=== PATIENT | male | born 1960 | race Caucasian/White ===

== ENCOUNTER 2016-10-04 12:18 | Inpatient (IN) ==
[2016-10-04] MEDS ORDERED: 0.9 % Sodium Chloride 1,000 ML IVC ONE (12:39)
[2016-10-04] MEDS ORDERED: Ipratropium/Albuterol Neb 3 ML IH ONE (12:39)
[2016-10-04] MEDS ORDERED: methylPREDNISolone 125 MG/2 ML VIAL IVP ONE (12:39)
--- NOTE | 2016-10-04 12:46 | Emergency Department Note ---
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 She states he has had a lot of weight loss also. She is a's current cigarette smoker. Pt Subjective Complaint: Neck swelling Location: neck Radiation: neck Pain Scale: 5 Quality: aching Consistency: constant Improves with: nothing Worsens with: nothing Associated symptoms: Reports: shortness of breath, weakness (Generalized) - Related Data Home Medications Medication Instructions Recorded Confirmed Aspirin [Lo-Dose Aspirin EC] 81 mg PO 07/16/16 Atorvastatin [Lipitor] 40 mg PO HS 07/16/16 07/16/16 Clopidogrel Bisulfate [Plavix] 75 mg PO 07/16/16 Ergocalciferol (VITAMIN D2) 50,000 unit PO 07/16/16 [Vitamin D2] Gabapentin [Neurontin] 800 mg PO 07/16/16 Isosorbide MONOnitrate (24 HR) 60 mg PO 07/16/16 [Imdur] Loratadine [Allergy Relief] 10 mg PO 07/16/16 Nitroglycerin [Nitro-Dur] 1 each TD 07/16/16 Pantoprazole Sodium [Protonix] 40 mg PO 07/16/16 07/16/16 Tramadol HCl [Ultram] 50 mg PO BID PRN 07/16/16 07/16/16 Previous Rx's Medication Instructions Recorded levoFLOXacin [Levaquin] 500 mg PO DAILY #10 tablet 07/16/16 predniSONE [PredniSONE] 0 mg PO DAILY #15 tablet 07/16/16 Allergies Allergy/AdvReac Type Severity Reaction Status Date / Time amlodipine AdvReac See Verified 07/16/16 16:21 Comments All systems ED: reviewed and negative except as stated. Constitutional: Denies: fever, chills, weakness, weight change Eyes: Denies: eye pain, eye discharge, vision change ENT ED: Reports: other (Neck swelling). Denies: ear pain, throat pain, dental pain, hearing loss, epistaxis, congestion, dysphagia Cardiovascular: Denies: chest pain, palpitations, dyspnea on exertion, edema, syncope Respiratory: Reports: dyspnea, wheezes. Denies: cough, hemoptysis, stridor Gastrointestinal: Denies: abdominal pain, nausea, vomiting, diarrhea, constipation, hematemesis, melena, hematochezia Genitourinary: Denies: urgency, dysuria, frequency, hematuria Musculoskeletal: Denies: back pain, neck pain, arthralgia, myalgia Integumentary: Denies: rash, abrasion, lesions Neurological: Denies: headache, weakness, numbness, paresthesias, confusion, abnormal gait, vertigo Psychiatric: Denies: anxiety, depression, suicidal thoughts, homicidal thoughts , auditory hallucinations, visual hallucinations Endocrine: Denies: fatigue Hematological/Lymphatic: Denies: easy bleeding, easy bruising Allergic/Immunologic: Denies: facial swelling, urticaria Past Medical History - Past Medical History Medical history: Reports: COPD, coronary artery disease, hyperlipidemia, hypertension Surgical history: Reports: cholecystectomy Psychiatric history: Reports: no psych history - Social History Smoking Status: Current every day smoker Smokeless Tobacco Status: No Alcohol use: Reports: none Drug use: Reports: none Physical Exam - General Limitations: no limitations General appearance: alert - Head Head exam: atraumatic, normocephalic, normal inspection - Eye Eye exam: Present: normal appearance, PERRL, EOMI - ENT ENT exam: normal exam, normal oropharynx, mucous membranes moist - Neck Neck exam: Present: other (Mass in the right and left anterior base.) - Chest Chest inspection: Present: normal inspection, symmetric chest wall rise - Respiratory Respiratory exam: Present: normal lung sounds bilaterally - Cardiovascular Cardiovascular exam: Present: regular rate, normal rhythm, normal heart sounds - Abdominal Exam Abdominal exam: Present: soft, Non-Tender. Absent: tenderness, distention, guarding, rebound, rigidity - Extremities Exam Extremities exam: Present: normal inspection, full ROM. Absent: tenderness, pedal edema - Expanded Lower Extremity Exam Neurovascular/Tendon exam: Absent: motor deficit, sensory deficit, tendon deficit Gait: not tested/not observed - Back Exam Back exam: Present: normal inspection, full ROM. Absent: tenderness - Neurological Exam Neurological exam: Present: alert, oriented X3 - Psychiatric Psychiatric exam: Present: normal affect, normal mood - Skin Skin exam: Present: warm, dry, intact, normal color Course - Reevaluation(s) Reevaluation #1: 56-year-old male who comes in with swelling in his neck for several months. CT scan shows a significant extensive mediastinal supraclavicular lesions most likely lymphoma but could be metastatic squamous cell carcinoma. Consultation obtained with surgery, oncology. The patient will be admitted for further evaluation and treatment. Time: 15:01 - Consultations Consultation #1: Discussed with Dr. Katarina kate, mid to the hospitalist he will see the patient in consult. Time: 15:01 Consultation #2: Discussed with Dr. Walker, he will see in consult Time: 15:02 Vital Signs Temperature 97.7 F 10/04/16 12:28 Pulse Rate 120 10/04/16 12:28 Respiratory Rate 18 10/04/16 12:28 Blood Pressure 89/67 10/04/16 12:28 O2 Sat by Pulse Oximetry 96 10/04/16 12:28 Temperature 97.7 F 10/04/16 12:28 Pulse Rate 120 10/04/16 12:28 Respiratory Rate 18 10/04/16 12:59 Blood Pressure 89/67 10/04/16 12:28 O2 Sat by Pulse Oximetry 96 10/04/16 12:59 Oxygen Delivery Oxygen Delivery Room Air Medical Decision Making - Lab Data Lab results reviewed: Yes I reviewed the patient's lab results. Result diagrams: 10/04/16 12:49 10/04/16 12:49 Lab Results 10/04/16 10/04/16 10/04/16 Range/Units 12:49 12:49 12:49 WBC 8.3 (4.3-11.1) K/mcL RBC 4.36 (4.19-5.50) M/mcL Hgb 13.9 (12.9-16.9) g/dL Hct 39.7 (37.5-50.1) % MCV 91.1 (83.0-100.0) fL MCH 31.9 (28.0-33.3) pg MCHC 35.0 (31.6-35.5) g/dL RDW 13.1 (11.5-14.5) % Plt Count 203 (140-400) K/mcL MPV 9.3 L (9.4-12.4) fL Immature Gran % 1.1 (0-4) % Seg Neutrophils % 56.9 % Lymphocytes % 27.4 % Monocytes % 13.4 % Eosinophils % 0.8 % Basophils % 0.4 % Neutrophils # 4.7 (1.6-8.9) K/mcL Lymphocytes # 2.3 (0.6-4.6) K/mcL Monocytes # 1.1 (0.0-1.3) K/mcL Eosinophils # 0.1 (0.0-0.6) K/mcL Basophils # 0.0 (0.0-0.2) K/mcL PT 13.4 H (9.4-12.1) Seconds INR 1.2 APTT 31.0 (26.0-36.0) Seconds Sodium 135 L (136-145) mEq/L Potassium 4.2 (3.5-4.5) mEq/L Chloride 100 (98-109) mEq/L Carbon Dioxide 25 (19-29) mEq/L BUN 17 (8-26) mg/dL Creatinine 1.20 (0.72-1.25) mg/dL Est GFR ( Amer) > 60 (> 60) Est GFR (Non-Af Amer) > 60 (> 60) BUN/Creatinine Ratio 14 (6-26) Glucose 117 H (70-99) mg/dL Calculated Osmolality 283 (280-300) Lactic Acid (0.5-2.2) mmol/L Calcium 10.3 (8.6-10.8) mg/dL Troponin I (0-0.03) ng/mL B-Natriuretic Peptide (0-100) pg/mL 10/04/16 10/04/16 10/04/16 Range/Units 12:49 12:49 13:32 WBC (4.3-11.1) K/mcL RBC (4.19-5.50) M/mcL Hgb (12.9-16.9) g/dL Hct (37.5-50.1) % MCV (83.0-100.0) fL MCH (28.0-33.3) pg MCHC (31.6-35.5) g/dL RDW (11.5-14.5) % Plt Count (140-400) K/mcL MPV (9.4-12.4) fL Immature Gran % (0-4) % Seg Neutrophils % % Lymphocytes % % Monocytes % % Eosinophils % % Basophils % % Neutrophils # (1.6-8.9) K/mcL Lymphocytes # (0.6-4.6) K/mcL Monocytes # (0.0-1.3) K/mcL Eosinophils # (0.0-0.6) K/mcL Basophils # (0.0-0.2) K/mcL PT (9.4-12.1) Seconds INR APTT (26.0-36.0) Seconds Sodium (136-145) mEq/L Potassium (3.5-4.5) mEq/L Chloride (98-109) mEq/L Carbon Dioxide (19-29) mEq/L BUN (8-26) mg/dL Creatinine (0.72-1.25) mg/dL Est GFR ( Amer) (> 60) Est GFR (Non-Af Amer) (> 60) BUN/Creatinine Ratio (6-26) Glucose (70-99) mg/dL Calculated Osmolality (280-300) Lactic Acid 3.1 H (0.5-2.2) mmol/L Calcium (8.6-10.8) mg/dL Troponin I 0.00 (0-0.03) ng/mL B-Natriuretic Peptide 16 (0-100) pg/mL - Radiology Data Radiology results reviewed: Yes I reviewed the patient's radiology results. Chest CT 10/04/16 00:00 IMPRESSION: Extensive confluent masslike adenopathy is present involving the mediastinum, left hilum, and supraclavicular regions bilaterally. The mass encases numerous mediastinal structures, with mild to moderate narrowing of the left mainstem bronchus and the left main pulmonary artery. The differential favors lymphoma versus metastatic disease, such as from squamous cell carcinoma. Nonspecific small pleural plaques along the anterior margin of the left upper lobe and right middle lobe. Coronary atherosclerosis. D/ / 10/04/2016 14:25:23 Brent Velasquez MD / [facility] Interpreting Provider: Brent Velasquez MD Chest X-Ray 10/04/16 12:39 IMPRESSION: 1. Mediastinal mass, most likely secondary to lymphadenopathy given the provided history of lymphoma. Further evaluation with a contrast-enhanced chest CT is suggested if not recently performed elsewhere. 2. No acute cardiopulmonary disease. D/ / Humberto Barton MD / Humberto Barton MD Interpreting Provider: Humberto Barton MD Soft Tissue Neck CT 10/04/16 12:40 IMPRESSION: 1. Numerous enlarged cervical, supraclavicular, and mediastinal lymph nodes with central low attenuation consistent with necrosis. Findings are suspicious for lymphoma. 2. Asymmetric dilatation of the left laryngeal ventricle and pyriform sinus compatible with vocal cord paralysis. D/ / 10/04/2016 14:27:43 Narda Carlos MD / [facility] Interpreting Provider: Narda Carlos MD - EKG Data EKG #1 EKG attestation: Yes I reviewed and interpreted this EKG. EKG shows normal: sinus rhythm Rate: normal Rhythm: NSR Interpretation: no acute changes
[2016-10-04 13:06] LABS: Basophils % 0.4 %; Eosinophils # 0.1 K/mcL (0.0-0.6); Eosinophils % 0.8 %; Hematocrit 39.7 % (37.5-50.1); Hemoglobin 13.9 g/dL (12.9-16.9); Immature Granulocytes % 1.1 % (0-4); Lymphocytes # 2.3 K/mcL (0.6-4.6); Lymphocytes % 27.4 %; Mean Corpuscular Hemoglobin 31.9 pg (28.0-33.3); Mean Corpuscular Volume 91.1 fL (83.0-100.0); Mean Platelet Volume 9.3 fL (9.4-12.4); Monocytes # 1.1 K/mcL (0.0-1.3); Monocytes % 13.4 %; Neutrophils # 4.7 K/mcL (1.6-8.9); Platelet Count 203 K/mcL (140-400); Red Blood Count 4.36 M/mcL (4.19-5.50); Red Cell Distribution Width 13.1 % (11.5-14.5); Segmented Neutrophils % 56.9 %
[2016-10-04 13:11] LABS: INR 1.2; Prothrombin Time 13.4 Seconds (9.4-12.1)
[2016-10-04 13:22] LABS: BUN/Creatinine Ratio 14 (6-26); Blood Urea Nitrogen 17 mg/dL (8-26); Calcium 10.3 mg/dL (8.6-10.8); Carbon Dioxide 25 mEq/L (19-29); Chloride 100 mEq/L (98-109); Glucose 117 mg/dL (70-99); Osmolality,Calculated 283 (280-300); Potassium 4.2 mEq/L (3.5-4.5); Sodium 135 mEq/L (136-145); eGFR For African Americans > 60 (> 60); eGFR For Non-African Americans > 60 (> 60)
[2016-10-04] MEDS ORDERED: Naloxone 0.4 MG/ML INJ IVP PRN (16:12)
[2016-10-04] MEDS ORDERED: 0.9 % Sodium Chloride 1,000 ML IVC SCH (16:15)
--- NOTE | 2016-10-04 16:43 | Internal Med History&Physical ---
<Shirley Simental - Last Filed: 10/04/16 17:23> Date of Encounter: 10/04/16 Time of Encounter: 16:43 Assessment and Plan (1) Lymphadenopathy Current visit: Yes Status: Acute presented with neck swelling for 2 months prior to presentation. CT soft neck with numerous enlarged cervical, supraclavicular, and mediastinal lymph nodes consistent with necrosis. Chest CT with extensive confluent masslike adenopathy involving the mediastinum, left hilum, and supraclavicular regions bilaterally, concerning for lymphoma versus metastatic disease, such as from squamous cell carcinoma. Received one time dose IV steroids in the ED. Discussed case with Dr. Dr. Bray (Oncology) and hold on further steroids at this time (may alter bx results and concern for tumor lysis syndrome). Adequately oxygenating with NC, no resp distress apparent. General Surgery consulted for excisional bx. (2) Dysphagia Current visit: Yes Status: Acute in the setting of diffuse,extensive lymphadenopthy as noted above. Patient reports not being able to eat solid foods or take medicine for 2 weeks prior to admission. Tolerates thin liquids. Case discussed with ST and will keep NPO until ST evaluates. Qualifiers: Dysphagia type: unspecified Qualified Code(s): R13.10 - Dysphagia, unspecified (3) COPD (chronic obstructive pulmonary disease) Current visit: Yes Status: Acute per hx. Current smoker. With scant wheezing on exam. Afebrile, no elevated WBC. Suspect mild exacerbation. Received IV steroids in ED. Holding on further steroids per Oncology recommendation (see #1). No indication for ATB at this time. Schedule nebs (Xopenex with tachycardia). Closely monitor respiratory status. Qualifiers: Chronic bronchitis type: unspecified Qualified Code(s): J42 - Unspecified chronic bronchitis (4) Lactic acid acidosis Current visit: Yes Status: Acute lactic acid 3.1; in the setting of poor PO intake, possible underlying malignancy. No elevated WBC, afebrile, no obvious infectious etiology. Cont IV fluids. Monitor repeat lactic acid (5) Essential hypertension Current visit: Yes Status: Acute per hx. BP variable in ED but acceptable. Holding home BP medications until able to take PO. Monitor BP and resume BP meds when able. (6) CAD (coronary artery disease) Current visit: Yes Status: Acute per hx. Asymptomatic, denies chest pain. Holding home ASA, palvix, BB until able to take PO. Qualifiers: Qualified Code(s): I25.10 - Atherosclerotic heart disease of [place] coronary artery without angina pectoris (7) DVT prophylaxis Current visit: Yes Status: Acute SCDs Internal Medicine - H&P: HPI Chief complaint: neck swelling Admitted From: Home History of present illness: Mr. Shah is a 56 year old male with PMH CAD, COPD and HTN who presented to [facility] on 10/04/2016 with complaints of neck swelling and trouble swallowing. He was found to have numerous enlarged cervical, supraclavicular, and mediastinal lymph nodes. He was placed in observation status for Oncology and General Surgery evaluation. Information obtained from chart review and patient report. Patient reports neck swelling started a few months ago and has progressively worsened. Says he has not been able to take medicine or eat much over the ;ast 2 weeks because of trouble swallowing. He is able to drink thin liquids without difficulty. No SOB, has intermittent cough. No CP Past Med Surg Social Fam HX - Past Medical History Medical history: COPD, coronary artery disease, hyperlipidemia, hypertension Psychiatric history: no psych history - Past Surgical History Surgical History: cholecystectomy - Social History Smoking Status: Current every day smoker Smokeless Tobacco Status: No Alcohol use: none Drug use: none - Family History Father Hx Family Cancer: Yes (; hx cancer but patient not sure what kind ) Internal Medicine - H&P: Meds Aspirin [Lo-Dose Aspirin EC] 81 mg PO DAILY 07/16/16 [History] Atorvastatin [Lipitor] 40 mg PO HS 07/16/16 [History] Clopidogrel Bisulfate [Plavix] 75 mg PO DAILY 07/16/16 [History] Pantoprazole Sodium [Protonix] 40 mg PO DAILY 07/16/16 [History] Albuterol Sulfate [Ventolin Hfa] 2 puff IH Q4H PRN 10/04/16 [History] Atenolol [Tenormin] 75 mg PO DAILY 10/04/16 [History] Folic Acid 1 mg PO DAILY 10/04/16 [History] Isosorbide MONOnitrate [Isosorbide Mononitrate ER] 120 mg PO DAILY 10/04/16 [ History] Montelukast [Singulair] 10 mg PO DAILY PRN 10/04/16 [History] Nitroglycerin [Nitrostat] 0.4 mg SL Q5M PRN 10/04/16 [History] Ropinirole HCl [Requip] 2 mg PO DAILY 10/04/16 [History] amLODIPine [Norvasc] 5 mg PO DAILY 10/04/16 [History] Allergies amlodipine Adverse Reaction (Verified 07/16/16 16:21) See Comments All Systems PM: A 10-system review of systems was performed and is negative for pertinent findings except as documented above in the HPI. - Constitutional Constitutional: weight loss, no chills, no fever(s), no night sweats - EENT Eyes: no change in vision, no discharge, no pain, no photophobia Ears: no ear discharge, no ear pain, no tinnitus Nose, mouth and throat: dysphagia, neck mass, no nasal discharge, no neck pain, no sore throat - Cardiovascular Cardiovascular ROS IM: no chest pain, no diaphoresis, no dyspnea, no lightheadedness, no palpitations, no syncope - Respiratory Respiratory: no cough, no dyspnea, no wheezing, no excessive phlegm production - Gastrointestinal Gastrointestinal: no abdominal pain, no diarrhea, no hematemesis, no hematochezia, no melena, no nausea, no vomiting - Musculoskeletal Musculoskeletal ROS IM: no numbness, no tingling - Integumentary Integumentary IM: no rash, no unusual bruising - Neurological Neurological ROS: no confusion, no convulsions, no focal weakness, no numbness, no tingling, no tremor(s) - Hematologic/Lymphatic Hematologic/Lymphatic: no easy bruising - Constitutional Vitals: Temp Pulse Resp BP Pulse Ox 97.7 F 110 18 129/95 97 10/04/16 12:28 10/04/16 15:26 10/04/16 16:07 10/04/16 16:07 10/04/16 15:26 General appearance: Present: A&O X 3, no acute distress - Head Head exam: Present: atraumatic, normocephalic - Eye Eye exam: Present: PERRL, conjuntiva pink, sclera anicteric Pupils: Present: PERRL - Neck Neck exam general surgery: Present: lymphadenopathy, supple, trachea midline - Respiratory Respiratory exam: Present: CTAB, wheezes. Absent: accessory muscle use, rales, rhonchi - Cardiovascular Cardiovascular exam: Present: RRR, +S1, +S2. Absent: diastolic murmur, gallop, rubs, systolic murmur - GI/Abdominal GI/Abdominal exam: Present: normal bowel sounds, soft, no peritoneal signs. Absent: distended, tenderness - Extremities Exam Extremities exam: Present: warm, radial pulses palpable and symmetrical. Absent : calf tenderness, cyanotic, pedal edema - Neurological Exam Neurological exam: Present: CN II-XII intact, oriented X3, no focal deficits. Absent: pronater drift, facial droop, speech deficit - Skin Skin exam: Present: dry, intact Internal Med - H&P Results - Labs CBC & Chem 7: 10/04/16 12:49 10/04/16 12:49 <Asif Murray - Last Filed: 10/04/16 19:33> Date of Encounter: 10/04/16 Internal Medicine - H&P: HPI History of present illness: Mr. Shah is a 56 year old male All Systems PM: A 10-system review of systems was performed and is negative for pertinent findings except as documented above in the HPI. - Constitutional Vitals: Temp Pulse Resp BP Pulse Ox 97.7 F 107 16 118/75 94 10/04/16 19:12 10/04/16 19:12 10/04/16 19:12 10/04/16 19:12 10/04/16 19:12 Internal Med - H&P Results - Labs CBC & Chem 7: 10/04/16 12:49 10/04/16 12:49 - Attending Attestation I have personally performed a face to face evaluation on this patient. I have reviewed and agree with the care plan. History and Exam by me shows: Mr Shah has been admitted for dysphagia and large neck mass. Exam Alert. Heart reg Lungs clear Abd soft Large swelling of neck Agree with plan of care as outlined above.
--- NOTE | 2016-10-04 17:01 | General Surgery Consult Note ---
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 It started with solids and progressed to liquids. He does admit to another similar episode before the first, but it was not nearly as severe or as long lasting. He has noticed swelling in the lateral neck bilaterally. The swelling was painless initially, but he is noticing pain with swallowing now. He is having hoarseness, as well. He has some SOB with exertion, even to a few feet, but also has a history of COPD. He has lost at least 40 lbs since 09/18/14. He has been evaluated "three times at urgent cares" and treated with steroids and antibiotics. He says that there was imaging taken at the last visit that he was told was "clear." Past Med Surg Social Fam HX - Past Medical History Medical history: COPD, coronary artery disease, hyperlipidemia, hypertension Psychiatric history: no psych history - Past Surgical History Surgical History: cholecystectomy - Social History Smoking Status: Current every day smoker Smokeless Tobacco Status: No Alcohol use: none Drug use: none - Family History Father Hx Family Cancer: Yes (; hx cancer but patient not sure what kind ) Medications and Allergies Aspirin [Lo-Dose Aspirin EC] 81 mg PO DAILY 07/16/16 [History] Atorvastatin [Lipitor] 40 mg PO HS 07/16/16 [History] Clopidogrel Bisulfate [Plavix] 75 mg PO DAILY 07/16/16 [History] Pantoprazole Sodium [Protonix] 40 mg PO DAILY 07/16/16 [History] Albuterol Sulfate [Ventolin Hfa] 2 puff IH Q4H PRN 10/04/16 [History] Atenolol [Tenormin] 75 mg PO DAILY 10/04/16 [History] Folic Acid 1 mg PO DAILY 10/04/16 [History] Isosorbide MONOnitrate [Isosorbide Mononitrate ER] 120 mg PO DAILY 10/04/16 [ History] Montelukast [Singulair] 10 mg PO DAILY PRN 10/04/16 [History] Nitroglycerin [Nitrostat] 0.4 mg SL Q5M PRN 10/04/16 [History] Ropinirole HCl [Requip] 2 mg PO DAILY 10/04/16 [History] amLODIPine [Norvasc] 5 mg PO DAILY 10/04/16 [History] Allergies amlodipine Adverse Reaction (Verified 07/16/16 16:21) See Comments Review of Systems All systems PM: A 10-system review of systems was performed and is negative for pertinent findings except as documented above in the HPI. - Constitutional as per HPI, fatigue, night sweats, weight loss ("50 lbs" per brother), no chills , no fever(s) - EENT Nose, mouth and throat: change in voice, dysphagia (liquids and solids), hoarseness, neck mass, odynophagia - Respiratory dyspnea on exertion General Surgery Exam Initial Vital Signs Temp Pulse Resp BP Pulse Ox 97.7 F 120 18 89/67 96 10/04/16 12:28 10/04/16 12:28 10/04/16 12:28 10/04/16 12:28 10/04/16 12:28 - General physical appearance well developed, no distress - Eyes normal ocular movement - ENT atraumatic, normocephalic - Neck lymphadenopathy: bilateral (large, hard, immobile, at base of neck dipping behind clavicles) - Respiratory normal expansion, normal respiratory effort, clear to auscultation - Cardiovascular Cardiovascular exam: Present: RRR - Abdomen Abdomen general surgery: Present: bowel sounds present, soft, non tender - Musculoskeletal Present: normal posture - Psychiatric Psychiatric general surgery: Present: appropriate, speech is normal Exam Initial Vital Signs Temp Pulse Resp BP Pulse Ox 97.7 F 120 18 89/67 96 10/04/16 12:28 10/04/16 12:28 10/04/16 12:28 10/04/16 12:28 10/04/16 12:28 Results - Labs 10/04/16 12:49 10/04/16 12:49 Abnormal lab results MPV 9.3 fL (9.4-12.4) L 10/04/16 12:49 PT 13.4 Seconds (9.4-12.1) H 10/04/16 12:49 Sodium 135 mEq/L (136-145) L 10/04/16 12:49 Glucose 117 mg/dL (70-99) H 10/04/16 12:49 Lactic Acid 2.8 mmol/L (0.5-2.2) H 10/04/16 15:34 All other labs normal. - Imaging CT scan - chest: report reviewed ( CT/CT chest w con IMPRESSION: Extensive confluent masslike adenopathy is present involving the mediastinum, left hilum, and supraclavicular regions bilaterally. The mass encases numerous mediastinal structures, with mild to moderate narrowing of the left mainstem bronchus and the left main pulmonary artery. The differential favors lymphoma versus metastatic disease, such as from squamous cell carcinoma. Nonspecific small pleural plaques along the anterior margin of the left upper lobe and right middle lobe. Coronary atherosclerosis. D/T: 10/04 14:11:33 / 10/04/2016 14:25:23 Brent Velasquez MD / [facility] Interpreting Provider: Brent Velasquez MD), image reviewed Additional studies: CT/CT soft tissue neck w con IMPRESSION: 1. Numerous enlarged cervical, supraclavicular, and mediastinal lymph nodes with central low attenuation consistent with necrosis. Findings are suspicious for lymphoma. 2. Asymmetric dilatation of the left laryngeal ventricle and pyriform sinus compatible with vocal cord paralysis. Consult Discharge Plan - Plan Referrals: Chloe Israel MD [Partnered Physician] - <Curtis Linder - Last Filed: 10/05/16 08:00> Date of Encounter: 10/04/16 Review of Systems All systems PM: A 10-system review of systems was performed and is negative for pertinent findings except as documented above in the HPI. General Surgery Exam Initial Vital Signs Temp Pulse Resp BP Pulse Ox 97.7 F 120 18 89/67 96 10/04/16 12:28 10/04/16 12:28 10/04/16 12:28 10/04/16 12:28 10/04/16 12:28 Exam Initial Vital Signs Temp Pulse Resp BP Pulse Ox 97.7 F 120 18 89/67 96 10/04/16 12:28 10/04/16 12:28 10/04/16 12:28 10/04/16 12:28 10/04/16 12:28 Results - Labs 10/05/16 03:36 10/05/16 03:36 Abnormal lab results RBC 3.76 M/mcL (4.19-5.50) L 10/05/16 03:36 Hgb 11.8 g/dL (12.9-16.9) L D 10/05/16 03:36 Hct 35.1 % (37.5-50.1) L 10/05/16 03:36 PT 13.4 Seconds (9.4-12.1) H 10/04/16 12:49 Glucose 123 mg/dL (70-99) H 10/05/16 03:36 Lactic Acid 3.4 mmol/L (0.5-2.2) H 10/04/16 21:44 Diabetes panel 10/05/16 Range/Units 03:36 Sodium 137 (136-145) mEq/L Potassium 4.3 (3.5-4.5) mEq/L Chloride 104 (98-109) mEq/L Carbon Dioxide 24 (19-29) mEq/L BUN 15 (8-26) mg/dL Creatinine 0.82 (0.72-1.25) mg/dL Glucose 123 H (70-99) mg/dL Calcium 9.4 (8.6-10.8) mg/dL AST 20 (5-34) Units/L ALT 18 (0-55) Units/L Alkaline Phosphatase 72 (38-126) Units/L Albumin 3.5 (3.5-5.0) g/dL Calcium panel 10/05/16 Range/Units 03:36 Calcium 9.4 (8.6-10.8) mg/dL Albumin 3.5 (3.5-5.0) g/dL Pituitary panel 10/05/16 Range/Units 03:36 Sodium 137 (136-145) mEq/L Potassium 4.3 (3.5-4.5) mEq/L Chloride 104 (98-109) mEq/L Carbon Dioxide 24 (19-29) mEq/L BUN 15 (8-26) mg/dL Creatinine 0.82 (0.72-1.25) mg/dL Glucose 123 H (70-99) mg/dL Calcium 9.4 (8.6-10.8) mg/dL Adrenal panel 10/05/16 Range/Units 03:36 Sodium 137 (136-145) mEq/L Potassium 4.3 (3.5-4.5) mEq/L Chloride 104 (98-109) mEq/L Carbon Dioxide 24 (19-29) mEq/L BUN 15 (8-26) mg/dL Creatinine 0.82 (0.72-1.25) mg/dL Glucose 123 H (70-99) mg/dL Calcium 9.4 (8.6-10.8) mg/dL Total Bilirubin 0.4 (0.2-1.2) mg/dL AST 20 (5-34) Units/L ALT 18 (0-55) Units/L Alkaline Phosphatase 72 (38-126) Units/L Albumin 3.5 (3.5-5.0) g/dL All other labs normal. - Attending Attestation I examined this patient and my medical decision-making was reviewed with the Resident Physician. I agree with the documented findings, disposition and treatment plan as described except to the extent set forth below. The patient was seen and evaluated with arrest. The initial consultation was for supraclavicular adenopathy. On review the CAT scan the patient actually has an enormous mediastinal tumor completely encasing the great vessels displacing the heart anteriorly and completely encasing the trachea. He also has vocal cord paralysis suggesting that this is an invasive tumor. Hematology and oncology should be consult immediately. I cannot safely provide biopsy services because the great vessels are encased in tumor. I would recommend interventional radiology core biopsy. Treatment should be initiated immediately to prevent airway loss. Curtis Linder MD FACS
--- NOTE | 2016-10-04 18:03 | Oncology Inp Consult Note ---
Date of Encounter: 10/04/16 Time of Encounter: 17:48 Assessment and Plan (1) Mediastinal lymphadenopathy Status: Acute Assessment and plan: I discussed with Mr. Shah and his brother the results of his recent CT chest and neck that showed results concerning for an underlying malignancy, possible lymphoma, although lung cancer is still possible, specially in view of his long history of smoking. Based on the physical exam and subjective history, his airway seems to be overall well patent, although his CT revealed encasement and narrowing of left mainsterm bronchus. At this time in view that his airway seems to be stable and in view that there is not a diagnosis I would prefer to hold off on steroids ( what certainly could obscure the pathologic interpretation if eventually this is lymphoma). I explained the reasoning to proceed with an excisional biopsy in view that lymphoma is the more likely diagnosis, based on his imaging. He expressed agreement with our recommendations. A surgical consult has been requested to explore this option. - If eventually the biopsy results are consistent with Lymphoma, he would require a bone marrow biopsy ( under IR). - In view of his reported history of gait unbalance, I would recommend to complete a CT scan of the brain with IV contrast ( not MRI in view of reported history of spinal metalic implants). Depending of the results of his CT head, we will decide whether a LP is recommended. Recommendations: - Surgical consult to assess for excisional biopsy of enlarged lymph node. - Check LDH, CBC with diff, CMP. - Hold off on steroids for now. - Check CT abdomen/pelvis with IV contrast. - If he experience deterioration of his respiratory status, transfer to ICU for close monitoring/management. - Data of Consult Requesting Physician: Lynn Hankins MD Primary Care Provider: PCP NONE - Consult Narrative Reason for consult: management of thoracic/neck lymphadenopathy, concerning for malignancy. History of present illness: Chief complaint: chest pain, neck pain. Mr. Shah is a 56 year old male with history of CAD s/p PCI years ago ( reports 7 stents ), history of COPD ( no on home oxygen), current smoker, HTN presenting with complaints of neck pain, shortness of breath and chest pain. Oncology consult requested after CT scan of the chest and neck revealed extensive supraclavicular, mediastinal lymphadenopathy concerning for malignancy. Mr. Shah was seen with his brother at the bedside. He reports a history of chest pain going on for the last 6 months, described as a pressure in the middle of his chest to his neck area. He reports that his pain is associate with dysphagia for the same duration of time, associated with decreased PO intake and approximately 40 pounds of weight loss. he also reports shortness of breath for the same duration of time, worse with activity, that gradually has worsened during the last six months, to the point that now he feels unable to ambulate for a few feet. He feels that his constellations of symptoms got worse, so he decided to come to the ED. He drove himself. He reports that lives alone. . He reports having an adult child that has not seen in many years and is not sure where he lives now. He reports a history of heavy drinkers, but denies history of liver complications. Reports that has not ingested alcohol in years. He reports that his father as consequence of lung cancer, and did not receive chemotherapy ( refused it). Denies a family history of hematologic malignancies. He has one brother and 2 sisters who live locally, but not history of cancer in them. He reports being actively smoking, but expressed interest in quitting. reports a history of heart attack many years ago, for which he had approximately 7 stents placed and for which he is taking aspirin and plavix. Denies any recent bleeding event Reports being disabled as a consequence of back injury requiring surgery and metalic plate placement reports generalized weakness but not focal deficits, although feels that his balance has been off lately. Denies using a walker or cane for ambulation. At the time of the visit and while resting he denies shortness of breath and is talking in full sentences. Past Med Surg Social Fam HX - Past Medical History Medical history: COPD, coronary artery disease, hyperlipidemia, hypertension Psychiatric history: no psych history - Past Surgical History Surgical History: cholecystectomy - Social History Smoking Status: Current every day smoker Smokeless Tobacco Status: No Alcohol use: none Drug use: none Occupational status: disabled (Reports being disabled as a consequence of back injury requiring surgery and metalic plate placement. ) - Family History Father Living Status: Cause of : Complications related to untreated lung cancer. refused chemotherapy. Hx Family Cancer: Yes (; hx cancer but patient not sure what kind ) Medications and Allergies Aspirin [Lo-Dose Aspirin EC] 81 mg PO DAILY 07/16/16 [History] Atorvastatin [Lipitor] 40 mg PO HS 07/16/16 [History] Clopidogrel Bisulfate [Plavix] 75 mg PO DAILY 07/16/16 [History] Pantoprazole Sodium [Protonix] 40 mg PO DAILY 07/16/16 [History] Albuterol Sulfate [Ventolin Hfa] 2 puff IH Q4H PRN 10/04/16 [History] Atenolol [Tenormin] 75 mg PO DAILY 10/04/16 [History] Folic Acid 1 mg PO DAILY 10/04/16 [History] Isosorbide MONOnitrate [Isosorbide Mononitrate ER] 120 mg PO DAILY 10/04/16 [ History] Montelukast [Singulair] 10 mg PO DAILY PRN 10/04/16 [History] Nitroglycerin [Nitrostat] 0.4 mg SL Q5M PRN 10/04/16 [History] Ropinirole HCl [Requip] 2 mg PO DAILY 10/04/16 [History] amLODIPine [Norvasc] 5 mg PO DAILY 10/04/16 [History] Allergies amlodipine Adverse Reaction (Verified 07/16/16 16:21) See Comments Constitutional: Present: fatigue, night sweats, weakness, weight loss. Absent: fever(s), headache(s), malaise Nose, mouth and throat: Present: as per HPI, dysphagia (Present.) Cardiovascular: Present: chest pain, dyspnea. Absent: edema, irregular heart rhythm Respiratory: Present: dyspnea, dyspnea on exertion. Absent: hemoptysis, excessive phlegm production Gastrointestinal: Absent: abdominal pain, hematemesis, vomiting Genitourinary: as per HPI, flank pain Integumentary: Absent: bleeding lesions Neurological: Present: lack of coordination. Absent: behavioral changes, loss of vision Psychiatric: Absent: auditory hallucinations, visual hallucinations Endocrine: Present: change in body appearance Hematologic/Lymphatic: Present: as per HPI, lymphadenopathy Oncology - Exam - Constitutional Vitals: Temp Pulse Resp BP Pulse Ox 97.7 F 110 18 129/95 97 10/04/16 12:28 10/04/16 15:26 10/04/16 16:07 10/04/16 16:07 10/04/16 15:26 - Head Head exam: Present: normal inspection - ENT ENT exam: Present: mucous membranes moist, normal oropharynx - Neck Neck exam: Present: lymphadenopathy (supra clavivular lymphadenopathy, more prominent in the left side.) - Respiratory Respiratory exam: Present: CTAB - Cardiovascular Cardiovascular exam: Present: RRR - GI/Abdominal GI/Abdominal exam: Present: normal bowel sounds. Absent: hyperactive bowel sounds, organomegaly, tenderness - Extremities Exam Extremities exam: Present: normal inspection. Absent: pedal edema - Back Exam Back exam: Absent: CVA tenderness (R) - Neurological Exam Neurological exam: Present: CN II-XII intact, oriented X3, no focal deficits. Absent: facial droop (finger nose normally bilateral.) - Psychiatric Psychiatric exam: Present: normal affect - Skin Skin exam: Present: normal color Consult Discharge Plan - Plan Referrals: NONE,PCP [Primary Care Provider] -
[2016-10-04] MEDS: Nicotine 21 MG PATCH.TD24 TD SCH (18:48)
[2016-10-04] MEDS: Pantoprazole 40 MG VIAL IVP SCH (18:48)
[2016-10-04] MEDS: Levalbuterol Neb 1.25 MG/3 ML IH SCH ×2 (20:41→23:15)
[2016-10-05] MEDS: Levalbuterol Neb 1.25 MG/3 ML IH SCH ×6 (03:58→23:38)
[2016-10-05 05:24] LABS: Basophils % 0.2 %; Hematocrit 35.1 % (37.5-50.1); Immature Granulocytes % 1.2 % (0-4); Lymphocytes # 1.2 K/mcL (0.6-4.6); Lymphocytes % 17.6 %; Mean Corpuscular HGB Conc 33.6 g/dL (31.6-35.5); Mean Corpuscular Hemoglobin 31.4 pg (28.0-33.3); Mean Corpuscular Volume 93.4 fL (83.0-100.0); Mean Platelet Volume 9.5 fL (9.4-12.4); Monocytes # 0.6 K/mcL (0.0-1.3); Neutrophils # 4.7 K/mcL (1.6-8.9); Platelet Count 183 K/mcL (140-400); Red Blood Count 3.76 M/mcL (4.19-5.50); Red Cell Distribution Width 13.2 % (11.5-14.5)
[2016-10-05 05:27] LABS: Hemoglobin 11.8 g/dL (12.9-16.9)
[2016-10-05 05:34] LABS: Alanine Aminotransferase 18 Units/L (0-55); Albumin 3.5 g/dL (3.5-5.0); Albumin/Globulin Ratio 1.2 (1.1-2.2); Alkaline Phosphatase 72 Units/L (38-126); Aspartate Amino Transferase 20 Units/L (5-34); BUN/Creatinine Ratio 18 (6-26); Bilirubin,Total 0.4 mg/dL (0.2-1.2); Blood Urea Nitrogen 15 mg/dL (8-26); Calcium 9.4 mg/dL (8.6-10.8); Carbon Dioxide 24 mEq/L (19-29); Chloride 104 mEq/L (98-109); Globulin 2.9 g/dL (2.4-3.5); Glucose 123 mg/dL (70-99); Osmolality,Calculated 286 (280-300); Potassium 4.3 mEq/L (3.5-4.5); Sodium 137 mEq/L (136-145); Total Protein 6.4 g/dL (6.0-8.3); eGFR For African Americans > 60 (> 60); eGFR For Non-African Americans > 60 (> 60)
[2016-10-05] MEDS: Nicotine 21 MG PATCH.TD24 TD SCH (08:59)
[2016-10-05] MEDS: Pantoprazole 40 MG VIAL IVP SCH (08:59)
--- NOTE | 2016-10-05 09:37 | Oncology Inp Progress Note ---
Date of Encounter: 10/05/16 Time of Encounter: 09:35 (1) Mediastinal lymphadenopathy Current Visit: Yes Status: Acute Assessment and plan: I discussed with the surgical team my recommendations to perform an excisional biopsy in view of the concerns for lymphoma. I explained that a CT guided biopsy may delay the diagnosis, in view that an excisional biopsy allows a complete examination of the lymph node ( including gregg architecture). However , I was explained that in view that his lymphadenopathy/tumor is compressing his upper airway and main vessels, an excisional biopsy would be associated with too high risk of complications ( related to the procedure and general anesthesia), including . I discussed this with the patient, who agree with a CT guided biopsy, hopefully to be completed today. He remains NPO. - He received a dose of solumedrol on 10/04. His labs are not suggestive of TLS. I would recommend to monitor LDH and CMP and add uric acid, Mg, and Phosphorus. - He is at high risk of respiratory compromise/complications, so please low threshold to transfer to the ICU if his respiratory status deteriorates. - Will await for preliminary results of CT guided biopsy, If high grade lymphoma is confirmed, a IR guided Bone marrow biopsy will be needed prior to start treatment( for staging purposes). - In view of his reported history of gait unbalance, I would recommend to complete a CT scan of the brain with IV contrast ( not MRI in view of reported history of spinal metalic implants). Depending of the results of his CT head, we will decide whether a LP is recommended. - Hold off on steroids for now. - Check CT abdomen/pelvis with IV contrast for staging purposes. Oncology: Subj Interval history: Chief complaint: chest pressure. Reports persistent pressure in his chest and neck, but has not worsened since yesterday. Denies shortness of breath at rest. He remains NPO in view of expected biopsy procedure. Denies headache, fever, chills. No significant overnight events. reports some dysphagia, but able to swallow his own saliva. Remains in IVF 75 cc/h. lactic acid values trending down. ROS: positive for chest pressure, neck pressure. negative for nausea, vomiting, diarrhea. - Constitutional Vitals: Vital Signs Temp Pulse Resp BP Pulse Ox 10/05/16 07:40 97.4 F L 102 18 129/84 98 10/05/16 03:58 16 97 10/05/16 03:52 97.5 F L 92 17 129/83 98 10/04/16 23:39 98 10/04/16 23:35 97.9 F 107 16 106/69 97 10/04/16 23:16 22 98 10/04/16 19:12 97.7 F 107 16 118/75 94 10/04/16 16:07 18 129/95 Intake and Output 10/04/16 10/05/16 10/05/16 23:59 07:59 15:59 Intake Total 1000 / 1000 0 / 0 1000 / 1000 Output Total 0 / 0 300 / 300 Balance 1000 / 1000 -300 / -300 1000 / 1000 Intake: IV Fluids 1000 / 1000 1000 / 1000 0.9 % Sodium Chloride 1, 1000 / 1000 1000 / 1000 000 ML @ 75 mls/hr IVC . [id number] KELLY Rx#: [id number] Oral 0 / 0 0 / 0 Output: Urine 0 / 0 300 / 300 Other: Meal NPO # Voids 3 Weight 68.096 kg 68.2 kg Patient Weight 10/05/16 23:59 Weight 68.2 kg - Head Head exam: Present: normal inspection - Eye Eye exam: Present: EOMI - Neck Neck exam: Present: lymphadenopathy - Respiratory Respiratory exam: Present: CTAB - Cardiovascular Cardiovascular exam: Present: RRR - GI/Abdominal GI/Abdominal exam: Present: normal bowel sounds - Extremities Exam Extremities exam: Present: normal inspection. Absent: pedal edema, tenderness - Neurological Exam Neurological exam: Present: oriented X3 Oncology: Obj Data - Labs CBC & Chem 7: 10/05/16 03:36 10/05/16 03:36 Labs: Laboratory Results - last 24 hr 10/04/16 10/05/16 10/05/16 21:44 03:36 03:36 WBC 6.5 RBC 3.76 L Hgb 11.8 L D Hct 35.1 L MCV 93.4 MCH 31.4 MCHC 33.6 RDW 13.2 Plt Count 183 MPV 9.5 Immature Gran % 1.2 Seg Neutrophils % 72.0 Lymphocytes % 17.6 Monocytes % 9.0 Eosinophils % 0.0 Basophils % 0.2 Neutrophils # 4.7 Lymphocytes # 1.2 Monocytes # 0.6 Eosinophils # 0.0 Basophils # 0.0 Sodium 137 Potassium 4.3 Chloride 104 Carbon Dioxide 24 BUN 15 Creatinine 0.82 Est GFR ( Amer) > 60 Est GFR (Non-Af Amer) > 60 BUN/Creatinine Ratio 18 Glucose 123 H Calculated Osmolality 286 Lactic Acid 3.4 H Calcium 9.4 Total Bilirubin 0.4 AST 20 ALT 18 Alkaline Phosphatase 72 Serum Total Protein 6.4 Albumin 3.5 Globulin 2.9 Albumin/Globulin Ratio 1.2 10/05/16 08:29 WBC RBC Hgb Hct MCV MCH MCHC RDW Plt Count MPV Immature Gran % Seg Neutrophils % Lymphocytes % Monocytes % Eosinophils % Basophils % Neutrophils # Lymphocytes # Monocytes # Eosinophils # Basophils # Sodium Potassium Chloride Carbon Dioxide BUN Creatinine Est GFR ( Amer) Est GFR (Non-Af Amer) BUN/Creatinine Ratio Glucose Calculated Osmolality Lactic Acid 2.4 H Calcium Total Bilirubin AST ALT Alkaline Phosphatase Serum Total Protein Albumin Globulin Albumin/Globulin Ratio - ABG Interpretation ABG results: PT/INR, D-dimer PT 13.4 Seconds (9.4-12.1) H 10/04/16 12:49 Consult Discharge Plan - Plan Referrals: Chloe Israel MD [Partnered Physician] -
--- NOTE | 2016-10-05 11:16 | Internal Med Progress Note ---
Date of Encounter: 10/05/16 Time of Encounter: 11:09 - Assessment and plan (1) Mediastinal lymphadenopathy Current Visit: Yes Status: Acute Assessment and plan: Oncology evaluation appreciated IR to perform CT guided lymph node biopsy in am CT chest, CT abd/pelvis ordered for staging concern for TLS as per oncology-f/u uric acid, LDH, CMP, mg, phos continue IV fluids O2 supplementation as needed will closely monitor respiratory status oncology evaluation appreciated Speech therapy evaluation noted and started diet as per their recommendations NPO after midnight for biopsy in am (2) CAD (coronary artery disease) Current Visit: Yes Status: Acute Assessment and plan: Resume ASA and Plavix in am after the biopsy start BB at a lower dose given current BP readings Qualifiers: Coronary Disease-Associated Artery/Lesion type: unspecified vessel or lesion type [place] vs. transplanted heart: unspecified whether [place] or transplanted heart Associated angina: with unspecified angina Qualified Code (s): I25.119 - Atherosclerotic heart disease of [place] coronary artery with unspecified angina pectoris (3) COPD (chronic obstructive pulmonary disease) Current Visit: Yes Status: Acute Assessment and plan: not in acute exacerbation continue bronchodilator support as needed smoking cessation counseling provided nicotine replacement therapy provided Qualifiers: Chronic bronchitis type: unspecified Qualified Code(s): J42 - Unspecified chronic bronchitis (4) Essential hypertension Current Visit: Yes Status: Acute Assessment and plan: BP within acceptable range holding antihypertensive medications at this time given current BP readings will continue to closely monitor (5) DVT prophylaxis Current Visit: Yes Status: Acute Assessment and plan: Heparin SQ (6) Lactic acid acidosis Current Visit: Yes Status: Acute Assessment and plan: Likely secondary to underlying malignancy will continue IV fluids continue to closely monitor - Subjective Interval history: Pt seen and examined with family present at bedside. Pt reports of having chronic back pain. Reports of mild shortness of breath but is currently saturating 100% on room air. IR consulted as CT guided biopsy. CT head, CT abd/pelvis ordered for staging purposes - Constitutional Vitals: Temp Pulse Resp BP Pulse Ox 97.5 F L 112 16 104/73 96 10/05/16 10:33 10/05/16 10:33 10/05/16 10:33 10/05/16 10:33 10/05/16 10:33 General appearance: Present: cooperative, A&O X 3, pleasant, no acute distress, answers questions appropriately - Head Head exam: Present: atraumatic, normocephalic - Eye Eye exam: Present: conjuntiva pink, sclera anicteric - Respiratory Respiratory exam: Present: CTAB. Absent: respiratory distress, wheezes - Cardiovascular Cardiovascular exam: Present: RRR, +S1, +S2, tachycardia - GI/Abdominal GI/Abdominal exam: Present: normal bowel sounds, soft, no peritoneal signs. Absent: distended, tenderness - Extremities Exam Extremities exam: Present: warm, radial pulses palpable and symmetrical. Absent : calf tenderness, cyanotic, pedal edema - Neurological Exam Neurological exam: Present: alert, oriented X3 - Psychiatric Psychiatric exam: Present: normal affect, normal mood Internal Medicine: Result - Labs CBC & Chem 7: 10/05/16 03:36 10/05/16 03:36 Labs: Short CBC 10/05/16 Range/Units 03:36 WBC 6.5 (4.3-11.1) K/mcL Hgb 11.8 L D (12.9-16.9) g/dL Hct 35.1 L (37.5-50.1) % Plt Count 183 (140-400) K/mcL Neutrophils # 4.7 (1.6-8.9) K/mcL BMP 10/05/16 03:36 Sodium 137 Potassium 4.3 Chloride 104 Carbon Dioxide 24 BUN 15 Creatinine 0.82 Glucose 123 H Calcium 9.4 Liver Function 10/05/16 Range/Units 03:36 Total Bilirubin 0.4 (0.2-1.2) mg/dL AST 20 (5-34) Units/L ALT 18 (0-55) Units/L Alkaline Phosphatase 72 (38-126) Units/L Albumin 3.5 (3.5-5.0) g/dL - ABG Interpretation ABG results: PT/INR, D-dimer PT 13.4 Seconds (9.4-12.1) H 10/04/16 12:49 - Impressions Impressions Videofluoroscopic Swallow 10/05/16 00:01 IMPRESSION: Swallowing mechanism grossly within normal limits without evidence of aspiration. Please see separate speech pathology report for full discussion of findings and recommendations. D/ / Doug Pinto MD / Doug Pinto MD Interpreting Provider: Doug Pinto MD - VTE Documentation of Mechanical Device: Intermittent pneumatic compression device Consult Discharge Plan - Plan Referrals: Chloe Israel MD [Partnered Physician] -
[2016-10-05] MEDS ORDERED: *HR* HYDROcodone/Acet 5/325 mg TABLET PO PRN (11:19)
[2016-10-05] MEDS: 0.9 % Sodium Chloride 1,000 ML IVC SCH ×2 (11:22→18:06)
--- NOTE | 2016-10-05 14:46 | Electrocardiograph Report ---
[place] [address] Test Date: 2016-10-04 Pat Name: Mata [place] Department: 105 Room: 3A23 Gender: M Search Engine Optimization Analyst: [facility] : 1960 Requested By: Addi Pastor Order Number: [id number] Reading MD: Amari Hernandez MD Measurements Intervals [place] Rate: 116 P: 59 TN: 122 QRS: -8 QRSD: 72 T: 72 QT: 315 QTc: 384 Interpretive Statements SINUS TACHYCARDIA Electronically Signed On 10-05-2016 14:45:02 EDT by Amari Hernandez MD
[2016-10-05] MEDS: Ipratropium/Albuterol Neb 3 ML IH SCH ×3 (15:46→23:38)
[2016-10-05 17:12] LABS: Phosphorous 2.5 mg/dL (2.3-4.7); Uric Acid 5.8 mg/dL (3.5-7.2)
[2016-10-05] MEDS: *HR* Heparin 5,000 UNIT/ML VIAL SQ SCH (18:05)
[2016-10-06] MEDS: 0.9 % Sodium Chloride 1,000 ML IVC SCH ×3 (00:27→19:07)
[2016-10-06] MEDS: Ipratropium/Albuterol Neb 3 ML IH SCH ×6 (03:27→23:24)
[2016-10-06] MEDS: Levalbuterol Neb 1.25 MG/3 ML IH SCH ×6 (03:27→23:34)
[2016-10-06] MEDS: Ondansetron 4 MG/2 ML VIAL IVP PRN ×2 (04:07→22:15)
[2016-10-06 05:07] LABS: Basophils % 0.2 %; Eosinophils % 0.4 %; Hematocrit 35.2 % (37.5-50.1); Hemoglobin 12.1 g/dL (12.9-16.9); Immature Granulocytes % 0.8 % (0-4); Lymphocytes # 2.2 K/mcL (0.6-4.6); Lymphocytes % 24.2 %; Mean Corpuscular HGB Conc 34.4 g/dL (31.6-35.5); Mean Corpuscular Hemoglobin 32.4 pg (28.0-33.3); Mean Corpuscular Volume 94.4 fL (83.0-100.0); Mean Platelet Volume 9.2 fL (9.4-12.4); Monocytes # 0.8 K/mcL (0.0-1.3); Monocytes % 9.2 %; Neutrophils # 5.9 K/mcL (1.6-8.9); Platelet Count 177 K/mcL (140-400); Red Blood Count 3.73 M/mcL (4.19-5.50); Red Cell Distribution Width 13.6 % (11.5-14.5); Segmented Neutrophils % 65.2 %
[2016-10-06 05:16] LABS: Alanine Aminotransferase 17 Units/L (0-55); Albumin 3.5 g/dL (3.5-5.0); Albumin/Globulin Ratio 1.3 (1.1-2.2); Alkaline Phosphatase 66 Units/L (38-126); Aspartate Amino Transferase 23 Units/L (5-34); BUN/Creatinine Ratio 14 (6-26); Bilirubin,Total 0.5 mg/dL (0.2-1.2); Blood Urea Nitrogen 11 mg/dL (8-26); Calcium 9.1 mg/dL (8.6-10.8); Carbon Dioxide 22 mEq/L (19-29); Chloride 108 mEq/L (98-109); Globulin 2.7 g/dL (2.4-3.5); Glucose 100 mg/dL (70-99); Osmolality,Calculated 281 (280-300); Phosphorous 2.2 mg/dL (2.3-4.7); Sodium 136 mEq/L (136-145); Total Protein 6.2 g/dL (6.0-8.3); eGFR For African Americans > 60 (> 60); eGFR For Non-African Americans > 60 (> 60)
[2016-10-06] MEDS: *HR* Heparin 5,000 UNIT/ML VIAL SQ SCH ×2 (05:37→19:08)
--- NOTE | 2016-10-06 07:57 | General Surgery Progress Note ---
<Reyes Grider - Last Filed: 10/06/16 07:55> Date of Encounter: 10/06/16 Time of Encounter: 06:45 - Assessment and Plan (1) Mediastinal lymphadenopathy Current Visit: Yes Status: Acute Lymphoma vs lung cancer Plan for IR CT-guided bx this morning, scheduled for 10:45 am Considering compression of both trachea and esophagus, evaluation and treatment should occur during this hospital stay, if possible Treatment plan per oncology to follow pathology results Given intimate involvement of the lymphadenopathy with the trachea, esophagus, and great vessels, surgical approach is not appropriate at this time We will sign off at this time. Thank you for involving us in this patient's care. Please contact us with any questions. 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 Current Visit: Yes Status: Acute See plan of care above Subjective Patient reports: no new complaints, still having pain, voiding w/o difficulty, nausea, vomiting ("phlegm" likely own secretions), afebrile Objective Vital Signs - Last 8 Hours Temp Pulse Resp BP Pulse Ox 10/06/16 07:39 18 96 10/06/16 06:27 97.5 F L 95 18 144/87 95 10/06/16 05:48 97.9 F 78 14 135/89 98 10/06/16 00:19 97.6 F 101 14 135/90 97 Intake and Output 10/05/16 10/05/16 10/06/16 15:59 23:59 07:59 Intake Total 1000 / 1000 1240 / 1240 1000 / 1000 Output Total 0 / 0 0 / 0 0 / 0 Balance 1000 / 1000 1240 / 1240 1000 / 1000 Intake: IV Fluids 1000 / 1000 1000 / 1000 1000 / 1000 0.9 % Sodium Chloride 1, 1000 / 1000 1000 / 1000 1000 / 1000 000 ML @ 150 mls/hr IVC . Q6H40M [facility] Rx#:[id number] Oral 240 / 240 0 / 0 Output: Urine 0 / 0 0 / 0 0 / 0 Other: Meal NPO Dinner Percent of Meal Consumed 10% Stool Size Small Stool Consistency formed Stool Color Brown # Voids 1 1 # Bowel Movements 1 1 Weight 67.812 kg Blood Glucose* 134 110 Patient Weight 10/06/16 23:59 Weight 67.812 kg - General physical appearance well developed, no distress, chronically ill - Eyes normal ocular movement - ENT atraumatic, normocephalic - Respiratory normal expansion, normal respiratory effort, clear to auscultation (good movement of air) - Cardiovascular Cardiovascular exam: Present: RRR - Abdomen Abdomen: Present: bowel sounds present, soft, non tender - Neurologic other (hoarseness) - Psychiatric other (conversant and appropriate) - Labs 10/06/16 04:55 10/06/16 04:55 Diabetes panel 10/06/16 Range/Units 04:55 Sodium 136 (136-145) mEq/L Potassium 4.0 (3.5-4.5) mEq/L Chloride 108 (98-109) mEq/L Carbon Dioxide 22 (19-29) mEq/L BUN 11 (8-26) mg/dL Creatinine 0.76 (0.72-1.25) mg/dL Glucose 100 H (70-99) mg/dL Calcium 9.1 (8.6-10.8) mg/dL AST 23 (5-34) Units/L ALT 17 (0-55) Units/L Alkaline Phosphatase 66 (38-126) Units/L Albumin 3.5 (3.5-5.0) g/dL Calcium panel 10/05/16 10/06/16 Range/Units 16:40 04:55 Calcium 9.1 (8.6-10.8) mg/dL Phosphorus 2.5 2.2 L (2.3-4.7) mg/dL Albumin 3.5 (3.5-5.0) g/dL Pituitary panel 10/06/16 Range/Units 04:55 Sodium 136 (136-145) mEq/L Potassium 4.0 (3.5-4.5) mEq/L Chloride 108 (98-109) mEq/L Carbon Dioxide 22 (19-29) mEq/L BUN 11 (8-26) mg/dL Creatinine 0.76 (0.72-1.25) mg/dL Glucose 100 H (70-99) mg/dL Calcium 9.1 (8.6-10.8) mg/dL Adrenal panel 10/06/16 Range/Units 04:55 Sodium 136 (136-145) mEq/L Potassium 4.0 (3.5-4.5) mEq/L Chloride 108 (98-109) mEq/L Carbon Dioxide 22 (19-29) mEq/L BUN 11 (8-26) mg/dL Creatinine 0.76 (0.72-1.25) mg/dL Glucose 100 H (70-99) mg/dL Calcium 9.1 (8.6-10.8) mg/dL Total Bilirubin 0.5 (0.2-1.2) mg/dL AST 23 (5-34) Units/L ALT 17 (0-55) Units/L Alkaline Phosphatase 66 (38-126) Units/L Albumin 3.5 (3.5-5.0) g/dL - VTE Documentation of Mechanical Device: Intermittent pneumatic compression device Consult Discharge Plan - Plan Referrals: Katya Knox BED MACHINE OPERATOR [Advanced Practice Nurse] - 10/13/16 1:00 pm <Curtis Linder - Last Filed: 10/06/16 08:19> Date of Encounter: 10/06/16 Objective Vital Signs - Last 8 Hours Temp Pulse Resp BP Pulse Ox 10/06/16 07:39 18 96 10/06/16 06:27 97.5 F L 95 18 144/87 95 10/06/16 05:48 97.9 F 78 14 135/89 98 10/06/16 00:19 97.6 F 101 14 135/90 97 Intake and Output 10/05/16 10/06/16 10/06/16 23:59 07:59 15:59 Intake Total 1240 / 1240 1000 / 1000 Output Total 0 / 0 0 / 0 Balance 1240 / 1240 1000 / 1000 Intake: IV Fluids 1000 / 1000 1000 / 1000 0.9 % Sodium Chloride 1, 1000 / 1000 1000 / 1000 000 ML @ 150 mls/hr IVC . Q6H40M [facility] Rx#:[id number] Oral 240 / 240 0 / 0 Output: Urine 0 / 0 0 / 0 Other: Meal Dinner Percent of Meal Consumed 10% Stool Size Small Stool Consistency formed Stool Color Brown # Voids 1 # Bowel Movements 1 1 Weight 67.812 kg Blood Glucose* 110 Patient Weight 10/06/16 23:59 Weight 67.812 kg - Labs 10/06/16 04:55 10/06/16 04:55 Diabetes panel 10/06/16 Range/Units 04:55 Sodium 136 (136-145) mEq/L Potassium 4.0 (3.5-4.5) mEq/L Chloride 108 (98-109) mEq/L Carbon Dioxide 22 (19-29) mEq/L BUN 11 (8-26) mg/dL Creatinine 0.76 (0.72-1.25) mg/dL Glucose 100 H (70-99) mg/dL Calcium 9.1 (8.6-10.8) mg/dL AST 23 (5-34) Units/L ALT 17 (0-55) Units/L Alkaline Phosphatase 66 (38-126) Units/L Albumin 3.5 (3.5-5.0) g/dL Calcium panel 10/05/16 10/06/16 Range/Units 16:40 04:55 Calcium 9.1 (8.6-10.8) mg/dL Phosphorus 2.5 2.2 L (2.3-4.7) mg/dL Albumin 3.5 (3.5-5.0) g/dL Pituitary panel 10/06/16 Range/Units 04:55 Sodium 136 (136-145) mEq/L Potassium 4.0 (3.5-4.5) mEq/L Chloride 108 (98-109) mEq/L Carbon Dioxide 22 (19-29) mEq/L BUN 11 (8-26) mg/dL Creatinine 0.76 (0.72-1.25) mg/dL Glucose 100 H (70-99) mg/dL Calcium 9.1 (8.6-10.8) mg/dL Adrenal panel 10/06/16 Range/Units 04:55 Sodium 136 (136-145) mEq/L Potassium 4.0 (3.5-4.5) mEq/L Chloride 108 (98-109) mEq/L Carbon Dioxide 22 (19-29) mEq/L BUN 11 (8-26) mg/dL Creatinine 0.76 (0.72-1.25) mg/dL Glucose 100 H (70-99) mg/dL Calcium 9.1 (8.6-10.8) mg/dL Total Bilirubin 0.5 (0.2-1.2) mg/dL AST 23 (5-34) Units/L ALT 17 (0-55) Units/L Alkaline Phosphatase 66 (38-126) Units/L Albumin 3.5 (3.5-5.0) g/dL - Attending Attestation I examined this patient and my medical decision-making was reviewed with the Resident Physician. I agree with the documented findings, disposition and treatment plan as described except to the extent set forth below. The patient is seen in evaluated. The contiguous tumor encases the andria, trachea, great vessels, and involves both supraclavicular lymph nodes. Biopsy is best accomplished with interventional radiology to assist in visualization of these encased structures. I realize that this provides less tissue for diagnosis. Anesthetic with extensive tracheal compression and vocal cord paralysis is directly contraindicated. Curtis Linder MD FACS
[2016-10-06] MEDS: Aspirin Enteric Coated 81 MG Tablet PO SCH (08:52)
[2016-10-06] MEDS: Nicotine 21 MG PATCH.TD24 TD SCH (08:52)
[2016-10-06] MEDS: Pantoprazole 40 MG VIAL IVP SCH (08:53)
--- NOTE | 2016-10-06 10:02 | Oncology Inp Progress Note ---
Date of Encounter: 10/06/16 Time of Encounter: 09:59 (1) Mediastinal lymphadenopathy Current Visit: Yes Status: Acute Assessment and plan: - I appreciate surgery input. Surgery recommended against excisional biopsy in view of high risk of complications, including . - Case discussed during thoracic tumor board. Recommendations to go ahead with CT guided biopsy ( obtain core sample). - If diagnostic consistent with DLBCL, will recommend to start CHOP as inpatient. I discussed with him the option of transfer to [place], specially if his pathology is consistent with a very aggressive NHL. -I expect that he will need cancer related therapy as inpatient ( agent will depend of pathology results ). - He is at high risk of TLS. Please start allopurinol 300 mg daily for prophylaxis. - He received a dose of solumedrol on 10/04. His labs are not suggestive of TLS. I would recommend to monitor LDH and CMP and add uric acid, Mg, and Phosphorus daily for now. - He is at high risk of respiratory compromise/complications, so please low threshold to transfer to the ICU if his respiratory status deteriorates. - If high grade lymphoma is confirmed, a IR guided Bone marrow biopsy will be needed prior to start treatment( for staging purposes). - Hold off on steroids for now. - CT head showed not findings suggestive of FUEL CELL DESIGNER involvement. - Check CT abdomen/pelvis with IV contrast for staging purposes. Oncology: Subj Interval history: Chief complaint: shortness of breath. Mr. Shah feels that his shortness of breath has worsened since yesterday. He is currently in supplemental oxygen by [place]. He feels that he experienced worsening cough and shortness of breath yesterday after eating dinner. Reports that dinner initially was well tolerated, but later on felt sick. Patient seen with nurse at bedside. No fever or chills. He is currently NPO for planned CT guided biopsy. Reports persistent pressure in his chest and neck, but speaking in full sentences during the visit. Pain is not radiated. Reports some nausea yesterday after eating dinner. Social history: He was unacompanied during the visit. He lives alone, independent prior to admission, but reports that his brother lives close by. ROS: Positive for chest pain, shortness of breath. Denies headache, visual changes. Skin: no lesions. Respiratory: positive for SOB, cough. GI: positive for nausea. - Constitutional Vitals: Vital Signs Temp Pulse Resp BP Pulse Ox 10/06/16 09:00 97 10/06/16 07:39 18 96 10/06/16 06:27 97.5 F L 95 18 144/87 95 10/06/16 05:48 97.9 F 78 14 135/89 98 10/06/16 00:19 97.6 F 101 14 135/90 97 10/05/16 23:38 97 10/05/16 20:25 100.1 F H 105 14 118/64 97 10/05/16 20:03 15 96 10/05/16 15:49 16 95 10/05/16 15:16 97.3 F L 95 18 121/84 98 10/05/16 11:18 16 96 10/05/16 10:33 97.7 F 110 16 104/73 96 Intake and Output 10/05/16 10/06/16 10/06/16 23:59 07:59 15:59 Intake Total 1240 / 1240 1999 0 / 0 Output Total 0 / 0 0 / 0 Balance 1240 / 1240 1999 0 / 0 Intake: IV Fluids 1000 / 1000 1999 0.9 % Sodium Chloride 1, 1000 / 1000 1999 000 ML @ 150 mls/hr IVC . Q6H40M [facility] Rx#:[id number] Oral 240 / 240 0 / 0 0 / 0 Output: Urine 0 / 0 0 / 0 Other: Meal Dinner NPO Percent of Meal Consumed 10% 0% Stool Size Small Stool Consistency formed Stool Color Brown # Voids 1 # Bowel Movements 1 1 Weight 67.812 kg Blood Glucose* 110 Patient Weight 10/06/16 23:59 Weight 67.812 kg - Head Head exam: Present: normal inspection - Neck Neck exam: Present: lymphadenopathy (supra clavicular lymphadenopathy.) - Respiratory Additional comments: Good inspiratory effort with bilateral air entry. Some trasmitted upper respiratory sounds. No use of accessory muscles while breathing. no wheezing. No pain with palpation of thoracic wall. - Cardiovascular Cardiovascular exam: Present: RRR Oncology: Obj Data - Labs CBC & Chem 7: 10/06/16 04:55 10/06/16 04:55 Labs: Laboratory Results - last 24 hr 10/05/16 10/05/16 10/05/16 11:26 12:31 16:40 WBC RBC Hgb Hct MCV MCH MCHC RDW Plt Count MPV Immature Gran % Seg Neutrophils % Lymphocytes % Monocytes % Eosinophils % Basophils % Neutrophils # Lymphocytes # Monocytes # Eosinophils # Basophils # Sodium Potassium Chloride Carbon Dioxide BUN Creatinine Est GFR ( Amer) Est GFR (Non-Af Amer) BUN/Creatinine Ratio Glucose POC Glucose 134 H Calculated Osmolality Lactic Acid 3.1 H 3.4 H Uric Acid Calcium Phosphorus Magnesium Total Bilirubin AST ALT Alkaline Phosphatase Lactate Dehydrogenase Serum Total Protein Albumin Globulin Albumin/Globulin Ratio 10/05/16 10/05/16 10/06/16 16:40 18:51 00:13 WBC RBC Hgb Hct MCV MCH MCHC RDW Plt Count MPV Immature Gran % Seg Neutrophils % Lymphocytes % Monocytes % Eosinophils % Basophils % Neutrophils # Lymphocytes # Monocytes # Eosinophils # Basophils # Sodium Potassium Chloride Carbon Dioxide BUN Creatinine Est GFR ( Amer) Est GFR (Non-Af Amer) BUN/Creatinine Ratio Glucose POC Glucose 124 H Calculated Osmolality Lactic Acid 3.5 H Uric Acid 5.8 Calcium Phosphorus 2.5 Magnesium 2.0 Total Bilirubin AST ALT Alkaline Phosphatase Lactate Dehydrogenase 466 H Serum Total Protein Albumin Globulin Albumin/Globulin Ratio 10/06/16 10/06/16 10/06/16 00:28 04:55 04:55 WBC 9.1 RBC 3.73 L Hgb 12.1 L Hct 35.2 L MCV 94.4 MCH 32.4 MCHC 34.4 RDW 13.6 Plt Count 177 MPV 9.2 L Immature Gran % 0.8 Seg Neutrophils % 65.2 Lymphocytes % 24.2 Monocytes % 9.2 Eosinophils % 0.4 Basophils % 0.2 Neutrophils # 5.9 Lymphocytes # 2.2 Monocytes # 0.8 Eosinophils # 0.0 Basophils # 0.0 Sodium 136 Potassium 4.0 Chloride 108 Carbon Dioxide 22 BUN 11 Creatinine 0.76 Est GFR ( Amer) > 60 Est GFR (Non-Af Amer) > 60 BUN/Creatinine Ratio 14 Glucose 100 H POC Glucose Calculated Osmolality 281 Lactic Acid 2.6 H Uric Acid Calcium 9.1 Phosphorus 2.2 L Magnesium 2.0 Total Bilirubin 0.5 AST 23 ALT 17 Alkaline Phosphatase 66 Lactate Dehydrogenase Serum Total Protein 6.2 Albumin 3.5 Globulin 2.7 Albumin/Globulin Ratio 1.3 10/06/16 10/06/16 04:55 05:48 WBC RBC Hgb Hct MCV MCH MCHC RDW Plt Count MPV Immature Gran % Seg Neutrophils % Lymphocytes % Monocytes % Eosinophils % Basophils % Neutrophils # Lymphocytes # Monocytes # Eosinophils # Basophils # Sodium Potassium Chloride Carbon Dioxide BUN Creatinine Est GFR ( Amer) Est GFR (Non-Af Amer) BUN/Creatinine Ratio Glucose POC Glucose 110 H Calculated Osmolality Lactic Acid 1.7 Uric Acid Calcium Phosphorus Magnesium Total Bilirubin AST ALT Alkaline Phosphatase Lactate Dehydrogenase Serum Total Protein Albumin Globulin Albumin/Globulin Ratio - Impressions Impressions Videofluoroscopic Swallow 10/05/16 00:01 IMPRESSION: Swallowing mechanism grossly within normal limits without evidence of aspiration. Please see separate speech pathology report for full discussion of findings and recommendations. D/ / Doug Pinto MD / Doug Pinto MD Interpreting Provider: Doug Pinto MD Abdomen/Pelvis CT 10/05/16 13:00 IMPRESSION: No lymphadenopathy or other evidence of metastatic disease within the abdomen or pelvis. Spleen size is within normal limits. D/ / 10/05/2016 14:08:18 Brent Velasquez MD / bcarter Interpreting Provider: Brent Velasquez MD Head CT 10/05/16 13:00 IMPRESSION: 1. No acute intracranial abnormality. 2. No evidence of intracranial metastasis. D/ / Trevor Adame MD / Trevor Adame MD Interpreting Provider: Trevor Adame MD - ABG Interpretation ABG results: PT/INR, D-dimer PT 13.4 Seconds (9.4-12.1) H 10/04/16 12:49 Consult Discharge Plan - Plan Referrals: Katya Knox SOLID WASTE TECHNICIAN [Advanced Practice Nurse] - 10/13/16 1:00 pm
[2016-10-06] MEDS ORDERED: *HR* Promethazine 25 MG/ML VIAL ONE (11:10)
--- NOTE | 2016-10-06 11:36 | Internal Med Progress Note ---
Date of Encounter: 10/07/16 Time of Encounter: 11:36 - Assessment and plan (1) Mediastinal lymphadenopathy Current Visit: Yes Status: Acute Assessment and plan: Oncology evaluation appreciated IR to perform CT guided lymph node biopsy today (10/06/16) CT head, CT abd/pelvis negative for any metastatic disease continue IV fluids O2 supplementation as needed will closely monitor respiratory status oncology evaluation appreciated Speech therapy evaluation noted and started diet as per their recommendations (2) CAD (coronary artery disease) Current Visit: Yes Status: Acute Qualifiers: Coronary Disease-Associated Artery/Lesion type: unspecified vessel or lesion type [place] vs. transplanted heart: unspecified whether [place] or transplanted heart Associated angina: with unspecified angina Qualified Code (s): I25.119 - Atherosclerotic heart disease of [place] coronary artery with unspecified angina pectoris (3) COPD (chronic obstructive pulmonary disease) Current Visit: Yes Status: Acute Assessment and plan: not in acute exacerbation continue bronchodilator support as needed smoking cessation counseling provided nicotine replacement therapy provided Qualifiers: COPD type: unspecified COPD Qualified Code(s): J44.9 - Chronic obstructive pulmonary disease, unspecified (4) Essential hypertension Current Visit: Yes Status: Acute Assessment and plan: BP within acceptable range will closely monitor restarting home medications as needed (5) DVT prophylaxis Current Visit: Yes Status: Acute Assessment and plan: Heparin SQ (6) Lactic acid acidosis Current Visit: Yes Status: Resolved - Subjective Interval history: Pt seen and examined with family present at bedside. scheduled for CT guided biopsy of the lymph node by IR No overnight issues reported - Constitutional Vitals: Temp Pulse Resp BP Pulse Ox 97.5 F L 95 18 144/87 97 10/06/16 06:27 10/06/16 06:27 10/06/16 07:39 10/06/16 06:27 10/06/16 09:00 General appearance: Present: cooperative, A&O X 3, pleasant, no acute distress, answers questions appropriately - Respiratory Respiratory exam: Absent: respiratory distress, wheezes - Cardiovascular Cardiovascular exam: Present: RRR, +S1, +S2 - GI/Abdominal GI/Abdominal exam: Present: normal bowel sounds, soft. Absent: tenderness - Extremities Exam Extremities exam: Present: warm. Absent: calf tenderness Internal Medicine: Result - Labs CBC & Chem 7: 10/06/16 04:55 10/06/16 04:55 Labs: Short CBC 10/06/16 Range/Units 04:55 WBC 9.1 (4.3-11.1) K/mcL Hgb 12.1 L (12.9-16.9) g/dL Hct 35.2 L (37.5-50.1) % Plt Count 177 (140-400) K/mcL Neutrophils # 5.9 (1.6-8.9) K/mcL BMP 10/06/16 04:55 Sodium 136 Potassium 4.0 Chloride 108 Carbon Dioxide 22 BUN 11 Creatinine 0.76 Glucose 100 H Calcium 9.1 Liver Function 10/06/16 Range/Units 04:55 Total Bilirubin 0.5 (0.2-1.2) mg/dL AST 23 (5-34) Units/L ALT 17 (0-55) Units/L Alkaline Phosphatase 66 (38-126) Units/L Albumin 3.5 (3.5-5.0) g/dL - ABG Interpretation ABG results: PT/INR, D-dimer PT 13.4 Seconds (9.4-12.1) H 10/04/16 12:49 - Impressions Impressions Abdomen/Pelvis CT 10/05/16 13:00 IMPRESSION: No lymphadenopathy or other evidence of metastatic disease within the abdomen or pelvis. Spleen size is within normal limits. D/ / 10/05/2016 14:08:18 Brent Velasquez MD / chavo Interpreting Provider: Brent Velasquez MD Head CT 10/05/16 13:00 IMPRESSION: 1. No acute intracranial abnormality. 2. No evidence of intracranial metastasis. D/ / Trevor Adame MD / Trevor Adame MD Interpreting Provider: Trevor Adame MD - VTE Documentation of Mechanical Device: Intermittent pneumatic compression device Consult Discharge Plan - Plan Instructions: Chronic Obstructive Pulmonary Disease (DC) Referrals: Katya Knox TECH WRITER [Advanced Practice Nurse] - 10/13/16 1:00 pm
--- NOTE | 2016-10-06 11:42 | IR Procedure Note ---
Date of procedure: 10/06/16 Consent Obtained: Written consent Timeout: Correct patient and procedure verified, Correct site verified, Time out performed, Skin prep completed Local anesthetic: Lidocaine 1% Indications: Lymphadenopathy Procedure Performed: CT biopsy Site/Technique: Right neck Results/Findings: 10 cores obtained, 2 good cores into flow. Estimated blood loss (cc): 2 Complications: None; Tolerated procedure well Post Procedure Treatment Plan: Monitoring in pts room
[2016-10-06] MEDS ORDERED: Nitroglycerin 0.4 MG TAB.SUBL SL PRN (12:35)
[2016-10-07] MEDS ORDERED: Fosaprepitant Dimeglumine 150 MG in 0.9 % Sodium Chloride 250 ML IV SCH
[2016-10-07] MEDS ORDERED: Prochlorperazine 10 MG/2 ML VIAL IV PRN
[2016-10-07] MEDS ORDERED: Famotidine 20 MG/2 ML VIAL IV PRN
[2016-10-07] MEDS ORDERED: 0.9 % Sodium Chloride w KCl 20 MEQ/1,000 ML MLS IVC SCH
[2016-10-07] MEDS ORDERED: SODIUM CHLORIDE 0.9% IV SCH ×2
[2016-10-07] MEDS ORDERED: Furosemide 20 MG/2 ML VIAL IVP PRN
[2016-10-07] MEDS ORDERED: Dexamethasone 10 MG/ML VIAL IV PRN
[2016-10-07] MEDS ORDERED: CISPLATIN IV SCH
[2016-10-07] MEDS ORDERED: MAGNESIUM SULFATE IV SCH
[2016-10-07] MEDS ORDERED: Dexamethasone 10 MG/ML VIAL IV ONE
[2016-10-07] MEDS ORDERED: ETOPOSIDE IV SCH
[2016-10-07] MEDS ORDERED: *HR* LORazepam 2 MG/ML VIAL IV PRN
[2016-10-07] MEDS: 0.9 % Sodium Chloride 1,000 ML IVC SCH ×6 (01:28→23:52)
[2016-10-07] MEDS: Ipratropium/Albuterol Neb 3 ML IH SCH ×3 (04:13→11:42)
[2016-10-07] MEDS: Levalbuterol Neb 1.25 MG/3 ML IH SCH ×5 (04:19→22:13)
[2016-10-07] MEDS: *HR* Heparin 5,000 UNIT/ML VIAL SQ SCH ×2 (05:18→17:19)
[2016-10-07] MEDS: Pantoprazole 40 MG VIAL IVP SCH (07:35)
[2016-10-07] MEDS: Aspirin Enteric Coated 81 MG Tablet PO SCH (07:35)
[2016-10-07] MEDS: Isosorbide MONOnitrate (24 HR) 60 MG TAB.ER.24H PO SCH (07:36)
[2016-10-07] MEDS: Nicotine 21 MG PATCH.TD24 TD SCH (07:36)
[2016-10-07] MEDS: Folic Acid 1 MG TABLET PO SCH (07:36)
[2016-10-07 08:25] LABS: Basophils % 0.3 %; Eosinophils % 0.4 %; Hematocrit 36.3 % (37.5-50.1); Hemoglobin 12.2 g/dL (12.9-16.9); Immature Granulocytes % 0.9 % (0-4); Lymphocytes # 1.6 K/mcL (0.6-4.6); Lymphocytes % 20.4 %; Mean Corpuscular HGB Conc 33.6 g/dL (31.6-35.5); Mean Corpuscular Hemoglobin 31.9 pg (28.0-33.3); Monocytes # 0.9 K/mcL (0.0-1.3); Monocytes % 11.1 %; Neutrophils # 5.3 K/mcL (1.6-8.9); Platelet Count 189 K/mcL (140-400); Red Blood Count 3.82 M/mcL (4.19-5.50); Red Cell Distribution Width 13.6 % (11.5-14.5); Segmented Neutrophils % 66.9 %
[2016-10-07 08:32] LABS: BUN/Creatinine Ratio 14 (6-26); Blood Urea Nitrogen 11 mg/dL (8-26); Calcium 9.1 mg/dL (8.6-10.8); Carbon Dioxide 20 mEq/L (19-29); Chloride 110 mEq/L (98-109); Glucose 80 mg/dL (70-99); Osmolality,Calculated 286 (280-300); Phosphorous 2.6 mg/dL (2.3-4.7); Potassium 3.8 mEq/L (3.5-4.5); eGFR For African Americans > 60 (> 60); eGFR For Non-African Americans > 60 (> 60)
[2016-10-07 08:47] LABS: Alanine Aminotransferase 18 Units/L (0-55); Albumin 3.4 g/dL (3.5-5.0); Albumin/Globulin Ratio 1.3 (1.1-2.2); Alkaline Phosphatase 68 Units/L (38-126); Aspartate Amino Transferase 26 Units/L (5-34); Globulin 2.7 g/dL (2.4-3.5); Total Protein 6.1 g/dL (6.0-8.3); Uric Acid 5.4 mg/dL (3.5-7.2)
[2016-10-07 08:49] LABS: Bilirubin,Total 0.5 mg/dL (0.2-1.2); Sodium 139 mEq/L (136-145)
--- NOTE | 2016-10-07 10:45 | Oncology Inp Progress Note ---
Date of Encounter: 10/07/16 Time of Encounter: 10:40 (1) Mediastinal lymphadenopathy Current Visit: Yes Status: Acute Assessment and plan: - I appreciate surgery input. Surgery recommended against excisional biopsy in view of high risk of complications, including . - Case discussed during thoracic tumor board. Recommendations to go ahead with CT guided biopsy ( obtain core sample). - If diagnostic consistent with DLBCL, will recommend to start CHOP as inpatient. I discussed with him the option of transfer to [place], specially if his pathology is consistent with a very aggressive NHL. -I expect that he will need cancer related therapy as inpatient ( agent will depend of pathology results ). - He is at high risk of TLS. Please start allopurinol 300 mg daily for prophylaxis. - He received a dose of solumedrol on 10/04. His labs are not suggestive of TLS. I would recommend to monitor LDH and CMP and add uric acid, Mg, and Phosphorus daily for now. - He is at high risk of respiratory compromise/complications, so please low threshold to transfer to the ICU if his respiratory status deteriorates. - If high grade lymphoma is confirmed, a IR guided Bone marrow biopsy will be needed prior to start treatment( for staging purposes). - Hold off on steroids for now. - CT head showed not findings suggestive of PUNCHBOARD STUFFER involvement. - Check CT abdomen/pelvis with IV contrast for staging purposes. (2) Lymphadenopathy Current Visit: Yes Status: Acute Assessment and plan: - I informed Mr. Shah and his brother of the preliminary results of his recent CT guided biopsy, consistent with small cell lung cancer. We discussed demographic information, and management of small cell lung cancer. -We discussed common side effects of chemotherapy, as well as schedule. I explained him that we will arrange for a nurse from the cancer Center to visit him at the hospital bedside to discuss in detail the chemotherapy agents ( cisplatin/Eto), schedule and side effects. - He will need to receive his first cycle of chemotherapy as inpatient ( planning to administrate 2 days instead of 2, to improve tolerance and decrease risk of grade 3-4 side effects. - Plan to start chemotherapy hopefully later this afternoon and day 2 of chemotherapy tomorrow . - He is at risk of TLS. Please increase allopurinol to 300 mg BID and monitor TLS labs ( calcium, uric acid, potassium, phosphorus, creatinine ) every 12 hours. If his develops TLS please transfer him to ICU for close monitoring, and check TLS labs every 8 hours. Oncology: Subj Interval history: Patient and son were informed that I was called by Dr. Triana, who was informed by our pathologist that the biopsy results are consistent with small cell lung cancer. Patient's son reports that he is confused. Patient is aware of having difficulty organizing his thoughts. He had a hard time remembering who was the current president of [place], what is really unusual for him. Reports being walking early today without complaints of dizziness or focal weakness. - Constitutional Vitals: Vital Signs Temp Pulse Resp BP Pulse Ox 10/07/16 07:43 18 98 10/07/16 06:54 97.5 F L 102 16 135/86 94 10/07/16 04:20 16 99 10/07/16 03:35 98.1 F 100 14 138/87 99 10/06/16 23:34 16 98 10/06/16 23:22 98.0 F 98 14 131/89 100 10/06/16 20:32 16 93 10/06/16 18:35 97.8 F 93 16 133/88 97 10/06/16 15:57 18 100 10/06/16 15:06 97.3 F L 86 16 116/85 94 10/06/16 13:05 97.7 F 85 17 116/74 96 10/06/16 12:35 97.2 F L 91 16 121/72 97 10/06/16 12:05 97.5 F L 86 17 118/76 98 Intake and Output 10/06/16 10/07/16 10/07/16 23:59 07:59 15:59 Intake Total 0 / 0 1000 / 1000 1000 / 1000 Output Total 0 / 0 500 / 500 Balance 0 / 0 500 / 500 1000 / 1000 Intake: IV Fluids 1000 / 1000 1000 / 1000 0.9 % Sodium Chloride 1, 1000 / 1000 1000 / 1000 000 ML @ 150 mls/hr IVC . Q6H40M [facility] Rx#:[id number] Oral 0 / 0 0 / 0 Output: Urine 0 / 0 500 / 500 Other: Meal NPO NPO Percent of Meal Consumed 0% Weight 67.812 kg Blood Glucose* 99 88 Patient Weight 10/07/16 23:59 Weight 67.812 kg - Head Head exam: Present: normal inspection - Neck Neck exam: Present: lymphadenopathy - Respiratory Respiratory exam: Present: CTAB - GI/Abdominal GI/Abdominal exam: Present: normal bowel sounds Oncology: Obj Data - Labs CBC & Chem 7: 10/07/16 08:12 10/07/16 08:12 Labs: Laboratory Results - last 24 hr 10/06/16 10/06/16 10/07/16 16:57 23:16 04:11 WBC RBC Hgb Hct MCV MCH MCHC RDW Plt Count MPV Immature Gran % Seg Neutrophils % Lymphocytes % Monocytes % Eosinophils % Basophils % Neutrophils # Lymphocytes # Monocytes # Eosinophils # Basophils # Sodium Potassium Chloride Carbon Dioxide BUN Creatinine Est GFR ( Amer) Est GFR (Non-Af Amer) BUN/Creatinine Ratio Glucose POC Glucose 88 99 H Calculated Osmolality Uric Acid Calcium Phosphorus Magnesium Total Bilirubin AST ALT Alkaline Phosphatase Lactate Dehydrogenase Serum Total Protein Albumin Globulin Albumin/Globulin Ratio Prealbumin 21.0 10/07/16 10/07/16 10/07/16 06:08 08:12 08:12 WBC 8.0 RBC 3.82 L Hgb 12.2 L Hct 36.3 L MCV 95.0 MCH 31.9 MCHC 33.6 RDW 13.6 Plt Count 189 MPV 9.0 L Immature Gran % 0.9 Seg Neutrophils % 66.9 Lymphocytes % 20.4 Monocytes % 11.1 Eosinophils % 0.4 Basophils % 0.3 Neutrophils # 5.3 Lymphocytes # 1.6 Monocytes # 0.9 Eosinophils # 0.0 Basophils # 0.0 Sodium 139 Potassium 3.8 Chloride 110 H Carbon Dioxide 20 BUN 11 Creatinine 0.78 Est GFR ( Amer) > 60 Est GFR (Non-Af Amer) > 60 BUN/Creatinine Ratio 14 Glucose 80 POC Glucose 88 Calculated Osmolality 286 Uric Acid 5.4 Calcium 9.1 Phosphorus 2.6 Magnesium 2.0 Total Bilirubin 0.5 AST 26 ALT 18 Alkaline Phosphatase 68 Lactate Dehydrogenase TNP Serum Total Protein 6.1 Albumin 3.4 L Globulin 2.7 Albumin/Globulin Ratio 1.3 Prealbumin 10/07/16 09:06 WBC RBC Hgb Hct MCV MCH MCHC RDW Plt Count MPV Immature Gran % Seg Neutrophils % Lymphocytes % Monocytes % Eosinophils % Basophils % Neutrophils # Lymphocytes # Monocytes # Eosinophils # Basophils # Sodium Potassium Chloride Carbon Dioxide BUN Creatinine Est GFR ( Amer) Est GFR (Non-Af Amer) BUN/Creatinine Ratio Glucose POC Glucose Calculated Osmolality Uric Acid Calcium Phosphorus Magnesium Total Bilirubin AST ALT Alkaline Phosphatase Lactate Dehydrogenase 501 H Serum Total Protein Albumin Globulin Albumin/Globulin Ratio Prealbumin - Impressions Impressions Lymph Node Biopsy CT 10/06/16 00:00 IMPRESSION: Successful CT guided core biopsy of lymphadenopathy in the right neck base.. D/ / Rogers Phillips MD / Rogers Phillips MD Interpreting Provider: Rogers Phillips MD - ABG Interpretation ABG results: PT/INR, D-dimer PT 13.4 Seconds (9.4-12.1) H 10/04/16 12:49 Consult Discharge Plan - Plan Instructions: Chronic Obstructive Pulmonary Disease (DC) Referrals: Katya Knox CNP [Advanced Practice Nurse] - 10/13/16 1:00 pm
[2016-10-07] MEDS ORDERED: Ondansetron 4 MG/2 ML VIAL IVP PRN (12:05)
--- NOTE | 2016-10-07 12:05 | Internal Med Progress Note ---
Date of Encounter: 10/07/16 Time of Encounter: 12:02 - Assessment and plan (1) Mediastinal lymphadenopathy Current Visit: Yes Status: Acute Assessment and plan: Oncology evaluation appreciated Biopsy results consistent with SCLC Pt to start chemotherapy later today continue IV fluids closely monitor for Tumor lysis syndrome (labs to be drawn q8h after initiation of chemo: LDH, uric acid, CMP, Mg, Phos) continue IV fluids O2 supplementation as needed will closely monitor respiratory status pain control added Fentany patch Speech therapy evaluation noted and started diet as per their recommendations (2) Small cell lung cancer in adult Current Visit: Yes Status: Acute Assessment and plan: Plan as listed above (3) CAD (coronary artery disease) Current Visit: Yes Status: Acute Assessment and plan: Resumed ASA and Plavix increased BB dose Qualifiers: Coronary Disease-Associated Artery/Lesion type: unspecified vessel or lesion type [place] vs. transplanted heart: unspecified whether [place] or transplanted heart Associated angina: with unspecified angina Qualified Code (s): I25.119 - Atherosclerotic heart disease of [place] coronary artery with unspecified angina pectoris (4) COPD (chronic obstructive pulmonary disease) Current Visit: Yes Status: Acute Assessment and plan: not in acute exacerbation continue bronchodilator support as needed smoking cessation counseling provided nicotine replacement therapy provided Qualifiers: COPD type: unspecified COPD Qualified Code(s): J44.9 - Chronic obstructive pulmonary disease, unspecified (5) Essential hypertension Current Visit: Yes Status: Acute Assessment and plan: BP within acceptable range will closely monitor restarting home medications as needed (6) DVT prophylaxis Current Visit: Yes Status: Acute Assessment and plan: Heparin SQ (7) Lactic acid acidosis Current Visit: Yes Status: Resolved - Subjective Interval history: Pt seen and examined with family present at bedside. Pt's lymph node biopsy results consistent with SCLC. Pt to be started on chemotherapy today. Pt noted to have difficulty swallowing, repeat speech therapy evaluation was requested. as per speech therapy, pt's swallowing is very behavior dependent. Initially he was able to take PO intake without any distress, however during repeat evaluation, he started spitting his food out. At this time patient is to be started on soft diet with thin liquids, however patient behaviour and mental status is to be taken into account. If patient is not willing to take any PO intake, he will be not forced to have a diet. Dietary consultation has been requested for possible TPN initiation as no speech therapy is available for daily exercises over the weekend. PEG tube conversation has been initiated with the patient, patient to think about PEG tube placement. He was also noted to have fluctuations with his mental status. As per nursing reports, his mental status waxes and wanes, however during my evaluation he was lucid and aware of his current management plan. - Constitutional Vitals: Temp Pulse Resp BP Pulse Ox 97.5 F L 102 18 135/86 97 10/07/16 06:54 10/07/16 06:54 10/07/16 11:42 10/07/16 06:54 10/07/16 11:42 General appearance: Present: cooperative, A&O X 3, pleasant, no acute distress, answers questions appropriately - Head Head exam: Present: atraumatic, normocephalic - Eye Eye exam: Present: conjuntiva pink, sclera anicteric - Respiratory Respiratory exam: Absent: respiratory distress, wheezes - Cardiovascular Cardiovascular exam: Present: RRR, +S1, +S2. Absent: diastolic murmur, gallop, rubs, systolic murmur - GI/Abdominal GI/Abdominal exam: Present: normal bowel sounds, soft, no peritoneal signs. Absent: distended, tenderness - Extremities Exam Extremities exam: Present: warm, radial pulses palpable and symmetrical. Absent : calf tenderness - Neurological Exam Neurological exam: Present: alert, oriented X3 - Psychiatric Psychiatric exam: Present: normal affect, normal mood Internal Medicine: Result - Labs CBC & Chem 7: 10/07/16 13:02 10/07/16 13:02 Labs: Short CBC 10/07/16 Range/Units 08:12 WBC 8.0 (4.3-11.1) K/mcL Hgb 12.2 L (12.9-16.9) g/dL Hct 36.3 L (37.5-50.1) % Plt Count 189 (140-400) K/mcL Neutrophils # 5.3 (1.6-8.9) K/mcL BMP 10/07/16 08:12 Sodium 139 Potassium 3.8 Chloride 110 H Carbon Dioxide 20 BUN 11 Creatinine 0.78 Glucose 80 Calcium 9.1 Liver Function 10/07/16 Range/Units 08:12 Total Bilirubin 0.5 (0.2-1.2) mg/dL AST 26 (5-34) Units/L ALT 18 (0-55) Units/L Alkaline Phosphatase 68 (38-126) Units/L Albumin 3.4 L (3.5-5.0) g/dL - ABG Interpretation ABG results: PT/INR, D-dimer PT 13.4 Seconds (9.4-12.1) H 10/04/16 12:49 - VTE Documentation of Mechanical Device: Intermittent pneumatic compression device Consult Discharge Plan - Plan Instructions: Chronic Obstructive Pulmonary Disease (DC) Referrals: Katya Knox CNP [Advanced Practice Nurse] - 10/13/16 1:00 pm
[2016-10-07] MEDS ORDERED: *HR* HYDROcodone/Acet 5/325 mg TABLET PO PRN (12:32)
[2016-10-07 13:22] LABS: Basophils % 0.3 %; Eosinophils % 0.1 %; Hematocrit 35.2 % (37.5-50.1); Hemoglobin 11.8 g/dL (12.9-16.9); Immature Granulocytes % 0.9 % (0-4); Lymphocytes # 1.2 K/mcL (0.6-4.6); Lymphocytes % 13.3 %; Mean Corpuscular HGB Conc 33.5 g/dL (31.6-35.5); Mean Corpuscular Hemoglobin 31.9 pg (28.0-33.3); Mean Corpuscular Volume 95.1 fL (83.0-100.0); Mean Platelet Volume 9.3 fL (9.4-12.4); Monocytes # 0.9 K/mcL (0.0-1.3); Monocytes % 10.1 %; Platelet Count 173 K/mcL (140-400); Red Cell Distribution Width 13.6 % (11.5-14.5); Segmented Neutrophils % 75.3 %
[2016-10-07 13:44] LABS: Alanine Aminotransferase 18 Units/L (0-55); Albumin 3.4 g/dL (3.5-5.0); Albumin/Globulin Ratio 1.4 (1.1-2.2); Alkaline Phosphatase 68 Units/L (38-126); Aspartate Amino Transferase 27 Units/L (5-34); BUN/Creatinine Ratio 14 (6-26); Bilirubin,Total 0.5 mg/dL (0.2-1.2); Blood Urea Nitrogen 11 mg/dL (8-26); Calcium 8.9 mg/dL (8.6-10.8); Carbon Dioxide 21 mEq/L (19-29); Chloride 110 mEq/L (98-109); Globulin 2.5 g/dL (2.4-3.5); Glucose 81 mg/dL (70-99); Magnesium 1.9 mg/dL (1.6-2.6); Osmolality,Calculated 286 (280-300); Potassium 3.7 mEq/L (3.5-4.5); Sodium 139 mEq/L (136-145); Total Protein 5.9 g/dL (6.0-8.3); eGFR For African Americans > 60 (> 60); eGFR For Non-African Americans > 60 (> 60)
[2016-10-07] MEDS ORDERED: D10% in Water 500 ML IVC PRN ×2 (14:31→14:37)
[2016-10-07] MEDS: *HR* FentaNYL PATCH 12 MCG PATCH TD SCH (16:40)
[2016-10-07] MEDS ORDERED: Clinimix E 5%-15% SOLUTION 2,000 ML with MVI, adult with vitamin K 10 ML IVC SCH (17:00)
--- NOTE | 2016-10-07 18:31 | Oncology Inp Progress Note ---
Date of Encounter: 10/07/16 Time of Encounter: 13:00 (1) Small cell lung cancer Current Visit: Yes Status: Acute Assessment and plan: Extensive stage small cell lung cancer Therapy intent palliative Patient and the family understand this is not curative but chemotherapy should offer good palliation with improvement of symptoms. It should also help him swallow and maintain nutrition better Chemotherapy regimen Repeated every 21 days 1. Cisplatin 60 mg/m day 1 ( increase to 80 mg/m from cycle 2) 2. Etoposide 60 mg/m day 1 and 2. (Increased dose to 80 mg/m from cycle 2 and also increase duration to 3 days with subsequent cycles) Neulasta support from cycle 2 if needed Complications addressed including irreversible hearing loss and renal insufficiency which is rare but can happen Other complications including neutropenia fatigue hair loss addressed. Tammie lung navigator did chemotherapy teaching 2. Confusion likely metabolic. May consider MRI with and without contrast if he is a candidate 3. Watch for tumor lysis syndrome. Continue allopurinol 300 mg daily 4. Wild anemia hemoglobin 11.8. His hemoglobin is normal at 13 on admission. Qualifiers: Qualified Code(s): C34.92 - Malignant neoplasm of unspecified part of left bronchus or lung Oncology: Subj Interval history: Extensive large lymphadenopathy in bilateral lower neck and right level III neck. Large mediastinal adenopathy encasing mainstem bronchus and causing respiratory discomfort. Left lung mass. CT abdomen and pelvis showed no major disease in the abdomen. Serum creatinine normal at 0.78. Biopsy showed small cell carcinoma and discussed with Dr. Billy metzger pathology. Official report pending Liver enzymes normal. Uric acid 5.4. Given that he is symptomatic we will proceed with treatment rather than wait He does have difficulty swallowing and maintaining nutrition. This should improve with chemotherapy He has decent family support and discussed with brother who used to be a EMT. He wants to proceed with chemotherapy and patient agrees CT head negative. Apparently he has some metal in the back and will confirm that. If necessary were daughter MRI brain with and without contrast that he has episodes of confusion today but was apparently alert yesterday - Constitutional Vitals: Vital Signs Temp Pulse Resp BP Pulse Ox 10/07/16 14:30 98.0 F 74 17 112/74 95 10/07/16 12:06 97.5 F L 109 18 118/67 97 10/07/16 11:42 18 97 10/07/16 07:43 18 98 08/18/17 06:54 97.5 F L 102 16 135/86 94 10/07/16 04:20 16 99 10/07/16 03:35 98.1 F 100 14 138/87 99 10/06/16 23:34 16 98 10/06/16 23:22 98.0 F 98 14 131/89 100 10/06/16 20:32 16 93 10/06/16 18:35 97.8 F 93 16 133/88 97 Intake and Output 10/07/16 10/07/16 10/07/16 07:59 15:59 23:59 Intake Total 1000 / 1000 1000 / 1000 Output Total 500 / 500 Balance 500 / 500 1000 / 1000 Intake: IV Fluids 1000 / 1000 1000 / 1000 0.9 % Sodium Chloride 1, 1000 / 1000 1000 / 1000 000 ML @ 150 mls/hr IVC . Q6H40M [facility] Rx#:[id number] Oral 0 / 0 0 / 0 Output: Urine 500 / 500 Other: Meal NPO Percent of Meal Consumed 0% Weight 67.812 kg Blood Glucose* 88 100 Patient Weight 10/07/16 23:59 Weight 67.812 kg Exam: GENERAL: Alert and oriented, well appearing. Mental Status: Affect appropriate for circumstances HEENT: Sclerae anicteric. No mucositis or thrush. No other oral or pharyngeal lesions or erythema. Skin: No rashes or petechiae. No evidence of skin malignancy Lymph nodes: Largest palpable lymph node and left supraclavicular area. Also significant lymph node right level III. Lungs: Air entry decreased significantly both bases left slightly worse than right with mild wheezing bilateral Cardiovascular: Regular rate and rhythm. No skipped beats Abdomen: Soft, nontender; no organomegaly or masses palpable. Extremities: No edema. No calf swelling or tenderness. No joint deformity. Neurologic: Alert, cranial nerves II-XII intact; normal gait; no focal weakness or sensory abnormalities Oncology: Obj Data - Labs CBC & Chem 7: 10/07/16 13:02 10/07/16 13:02 Labs: Laboratory Results - last 24 hr 10/06/16 10/06/16 10/07/16 16:57 23:16 04:11 WBC RBC Hgb Hct MCV MCH MCHC RDW Plt Count MPV Immature Gran % Seg Neutrophils % Lymphocytes % Monocytes % Eosinophils % Basophils % Neutrophils # Lymphocytes # Monocytes # Eosinophils # Basophils # Sodium Potassium Chloride Carbon Dioxide BUN Creatinine Est GFR ( Amer) Est GFR (Non-Af Amer) BUN/Creatinine Ratio Glucose POC Glucose 88 99 H Calculated Osmolality Uric Acid Calcium Phosphorus Magnesium Total Bilirubin AST ALT Alkaline Phosphatase Lactate Dehydrogenase Serum Total Protein Albumin Globulin Albumin/Globulin Ratio Prealbumin 21.0 10/07/16 10/07/16 10/07/16 06:08 08:12 08:12 WBC 8.0 RBC 3.82 L Hgb 12.2 L Hct 36.3 L MCV 95.0 MCH 31.9 MCHC 33.6 RDW 13.6 Plt Count 189 MPV 9.0 L Immature Gran % 0.9 Seg Neutrophils % 66.9 Lymphocytes % 20.4 Monocytes % 11.1 Eosinophils % 0.4 Basophils % 0.3 Neutrophils # 5.3 Lymphocytes # 1.6 Monocytes # 0.9 Eosinophils # 0.0 Basophils # 0.0 Sodium 139 Potassium 3.8 Chloride 110 H Carbon Dioxide 20 BUN 11 Creatinine 0.78 Est GFR ( Amer) > 60 Est GFR (Non-Af Amer) > 60 BUN/Creatinine Ratio 14 Glucose 80 POC Glucose 88 Calculated Osmolality 286 Uric Acid 5.4 Calcium 9.1 Phosphorus 2.6 Magnesium 2.0 Total Bilirubin 0.5 AST 26 ALT 18 Alkaline Phosphatase 68 Lactate Dehydrogenase TNP Serum Total Protein 6.1 Albumin 3.4 L Globulin 2.7 Albumin/Globulin Ratio 1.3 Prealbumin 10/07/16 10/07/16 10/07/16 09:06 12:15 13:02 WBC RBC Hgb Hct MCV MCH MCHC RDW Plt Count MPV Immature Gran % Seg Neutrophils % Lymphocytes % Monocytes % Eosinophils % Basophils % Neutrophils # Lymphocytes # Monocytes # Eosinophils # Basophils # Sodium 139 Potassium 3.7 Chloride 110 H Carbon Dioxide 21 BUN 11 Creatinine 0.78 Est GFR ( Amer) > 60 Est GFR (Non-Af Amer) > 60 BUN/Creatinine Ratio 14 Glucose 81 POC Glucose 100 H Calculated Osmolality 286 Uric Acid Calcium 8.9 Phosphorus Magnesium 1.9 Total Bilirubin 0.5 AST 27 ALT 18 Alkaline Phosphatase 68 Lactate Dehydrogenase 501 H Serum Total Protein 5.9 L Albumin 3.4 L Globulin 2.5 Albumin/Globulin Ratio 1.4 Prealbumin 10/07/16 13:02 WBC 9.2 RBC 3.70 L Hgb 11.8 L Hct 35.2 L MCV 95.1 MCH 31.9 MCHC 33.5 RDW 13.6 Plt Count 173 MPV 9.3 L Immature Gran % 0.9 Seg Neutrophils % 75.3 Lymphocytes % 13.3 Monocytes % 10.1 Eosinophils % 0.1 Basophils % 0.3 Neutrophils # 7.0 Lymphocytes # 1.2 Monocytes # 0.9 Eosinophils # 0.0 Basophils # 0.0 Sodium Potassium Chloride Carbon Dioxide BUN Creatinine Est GFR ( Amer) Est GFR (Non-Af Amer) BUN/Creatinine Ratio Glucose POC Glucose Calculated Osmolality Uric Acid Calcium Phosphorus Magnesium Total Bilirubin AST ALT Alkaline Phosphatase Lactate Dehydrogenase Serum Total Protein Albumin Globulin Albumin/Globulin Ratio Prealbumin - ABG Interpretation ABG results: PT/INR, D-dimer PT 13.4 Seconds (9.4-12.1) H 10/04/16 12:49 Consult Discharge Plan - Plan Instructions: Chronic Obstructive Pulmonary Disease (DC) Referrals: Katya Knox CNP [Advanced Practice Nurse] - 10/13/16 1:00 pm
[2016-10-08] MEDS ORDERED: Dexamethasone 10 MG/ML VIAL IV PRN
[2016-10-08] MEDS ORDERED: *HR* LORazepam 2 MG/ML VIAL IV PRN
[2016-10-08] MEDS ORDERED: Prochlorperazine 10 MG/2 ML VIAL IV PRN
[2016-10-08] MEDS ORDERED: Famotidine 20 MG/2 ML VIAL IV PRN
[2016-10-08] MEDS ORDERED: 0.9 % Sodium Chloride 500 ML IVC SCH
[2016-10-08 03:19] LABS: Basophils % 0.2 %; Hematocrit 30.6 % (37.5-50.1); Hemoglobin 10.4 g/dL (12.9-16.9); Immature Granulocytes % 1.1 % (0-4); Lymphocytes # 0.8 K/mcL (0.6-4.6); Lymphocytes % 12.2 %; Mean Corpuscular Hemoglobin 32.3 pg (28.0-33.3); Mean Platelet Volume 9.3 fL (9.4-12.4); Monocytes # 0.3 K/mcL (0.0-1.3); Monocytes % 4.9 %; Platelet Count 160 K/mcL (140-400); Red Blood Count 3.22 M/mcL (4.19-5.50); Red Cell Distribution Width 13.6 % (11.5-14.5); Segmented Neutrophils % 81.6 %
[2016-10-08 03:32] LABS: Magnesium 2.4 mg/dL (1.6-2.6); Phosphorous 2.7 mg/dL (2.3-4.7)
[2016-10-08 03:35] LABS: Alanine Aminotransferase 18 Units/L (0-55); Albumin 2.9 g/dL (3.5-5.0); Albumin/Globulin Ratio 1.3 (1.1-2.2); Alkaline Phosphatase 59 Units/L (38-126); Aspartate Amino Transferase 23 Units/L (5-34); BUN/Creatinine Ratio 19 (6-26); Bilirubin,Total 0.3 mg/dL (0.2-1.2); Blood Urea Nitrogen 13 mg/dL (8-26); Carbon Dioxide 18 mEq/L (19-29); Chloride 114 mEq/L (98-109); Globulin 2.3 g/dL (2.4-3.5); Glucose 130 mg/dL (70-99); Lactate Dehydrogenase 454 Units/L (159-327); Osmolality,Calculated 290 (280-300); Potassium 3.6 mEq/L (3.5-4.5); Sodium 139 mEq/L (136-145); Total Protein 5.2 g/dL (6.0-8.3); Uric Acid 5.3 mg/dL (3.5-7.2); eGFR For African Americans > 60 (> 60); eGFR For Non-African Americans > 60 (> 60)
[2016-10-08] MEDS: Levalbuterol Neb 1.25 MG/3 ML IH SCH ×4 (03:37→21:47)
[2016-10-08] MEDS: *HR* Heparin 5,000 UNIT/ML VIAL SQ SCH ×2 (05:00→18:34)
[2016-10-08] MEDS: 0.9 % Sodium Chloride 1,000 ML IVC SCH ×3 (06:33→20:35)
[2016-10-08] MEDS: Nicotine 21 MG PATCH.TD24 TD SCH (09:07)
[2016-10-08] MEDS: Aspirin Enteric Coated 81 MG Tablet PO SCH (09:08)
[2016-10-08] MEDS: Isosorbide MONOnitrate (24 HR) 60 MG TAB.ER.24H PO SCH (09:08)
[2016-10-08] MEDS: Folic Acid 1 MG TABLET PO SCH (09:09)
[2016-10-08] MEDS: Pantoprazole 40 MG VIAL IVP SCH (09:09)
[2016-10-08 09:21] LABS: % Iron Saturation 66 % (20-55); Iron 147 mcg/dL (65-175); Magnesium 2.5 mg/dL (1.6-2.6); Phosphorous 2.6 mg/dL (2.3-4.7); Transferrin 160 mg/dL (174-364)
--- NOTE | 2016-10-08 09:30 | Oncology Inp Progress Note ---
Date of Encounter: 10/08/16 Time of Encounter: 09:26 (1) Small cell lung cancer in adult Current Visit: Yes Status: Acute Assessment and plan: Currently on C1D1 of cisplatin 60 mg/m2 and etoposide 60 mg/2/ Planning to complete only 2 ( instead of 3 days) for cycle 1 and increase cisplatin and Etoposide to 80 mg /m2 since cycle 2 to decrease the risk of severe toxicity. - He reports today worsening dysphagia, but other symptoms ( chest pressure, shortness of breath) seem to be improving or at least stable ( he remains in O2 NC 2 L saturation above 90 percent). - He is being monitored closely for TLS. I would continue checking TLS labs ( Phosph, Ca, Creatinine, LDH, uric acid) every 8 hours and change to BID in AM if there are not significant abnormalities. - Labs reviewed. Ok to proceed today with C1D2 of chemotherapy with cisplatin 60 mg/m2 IV and Etoposide 60 mg/m2 IV. Discussed with nurse at bedside. Chemotherapy planned for later during the day ( 24 hours after administration of day 1 chemo). (2) Dysphagia Current Visit: Yes Status: Acute Assessment and plan: Reports worsening dysphagia, but able to tolerate dinner well last night. Seen by Speech with evaluation noticing inconsistent swallow, but not issues with aspiration or penetration with PO intake. Speech recommended thin liquids advancing to regular soft texture. Planning to follow up on Monday. Will follow up clinically for now. Qualifiers: Dysphagia type: unspecified Qualified Code(s): R13.10 - Dysphagia, unspecified Oncology: Subj Interval history: CC: chest pressure, dysphagia Mr. Shah reports worsening dysphagia, in despite of improvement of other symptoms. He reports difficulty swallowing, having to spit his own saliva, however he reports that yesterday he was able to tolerated dinner well, without coughing while or after eating. Reports improved chest pressure/pain. Reports improved shortness of breath. He was sitting down on his bed, looking comfortable. He feels less confused too. His nurse reports that he was well oriented earlier today. He seems to be more engaged in conversations today. No hallucinations. Reports making urine and denies constipation. Denies nausea with yesterday's chemotherapy. PMH: - Extensive disease SCLC - CAD s/p PCI procedure with stent placement years ago Social history: Family very supportive. 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 His 2 sisters were here too yesterday. He is and does not have a close relationship with his only son. ROS: Respiratory: improved SOB Cardia: history of CAD, but not symptoms suggestive of recurrent NH. GI: worsening dysphagia - Constitutional Vitals: Vital Signs Temp Pulse Resp BP Pulse Ox 10/08/16 07:26 95 16 131/88 98 10/08/16 04:37 97.6 F 99 14 105/72 99 10/08/16 04:32 99 10/08/16 03:37 16 93 10/08/16 00:40 97.6 F 95 16 122/69 95 10/07/16 22:13 16 92 10/07/16 14:30 98.0 F 74 17 112/74 95 10/07/16 12:06 97.5 F L 109 18 118/67 97 10/07/16 11:42 18 97 Intake and Output 10/07/16 10/08/16 10/08/16 23:59 07:59 15:59 Intake Total 2869.5 / 2869.5 1120 / 1120 638 / 638 Output Total 0 / 0 Balance 2869.5 / 2869.5 1120 / 1120 638 / 638 Intake: IV Fluids 2869.5 / 2869.5 1000 / 1000 638 / 638 CISplatin 110 MG 1114 / 1114 Magnesium Sulfate 2 GM In 0.9 % Sodium Chloride 1, 000 ML @ 557 mls/hr IV ONCE [facility] Rx#:[id number] Etoposide 110 mg In 0.9 % 505.5 / 505.5 Sodium Chloride 500 ML @ 505.5 mls/hr IV ONCE [facility] Rx#:[id number] Emend 150 mg In 0.9 % 250 / 250 Sodium Chloride 250 ML @ 500 mls/hr IV ONCE [facility] Rx #:[id number] 0.9 % Sodium Chloride 1, 1000 / 1000 388 / 388 000 ML @ 150 mls/hr IVC . Q6H40M [facility] Rx#:[id number] KCl 20 mEq in 0.9% Sodium 1000 / 1000 Chloride 20 meq In 1,000 ml @ 500 mls/hr IVC ONCE [facility] Rx#:[id number] Intralipid 20% 250 ML @ 250 / 250 21 mls/hr IVPB DAILY@1700 [facility] Rx#:[id number] Oral 120 / 120 0 / 0 Output: Urine 0 / 0 Other: Meal Breakfast Percent of Meal Consumed 0% # Voids 1 Blood Glucose* 146 148 - Head Head exam: Present: normal inspection - Eye Eye exam: Present: EOMI - ENT ENT exam: Present: normal exam - Respiratory Respiratory exam: Present: CTAB - Cardiovascular Cardiovascular exam: Present: RRR. Absent: JVD - GI/Abdominal GI/Abdominal exam: Present: normal bowel sounds - Extremities Exam Extremities exam: Present: normal inspection - Neurological Exam Neurological exam: Present: alert, CN II-XII intact, oriented X3 - Psychiatric Psychiatric exam: Present: normal affect. Absent: anxious Additional comments: He seems less confused today, oriented x 3. He seems more engaged today discussing his own symptoms, and being able to organize his thought process. No focal neurologic deficits or abnormalities during the exam. Oncology: Obj Data - Labs CBC & Chem 7: 10/08/16 03:10 10/08/16 03:10 Labs: Laboratory Results - last 24 hr 10/06/16 10/07/16 10/07/16 16:57 12:15 13:02 WBC RBC Hgb Hct MCV MCH MCHC RDW Plt Count MPV Immature Gran % Seg Neutrophils % Lymphocytes % Monocytes % Eosinophils % Basophils % Neutrophils # Lymphocytes # Monocytes # Eosinophils # Basophils # Sodium 139 Potassium 3.7 Chloride 110 H Carbon Dioxide 21 BUN 11 Creatinine 0.78 Est GFR ( Amer) > 60 Est GFR (Non-Af Amer) > 60 BUN/Creatinine Ratio 14 Glucose 81 POC Glucose 88 100 H Calculated Osmolality 286 Uric Acid Calcium 8.9 Phosphorus Magnesium 1.9 Iron % Saturation Transferrin Total Bilirubin 0.5 AST 27 ALT 18 Alkaline Phosphatase 68 Lactate Dehydrogenase Serum Total Protein 5.9 L Albumin 3.4 L Globulin 2.5 Albumin/Globulin Ratio 1.4 Triglycerides 10/07/16 10/08/16 10/08/16 13:02 03:10 03:10 WBC 9.2 6.1 RBC 3.70 L 3.22 L Hgb 11.8 L 10.4 L Hct 35.2 L 30.6 L MCV 95.1 95.0 MCH 31.9 32.3 MCHC 33.5 34.0 RDW 13.6 13.6 Plt Count 173 160 MPV 9.3 L 9.3 L Immature Gran % 0.9 1.1 Seg Neutrophils % 75.3 81.6 Lymphocytes % 13.3 12.2 Monocytes % 10.1 4.9 Eosinophils % 0.1 0.0 Basophils % 0.3 0.2 Neutrophils # 7.0 5.0 Lymphocytes # 1.2 0.8 Monocytes # 0.9 0.3 Eosinophils # 0.0 0.0 Basophils # 0.0 0.0 Sodium Potassium Chloride Carbon Dioxide BUN Creatinine Est GFR ( Amer) Est GFR (Non-Af Amer) BUN/Creatinine Ratio Glucose POC Glucose Calculated Osmolality Uric Acid Calcium Phosphorus 2.7 Magnesium 2.4 Iron % Saturation Transferrin Total Bilirubin AST ALT Alkaline Phosphatase Lactate Dehydrogenase Serum Total Protein Albumin Globulin Albumin/Globulin Ratio Triglycerides 10/08/16 10/08/16 10/08/16 03:10 03:10 04:31 WBC RBC Hgb Hct MCV MCH MCHC RDW Plt Count MPV Immature Gran % Seg Neutrophils % Lymphocytes % Monocytes % Eosinophils % Basophils % Neutrophils # Lymphocytes # Monocytes # Eosinophils # Basophils # Sodium 139 Potassium 3.6 Chloride 114 H Carbon Dioxide 18 L BUN 13 Creatinine 0.69 L Est GFR ( Amer) > 60 Est GFR (Non-Af Amer) > 60 BUN/Creatinine Ratio 19 Glucose 130 H POC Glucose 146 H Calculated Osmolality 290 Uric Acid 5.3 Calcium 8.0 L Phosphorus Magnesium Iron % Saturation Transferrin Total Bilirubin 0.3 AST 23 ALT 18 Alkaline Phosphatase 59 Lactate Dehydrogenase 454 H Serum Total Protein 5.2 L Albumin 2.9 L Globulin 2.3 L Albumin/Globulin Ratio 1.3 Triglycerides 90 10/08/16 10/08/16 10/08/16 07:57 08:57 08:57 WBC RBC Hgb Hct MCV MCH MCHC RDW Plt Count MPV Immature Gran % Seg Neutrophils % Lymphocytes % Monocytes % Eosinophils % Basophils % Neutrophils # Lymphocytes # Monocytes # Eosinophils # Basophils # Sodium Potassium Chloride Carbon Dioxide BUN Creatinine Est GFR ( Amer) Est GFR (Non-Af Amer) BUN/Creatinine Ratio Glucose POC Glucose 148 H Calculated Osmolality Uric Acid Calcium Phosphorus 2.6 Magnesium 2.5 Iron 147 % Saturation 66 H Transferrin 160 L Total Bilirubin AST ALT Alkaline Phosphatase Lactate Dehydrogenase Serum Total Protein Albumin Globulin Albumin/Globulin Ratio Triglycerides - ABG Interpretation ABG results: PT/INR, D-dimer PT 13.4 Seconds (9.4-12.1) H 10/04/16 12:49 Consult Discharge Plan - Plan Instructions: Chronic Obstructive Pulmonary Disease (DC) Referrals: Katya Knox CNP [Advanced Practice Nurse] - 10/13/16 1:00 pm
[2016-10-08 09:40] LABS: Ferritin 655 ng/ml (22-275)
--- NOTE | 2016-10-08 12:59 | Internal Med Progress Note ---
Date of Encounter: 10/08/16 Time of Encounter: 12:57 - Assessment and plan (1) Mediastinal lymphadenopathy Current Visit: Yes Status: Acute Assessment and plan: Oncology evaluation appreciated Biopsy results consistent with SCLC Pt started chemotherapy yesterday (10/07/16) continue IV fluids closely monitor for Tumor lysis syndrome (labs to be drawn q8h after initiation of chemo: LDH, uric acid, CMP, Mg, Phos) continue IV fluids O2 supplementation as needed will closely monitor respiratory status pain control Fentany patch Speech therapy evaluation noted and started diet as per their recommendations TPN started due to decrease PO intake. (2) Small cell lung cancer in adult Current Visit: Yes Status: Acute Assessment and plan: Plan as listed above (3) CAD (coronary artery disease) Current Visit: Yes Status: Acute Assessment and plan: Resumed ASA and Plavix increased BB dose Qualifiers: Coronary Disease-Associated Artery/Lesion type: unspecified vessel or lesion type [place] vs. transplanted heart: unspecified whether [place] or transplanted heart Associated angina: with unspecified angina Qualified Code (s): I25.119 - Atherosclerotic heart disease of [place] coronary artery with unspecified angina pectoris (4) COPD (chronic obstructive pulmonary disease) Current Visit: Yes Status: Acute Assessment and plan: not in acute exacerbation continue bronchodilator support as needed smoking cessation counseling provided nicotine replacement therapy provided Qualifiers: COPD type: unspecified COPD Qualified Code(s): J44.9 - Chronic obstructive pulmonary disease, unspecified (5) Essential hypertension Current Visit: Yes Status: Acute Assessment and plan: BP within acceptable range will closely monitor restarting home medications as needed (6) DVT prophylaxis Current Visit: Yes Status: Acute Assessment and plan: Heparin SQ (7) Lactic acid acidosis Current Visit: Yes Status: Resolved - Subjective Interval history: Pt seen and examined with family present at bedside. Pt's lymph node biopsy results consistent with SCLC. Pt to be started on chemotherapy yesterday (). Pt was noted to be agitated and pulled out PICC line yesterday due to which bedside sitter was placed. Pt is currently sitting comportably in bed, AAO x 3 and calm and conversating without any distress. His PICC line was replaced yesterday evening. Still not tolerating any PO intake, more so refusing to eat. will continue TPN support at this time. - Constitutional Vitals: Temp Pulse Resp BP Pulse Ox 97.4 F L 85 16 95/65 95 10/08/16 11:56 10/08/16 11:56 10/08/16 11:56 10/08/16 11:56 10/08/16 11:56 General appearance: Present: cooperative, A&O X 3, pleasant, no acute distress, answers questions appropriately - Head Head exam: Present: atraumatic, normocephalic - Eye Eye exam: Present: conjuntiva pink, sclera anicteric - Respiratory Respiratory exam: Present: CTAB. Absent: accessory muscle use, rales, rhonchi, wheezes - Cardiovascular Cardiovascular exam: Present: RRR, +S1, +S2. Absent: diastolic murmur, gallop, rubs, systolic murmur - GI/Abdominal GI/Abdominal exam: Present: normal bowel sounds, soft, no peritoneal signs. Absent: distended, tenderness - Extremities Exam Extremities exam: Present: warm, radial pulses palpable and symmetrical. Absent : calf tenderness, pedal edema Additional comments: RUE PICC line - Neurological Exam Neurological exam: Present: alert, oriented X3 - Psychiatric Psychiatric exam: Present: normal affect, normal mood Internal Medicine: Result - Labs CBC & Chem 7: 10/08/16 03:10 10/08/16 03:10 Labs: Short CBC 10/07/16 10/08/16 Range/Units 13:02 03:10 WBC 9.2 6.1 (4.3-11.1) K/mcL Hgb 11.8 L 10.4 L (12.9-16.9) g/dL Hct 35.2 L 30.6 L (37.5-50.1) % Plt Count 173 160 (140-400) K/mcL Neutrophils # 7.0 5.0 (1.6-8.9) K/mcL BMP 10/07/16 10/08/16 13:02 03:10 Sodium 139 139 Potassium 3.7 3.6 Chloride 110 H 114 H Carbon Dioxide 21 18 L BUN 11 13 Creatinine 0.78 0.69 L Glucose 81 130 H Calcium 8.9 8.0 L Liver Function 10/07/16 10/08/16 Range/Units 13:02 03:10 Total Bilirubin 0.5 0.3 (0.2-1.2) mg/dL AST 27 23 (5-34) Units/L ALT 18 18 (0-55) Units/L Alkaline Phosphatase 68 59 (38-126) Units/L Albumin 3.4 L 2.9 L (3.5-5.0) g/dL - ABG Interpretation ABG results: PT/INR, D-dimer PT 13.4 Seconds (9.4-12.1) H 10/04/16 12:49 - Impressions Impressions Abdomen/Pelvis CT 10/05/16 13:00 IMPRESSION: No lymphadenopathy or other evidence of metastatic disease within the abdomen or pelvis. Spleen size is within normal limits. D/ / 10/05/2016 14:08:18 Brent Velasquez MD / chavo Interpreting Provider: Brent Velasquez MD - VTE Documentation of Mechanical Device: Intermittent pneumatic compression device Consult Discharge Plan - Plan Instructions: Chronic Obstructive Pulmonary Disease (DC) Referrals: Katya Knox CNP [Advanced Practice Nurse] - 10/13/16 1:00 pm
[2016-10-08 15:05] LABS: Alanine Aminotransferase 17 Units/L (0-55); Albumin/Globulin Ratio 1.2 (1.1-2.2); Alkaline Phosphatase 57 Units/L (38-126); Aspartate Amino Transferase 22 Units/L (5-34); BUN/Creatinine Ratio 22 (6-26); Bilirubin,Total 0.3 mg/dL (0.2-1.2); Blood Urea Nitrogen 16 mg/dL (8-26); Carbon Dioxide 15 mEq/L (19-29); Chloride 115 mEq/L (98-109); Globulin 2.6 g/dL (2.4-3.5); Glucose 137 mg/dL (70-99); Magnesium 2.4 mg/dL (1.6-2.6); Osmolality,Calculated 291 (280-300); Phosphorous 2.8 mg/dL (2.3-4.7); Potassium 3.6 mEq/L (3.5-4.5); Sodium 139 mEq/L (136-145); Total Protein 5.6 g/dL (6.0-8.3); Uric Acid 4.8 mg/dL (3.5-7.2); eGFR For African Americans > 60 (> 60); eGFR For Non-African Americans > 60 (> 60)
[2016-10-08 15:06] LABS: Lactate Dehydrogenase 486 Units/L (159-327)
[2016-10-08] MEDS ORDERED: Clinimix E 5%-15% SOLUTION 2,000 ML with MVI, adult with vitamin K 10 ML IVC SCH (17:00)
[2016-10-08] MEDS ORDERED: Dexamethasone 10 MG/ML VIAL IV ONE (20:30)
[2016-10-08 20:37] LABS: Alanine Aminotransferase 18 Units/L (0-55); Albumin 3.2 g/dL (3.5-5.0); Albumin/Globulin Ratio 1.2 (1.1-2.2); Alkaline Phosphatase 60 Units/L (38-126); Aspartate Amino Transferase 24 Units/L (5-34); BUN/Creatinine Ratio 23 (6-26); Bilirubin,Total 0.4 mg/dL (0.2-1.2); Blood Urea Nitrogen 18 mg/dL (8-26); Calcium 8.4 mg/dL (8.6-10.8); Carbon Dioxide 16 mEq/L (19-29); Chloride 114 mEq/L (98-109); Globulin 2.6 g/dL (2.4-3.5); Glucose 139 mg/dL (70-99); Magnesium 2.3 mg/dL (1.6-2.6); Osmolality,Calculated 292 (280-300); Phosphorous 2.7 mg/dL (2.3-4.7); Potassium 3.7 mEq/L (3.5-4.5); Sodium 139 mEq/L (136-145); Total Protein 5.8 g/dL (6.0-8.3); Uric Acid 4.8 mg/dL (3.5-7.2); eGFR For African Americans > 60 (> 60); eGFR For Non-African Americans > 60 (> 60)
[2016-10-08 20:38] LABS: Lactate Dehydrogenase 532 Units/L (159-327)
[2016-10-08] MEDS ORDERED: ETOPOSIDE IV ONE (21:00)
[2016-10-08] MEDS ORDERED: SODIUM CHLORIDE 0.9% IV ONE (21:00)
[2016-10-09] MEDS: Levalbuterol Neb 1.25 MG/3 ML IH SCH ×5 (03:34→22:22)
[2016-10-09 04:06] LABS: Hematocrit 33.1 % (37.5-50.1); Immature Granulocytes % 0.7 % (0-4); Lymphocytes # 0.5 K/mcL (0.6-4.6); Lymphocytes % 4.6 %; Mean Corpuscular HGB Conc 36.6 g/dL (31.6-35.5); Mean Corpuscular Hemoglobin 34.9 pg (28.0-33.3); Mean Corpuscular Volume 95.4 fL (83.0-100.0); Mean Platelet Volume 9.7 fL (9.4-12.4); Monocytes # 0.6 K/mcL (0.0-1.3); Monocytes % 5.4 %; Neutrophils # 9.6 K/mcL (1.6-8.9); Platelet Count 197 K/mcL (140-400); Red Blood Count 3.47 M/mcL (4.19-5.50); Red Cell Distribution Width 13.8 % (11.5-14.5); Segmented Neutrophils % 89.3 %
[2016-10-09 04:18] LABS: Hemoglobin 12.1 g/dL (12.9-16.9)
[2016-10-09 05:22] LABS: Alanine Aminotransferase 20 Units/L (0-55); Albumin 3.3 g/dL (3.5-5.0); Albumin/Globulin Ratio 1.1 (1.1-2.2); Alkaline Phosphatase 61 Units/L (38-126); Aspartate Amino Transferase 26 Units/L (5-34); BUN/Creatinine Ratio 24 (6-26); Bilirubin,Total < 0.3 mg/dL (0.2-1.2); Blood Urea Nitrogen 18 mg/dL (8-26); Calcium 8.1 mg/dL (8.6-10.8); Carbon Dioxide 16 mEq/L (19-29); Chloride 112 mEq/L (98-109); Glucose 146 mg/dL (70-99); Magnesium 2.3 mg/dL (1.6-2.6); Osmolality,Calculated 291 (280-300); Potassium 3.9 mEq/L (3.5-4.5); Sodium 138 mEq/L (136-145); Total Protein 6.3 g/dL (6.0-8.3); Uric Acid 4.5 mg/dL (3.5-7.2); eGFR For African Americans > 60 (> 60); eGFR For Non-African Americans > 60 (> 60)
[2016-10-09 05:23] LABS: Lactate Dehydrogenase 577 Units/L (159-327)
[2016-10-09] MEDS: *HR* Heparin 5,000 UNIT/ML VIAL SQ SCH ×2 (05:39→16:54)
[2016-10-09] MEDS: Isosorbide MONOnitrate (24 HR) 60 MG TAB.ER.24H PO SCH (07:45)
[2016-10-09] MEDS: Folic Acid 1 MG TABLET PO SCH (07:45)
[2016-10-09] MEDS: Aspirin Enteric Coated 81 MG Tablet PO SCH (07:46)
[2016-10-09] MEDS: Nicotine 21 MG PATCH.TD24 TD SCH (07:46)
[2016-10-09] MEDS ORDERED: 0.9 % Sodium Chloride 1,000 ML IVC SCH (07:48)
[2016-10-09] MEDS: Pantoprazole 40 MG VIAL IVP SCH (07:48)
--- NOTE | 2016-10-09 09:38 | Oncology Inp Progress Note ---
Date of Encounter: 10/09/16 Time of Encounter: 09:34 (1) Small cell lung cancer in adult Current Visit: Yes Status: Acute Assessment and plan: Currently on C1D3 of cisplatin 60 mg/m2 and etoposide 60 mg/m2. Unfortunately, approximately he received only 400 cc of cisplatin( 80 % of the planned dose) after he pulled out his IV line while chemotherapy was being administered; therefore the approximate total dose of etoposide received would correspond to 100 mg of Etoposide or 80 percent of the planned dose). The resolution of his chest pain/pressure, dysphagia and respiratory distress/shortness of breath are clinically findings suggestive of tumor response, therefore I will continue the previous plan of 2 days of chemotherapy with cycle 1 ( and 3 days starting with cycle #3 ) and to increase both cisplatin and etoposide to 80 mg/m2 starting with cycle #2. - His labs do not show evidence of TLS, but he has developed generalized edema. I'd suggest to decrease his IVF to 75 cc/h. Ok to check TLS labs every 12 hours. If labs do not show evidence of TLS in AM ( and renal function remains normal), may consider to start a low dose of lasix. (2) Dysphagia Current Visit: Yes Status: Acute Assessment and plan: Reports improvement. No complaints during breakfast today. Seen by Speech during current hospitalization, inconsistent swallow was noticed , but not issues with aspiration or penetration with PO intake. Speech recommended thin liquids advancing to regular soft texture. Planning to follow up on tomorrow . Will continue to follow up clinically for now. Continue TPN for nutritional support. Qualifiers: Dysphagia type: unspecified Qualified Code(s): R13.10 - Dysphagia, unspecified (3) Encephalopathy Current Visit: Yes Status: Acute Assessment and plan: His mental status is fluctuating. yesterday had a better day. Currently with 1: 1 due to attempts to remove IV line ( and successful attempt while chemo was being administered). More likely a combination of several factors: delirium of acute illness, hospitalization, medications, metabolic. Continue supportive management, re directioning. - May consider low dose of trazodone at night. Oncology: Subj Interval history: Chief complaint: tiredness. Mata looks more confused today, at times talking inappropriately. At this time requiring one to one due to attempts to remove IV line. Complaints of feeling tired, feeling sick. He looks volume overload, but reports that his breathing has improved. Denies recurrent chest pain ( resolved since yesterday). Tolerated " a few bites " for breakfast. I was informed by patient's nurse that yesterday he pulled out his IV line while chemo was being administered, so approximately 90-100 cc of chemotherapy got wasted, but he received the rest of the infusion. ROS: - Cardiovascular : negative for chest pain. Positive for generalized edema - Constitutional Vitals: Vital Signs Temp Pulse Resp BP Pulse Ox 10/09/16 07:42 97.6 F 99 18 144/93 97 10/09/16 04:10 16 92 10/09/16 03:35 92 10/09/16 00:57 97.2 F L 99 16 150/90 92 10/08/16 21:47 17 93 10/08/16 21:23 97.5 F L 90 16 125/84 96 10/08/16 19:00 97.5 F L 90 17 125/84 93 10/08/16 15:56 98.1 F 75 18 96/67 96 10/08/16 15:19 16 96 Intake and Output 10/08/16 10/09/16 10/09/16 23:59 07:59 15:59 Intake Total 2871 / 2871 1755 / 1755 0 / 0 Output Total 0 / 0 Balance 2871 / 2871 1755 / 1755 0 / 0 Intake: IV Fluids 2751 / 2751 1755 / 1755 Etoposide 110 mg In 0.9 % 505 / 505 Sodium Chloride 500 ML @ 505.5 mls/hr IV ONCE ONE Rx#:[id number] 0.9 % Sodium Chloride 1, 1538 / 1538 1000 / 1000 000 ML @ 150 mls/hr IVC . Q6H40M [facility] Rx#:[id number] Clinimix E 5%-15% 1213 / 1213 SOLUTION 2,000 ML @ 50 mls/hr IVC .Q24H [facility] with M.v.i. Adult 10 ml Rx#: [id number] Intralipid 20% 250 ML @ 250 / 250 21 mls/hr IVPB DAILY@1700 [facility] Rx#:[id number] Oral 120 / 120 0 / 0 0 / 0 Output: Urine 0 / 0 Other: Meal Dinner Breakfast Percent of Meal Consumed 10% 5% # Voids 1 1 # Bowel Movements 1 Blood Glucose* 159 174 - Respiratory Respiratory exam: Present: rhonchi. Absent: rales, respiratory distress - Cardiovascular Cardiovascular exam: Present: RRR Additional comments: Generalized edema. - Extremities Exam Extremities exam: Present: pedal edema - Neurological Exam Neurological exam: Present: altered Oncology: Obj Data - Labs CBC & Chem 7: 10/09/16 03:50 10/09/16 04:46 Labs: Laboratory Results - last 24 hr 10/08/16 10/08/16 10/08/16 16:02 20:05 21:20 WBC RBC Hgb Hct MCV MCH MCHC RDW Plt Count MPV Immature Gran % Seg Neutrophils % Lymphocytes % Monocytes % Eosinophils % Basophils % Neutrophils # Lymphocytes # Monocytes # Eosinophils # Basophils # Sodium 139 Potassium 3.7 Chloride 114 H Carbon Dioxide 16 L BUN 18 Creatinine 0.77 Est GFR ( Amer) > 60 Est GFR (Non-Af Amer) > 60 BUN/Creatinine Ratio 23 Glucose 139 H POC Glucose 152 H 159 H Calculated Osmolality 292 Uric Acid 4.8 Calcium 8.4 L Phosphorus 2.7 Magnesium 2.3 Total Bilirubin 0.4 AST 24 ALT 18 Alkaline Phosphatase 60 Lactate Dehydrogenase 532 H Serum Total Protein 5.8 L Albumin 3.2 L Globulin 2.6 Albumin/Globulin Ratio 1.2 Specimen Rejected 10/09/16 10/09/16 10/09/16 03:50 03:50 04:46 WBC 10.8 D RBC 3.47 L Hgb 12.1 L D Hct 33.1 L MCV 95.4 MCH 34.9 H MCHC 36.6 H RDW 13.8 Plt Count 197 MPV 9.7 Immature Gran % 0.7 Seg Neutrophils % 89.3 Lymphocytes % 4.6 Monocytes % 5.4 Eosinophils % 0.0 Basophils % 0.0 Neutrophils # 9.6 H Lymphocytes # 0.5 L Monocytes # 0.6 Eosinophils # 0.0 Basophils # 0.0 Sodium 138 Potassium 3.9 Chloride 112 H Carbon Dioxide 16 L BUN 18 Creatinine 0.76 Est GFR ( Amer) > 60 Est GFR (Non-Af Amer) > 60 BUN/Creatinine Ratio 24 Glucose 146 H POC Glucose Calculated Osmolality 291 Uric Acid 4.5 Calcium 8.1 L Phosphorus 3.0 Magnesium 2.3 Total Bilirubin < 0.3 AST 26 ALT 20 Alkaline Phosphatase 61 Lactate Dehydrogenase 577 H Serum Total Protein 6.3 Albumin 3.3 L Globulin 3.0 Albumin/Globulin Ratio 1.1 Specimen Rejected Hemolyzed 10/09/16 07:54 WBC RBC Hgb Hct MCV MCH MCHC RDW Plt Count MPV Immature Gran % Seg Neutrophils % Lymphocytes % Monocytes % Eosinophils % Basophils % Neutrophils # Lymphocytes # Monocytes # Eosinophils # Basophils # Sodium Potassium Chloride Carbon Dioxide BUN Creatinine Est GFR ( Amer) Est GFR (Non-Af Amer) BUN/Creatinine Ratio Glucose POC Glucose 172 H Calculated Osmolality Uric Acid Calcium Phosphorus Magnesium Total Bilirubin AST ALT Alkaline Phosphatase Lactate Dehydrogenase Serum Total Protein Albumin Globulin Albumin/Globulin Ratio Specimen Rejected - ABG Interpretation ABG results: PT/INR, D-dimer PT 13.4 Seconds (9.4-12.1) H 10/04/16 12:49 Consult Discharge Plan - Plan Instructions: Chronic Obstructive Pulmonary Disease (DC) Referrals: Katya Knox CNP [Advanced Practice Nurse] - 10/13/16 1:00 pm
[2016-10-09] MEDS ORDERED: Furosemide 20 MG/2 ML VIAL IVP ONE (11:02)
--- NOTE | 2016-10-09 11:07 | Internal Med Progress Note ---
Date of Encounter: 10/09/16 Time of Encounter: 11:05 - Assessment and plan (1) Mediastinal lymphadenopathy Current Visit: Yes Status: Acute Assessment and plan: Oncology evaluation appreciated Biopsy results consistent with SCLC Pt started chemotherapy (10/07/16) discontinue IV fluids due to generalized edema one time dose of Lasix 20mg IV to be given closely monitor for Tumor lysis syndrome O2 supplementation as needed will closely monitor respiratory status pain control Fentany patch Speech therapy evaluation noted and started diet as per their recommendations TPN started due to decrease PO intake. If respiratory status deteriorates due to volume overload, will increase Lasix dose. Mental status fluctuating likely secondary to delirium of acute illness, hospitalization, medications, and metabolic causes will continue 1:1 bedside sitter closely monitor mental status (2) Small cell lung cancer in adult Current Visit: Yes Status: Acute Assessment and plan: Plan as listed above (3) CAD (coronary artery disease) Current Visit: Yes Status: Acute Assessment and plan: continue ASA, Plavix, and BB Qualifiers: Coronary Disease-Associated Artery/Lesion type: unspecified vessel or lesion type [place] vs. transplanted heart: unspecified whether [place] or transplanted heart Associated angina: with unspecified angina Qualified Code (s): I25.119 - Atherosclerotic heart disease of [place] coronary artery with unspecified angina pectoris (4) COPD (chronic obstructive pulmonary disease) Current Visit: Yes Status: Acute Assessment and plan: not in acute exacerbation continue bronchodilator support as needed smoking cessation counseling provided nicotine replacement therapy provided Qualifiers: COPD type: unspecified COPD Qualified Code(s): J44.9 - Chronic obstructive pulmonary disease, unspecified (5) Essential hypertension Current Visit: Yes Status: Acute Assessment and plan: BP within acceptable range will closely monitor restarting home medications as needed (6) DVT prophylaxis Current Visit: Yes Status: Acute Assessment and plan: Heparin SQ (7) Lactic acid acidosis Current Visit: Yes Status: Resolved - Subjective Interval history: Pt seen and examined at bedside. Noted to have generalized edema and bibasilar crackles, likely secondary fluid overload. Currently continuing chemotherapy for SCLC. Mental status more confused, has moments of clarity for during my evaluation he was oriented to only self and denied any distress. - Constitutional Vitals: Temp Pulse Resp BP Pulse Ox 97.4 F L 96 18 120/88 96 10/09/16 10:52 10/09/16 10:52 10/09/16 10:52 10/09/16 10:52 10/09/16 10:52 General appearance: Present: cooperative, A&O X 1 (generalized edema ), pleasant , no acute distress, answers questions appropriately - Head Head exam: Present: atraumatic, normocephalic - Eye Eye exam: Present: conjuntiva pink, sclera anicteric - Respiratory Respiratory exam: Absent: respiratory distress, wheezes (bibasilar crackles) - Cardiovascular Cardiovascular exam: Present: RRR, +S1, +S2. Absent: diastolic murmur, gallop, rubs, systolic murmur - GI/Abdominal GI/Abdominal exam: Present: normal bowel sounds, soft, no peritoneal signs. Absent: distended, tenderness - Extremities Exam Extremities exam: Present: pedal edema, warm, radial pulses palpable and symmetrical. Absent: calf tenderness - Neurological Exam Neurological exam: Present: alert Internal Medicine: Result - Labs CBC & Chem 7: 10/09/16 03:50 10/09/16 04:46 Labs: Short CBC 10/09/16 Range/Units 03:50 WBC 10.8 D (4.3-11.1) K/mcL Hgb 12.1 L D (12.9-16.9) g/dL Hct 33.1 L (37.5-50.1) % Plt Count 197 (140-400) K/mcL Neutrophils # 9.6 H (1.6-8.9) K/mcL BMP 10/08/16 10/09/16 20:05 04:46 Sodium 139 138 Potassium 3.7 3.9 Chloride 114 H 112 H Carbon Dioxide 16 L 16 L BUN 18 18 Creatinine 0.77 0.76 Glucose 139 H 146 H Calcium 8.4 L 8.1 L Liver Function 10/08/16 10/09/16 Range/Units 20:05 04:46 Total Bilirubin 0.4 < 0.3 (0.2-1.2) mg/dL AST 24 26 (5-34) Units/L ALT 18 20 (0-55) Units/L Alkaline Phosphatase 60 61 (38-126) Units/L Albumin 3.2 L 3.3 L (3.5-5.0) g/dL - ABG Interpretation ABG results: PT/INR, D-dimer PT 13.4 Seconds (9.4-12.1) H 10/04/16 12:49 - VTE Documentation of Mechanical Device: Intermittent pneumatic compression device Consult Discharge Plan - Plan Instructions: Chronic Obstructive Pulmonary Disease (DC) Referrals: Katya Knox CNP [Advanced Practice Nurse] - 10/13/16 1:00 pm
[2016-10-09] MEDS ORDERED: Clinimix E 5%-15% SOLUTION 2,000 ML with MVI, adult with vitamin K 10 ML IVC SCH (17:00)
[2016-10-09 21:18] LABS: Alanine Aminotransferase 21 Units/L (0-55); Albumin 3.2 g/dL (3.5-5.0); Albumin/Globulin Ratio 1.2 (1.1-2.2); Alkaline Phosphatase 55 Units/L (38-126); Aspartate Amino Transferase 28 Units/L (5-34); BUN/Creatinine Ratio 34 (6-26); Bilirubin,Total 0.3 mg/dL (0.2-1.2); Blood Urea Nitrogen 25 mg/dL (8-26); Calcium 8.8 mg/dL (8.6-10.8); Carbon Dioxide 20 mEq/L (19-29); Chloride 110 mEq/L (98-109); Globulin 2.6 g/dL (2.4-3.5); Glucose 109 mg/dL (70-99); Magnesium 2.4 mg/dL (1.6-2.6); Osmolality,Calculated 293 (280-300); Phosphorous 3.3 mg/dL (2.3-4.7); Potassium 3.9 mEq/L (3.5-4.5); Sodium 139 mEq/L (136-145); Total Protein 5.8 g/dL (6.0-8.3); Uric Acid 4.5 mg/dL (3.5-7.2); eGFR For African Americans > 60 (> 60); eGFR For Non-African Americans > 60 (> 60)
[2016-10-09 21:21] LABS: Lactate Dehydrogenase 545 Units/L (159-327)
[2016-10-10] MEDS: Levalbuterol Neb 1.25 MG/3 ML IH SCH ×4 (04:19→21:31)
[2016-10-10 04:32] LABS: Basophils % 0.1 %; Hematocrit 30.9 % (37.5-50.1); Immature Granulocytes % 0.6 % (0-4); Lymphocytes # 1.3 K/mcL (0.6-4.6); Lymphocytes % 15.4 %; Mean Corpuscular HGB Conc 33.3 g/dL (31.6-35.5); Mean Corpuscular Hemoglobin 31.7 pg (28.0-33.3); Mean Corpuscular Volume 95.1 fL (83.0-100.0); Mean Platelet Volume 9.6 fL (9.4-12.4); Monocytes # 0.8 K/mcL (0.0-1.3); Monocytes % 8.9 %; Neutrophils # 6.5 K/mcL (1.6-8.9); Platelet Count 176 K/mcL (140-400); Red Blood Count 3.25 M/mcL (4.19-5.50); Red Cell Distribution Width 13.8 % (11.5-14.5)
[2016-10-10 04:40] LABS: Magnesium 2.3 mg/dL (1.6-2.6)
[2016-10-10 04:43] LABS: Alanine Aminotransferase 22 Units/L (0-55); Albumin/Globulin Ratio 1.2 (1.1-2.2); Alkaline Phosphatase 52 Units/L (38-126); Aspartate Amino Transferase 30 Units/L (5-34); BUN/Creatinine Ratio 34 (6-26); Bilirubin,Total 0.3 mg/dL (0.2-1.2); Blood Urea Nitrogen 25 mg/dL (8-26); Calcium 8.5 mg/dL (8.6-10.8); Carbon Dioxide 20 mEq/L (19-29); Chloride 111 mEq/L (98-109); Globulin 2.5 g/dL (2.4-3.5); Glucose 99 mg/dL (70-99); Osmolality,Calculated 290 (280-300); Potassium 3.6 mEq/L (3.5-4.5); Sodium 138 mEq/L (136-145); Total Protein 5.5 g/dL (6.0-8.3); Uric Acid 4.4 mg/dL (3.5-7.2); eGFR For African Americans > 60 (> 60); eGFR For Non-African Americans > 60 (> 60)
[2016-10-10 04:44] LABS: Lactate Dehydrogenase 503 Units/L (159-327)
[2016-10-10 04:50] LABS: Hemoglobin 10.3 g/dL (12.9-16.9)
[2016-10-10] MEDS: *HR* Heparin 5,000 UNIT/ML VIAL SQ SCH ×2 (05:29→18:04)
[2016-10-10] MEDS: Isosorbide MONOnitrate (24 HR) 60 MG TAB.ER.24H PO SCH (08:37)
[2016-10-10] MEDS: Aspirin Enteric Coated 81 MG Tablet PO SCH (08:37)
[2016-10-10] MEDS: Folic Acid 1 MG TABLET PO SCH (08:37)
[2016-10-10] MEDS: Nicotine 21 MG PATCH.TD24 TD SCH (08:38)
--- NOTE | 2016-10-10 09:55 | Internal Med Progress Note ---
Date of Encounter: 10/10/16 Time of Encounter: 09:52 - Assessment and plan (1) Mediastinal lymphadenopathy Current Visit: Yes Status: Acute Assessment and plan: Oncology evaluation appreciated Biopsy results consistent with SCLC Pt started chemotherapy (10/07/16) discontinue IV fluids due to generalized edema Will give Lasix 40mg IV BID today closely monitor for Tumor lysis syndrome O2 supplementation as needed will closely monitor respiratory status pain control Fentany patch Speech therapy evaluation noted and started diet as per their recommendations TPN started due to decrease PO intake. Mental status fluctuating-currently AAO x 3 likely secondary to delirium of acute illness, hospitalization, medications, and metabolic causes will continue 1:1 bedside sitter closely monitor mental status (2) Small cell lung cancer in adult Current Visit: Yes Status: Acute Assessment and plan: Plan as listed above (3) CAD (coronary artery disease) Current Visit: Yes Status: Acute Assessment and plan: continue ASA, Plavix, and BB Qualifiers: Coronary Disease-Associated Artery/Lesion type: unspecified vessel or lesion type [place] vs. transplanted heart: unspecified whether [place] or transplanted heart Associated angina: with unspecified angina Qualified Code (s): I25.119 - Atherosclerotic heart disease of [place] coronary artery with unspecified angina pectoris (4) COPD (chronic obstructive pulmonary disease) Current Visit: Yes Status: Acute Assessment and plan: not in acute exacerbation continue bronchodilator support as needed smoking cessation counseling provided nicotine replacement therapy provided Qualifiers: COPD type: unspecified COPD Qualified Code(s): J44.9 - Chronic obstructive pulmonary disease, unspecified (5) Essential hypertension Current Visit: Yes Status: Acute Assessment and plan: BP within acceptable range will closely monitor restarting home medications as needed increased BB dose to home dose (Atenolol 75mg PO qd) (6) DVT prophylaxis Current Visit: Yes Status: Acute Assessment and plan: Heparin SQ (7) Lactic acid acidosis Current Visit: Yes Status: Resolved - Subjective Interval history: Pt seen and examined with family present at bedside. Noted to have generalized ana likely secondary fluid overload. Currently continuing chemotherapy for SCLC. Mental status back to baseline. Pt still not tolerating PO intake well, however states he likes ensure so willing to drink that. Detailed discussion held patient and family in regards to PO intake and possible need for PEG tube placement. Family concerned that with patient's mental status waxing and waning, he is at risk of pulling out the PEG tube when he is altered. 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 - Constitutional Vitals: Temp Pulse Resp BP Pulse Ox 97.1 F L 98 16 153/99 96 10/10/16 07:33 10/10/16 07:33 10/10/16 07:33 10/10/16 07:33 10/10/16 07:33 General appearance: Present: cooperative, A&O X 3 (generalized edema), pleasant , no acute distress, answers questions appropriately - Head Head exam: Present: atraumatic, normocephalic - Respiratory Respiratory exam: Absent: respiratory distress, wheezes - Cardiovascular Cardiovascular exam: Present: RRR, +S1, +S2. Absent: diastolic murmur, gallop, rubs, systolic murmur - GI/Abdominal GI/Abdominal exam: Present: normal bowel sounds, soft, no peritoneal signs. Absent: distended, tenderness - Extremities Exam Extremities exam: Present: pedal edema, warm, radial pulses palpable and symmetrical. Absent: calf tenderness - Neurological Exam Neurological exam: Present: alert, oriented X3 - Psychiatric Psychiatric exam: Present: normal affect, normal mood Internal Medicine: Result - Labs CBC & Chem 7: 10/10/16 04:13 10/10/16 04:13 Labs: Short CBC 10/10/16 Range/Units 04:13 WBC 8.7 (4.3-11.1) K/mcL Hgb 10.3 L D (12.9-16.9) g/dL Hct 30.9 L (37.5-50.1) % Plt Count 176 (140-400) K/mcL Neutrophils # 6.5 (1.6-8.9) K/mcL BMP 10/09/16 10/10/16 20:57 04:13 Sodium 139 138 Potassium 3.9 3.6 Chloride 110 H 111 H Carbon Dioxide 20 20 BUN 25 25 Creatinine 0.74 0.74 Glucose 109 H 99 Calcium 8.8 8.5 L Liver Function 10/09/16 10/10/16 Range/Units 20:57 04:13 Total Bilirubin 0.3 0.3 (0.2-1.2) mg/dL AST 28 30 (5-34) Units/L ALT 21 22 (0-55) Units/L Alkaline Phosphatase 55 52 (38-126) Units/L Albumin 3.2 L 3.0 L (3.5-5.0) g/dL - ABG Interpretation ABG results: PT/INR, D-dimer PT 13.4 Seconds (9.4-12.1) H 10/04/16 12:49 - VTE Documentation of Mechanical Device: Intermittent pneumatic compression device Consult Discharge Plan - Plan Instructions: Chronic Obstructive Pulmonary Disease (DC) Referrals: Katya Knox CNP [Advanced Practice Nurse] - 10/13/16 1:00 pm
[2016-10-10] MEDS: Furosemide 40 MG/4 ML VIAL IVP SCH ×2 (10:32→18:04)
[2016-10-10] MEDS: *HR* FentaNYL PATCH 12 MCG PATCH TD SCH (13:24)
[2016-10-10] MEDS ORDERED: Clinimix E 5%-15% SOLUTION 2,000 ML with MVI, adult with vitamin K 10 ML IVC SCH (17:00)
--- NOTE | 2016-10-10 19:18 | Oncology Inp Progress Note ---
Date of Encounter: 10/10/16 Time of Encounter: 15:30 (1) Small cell lung cancer in adult Current Visit: Yes Status: Acute Assessment and plan: Completed cycle 1 of cisplatin 60 mg/m2 and etoposide 60 mg/m2. Clinically, he is responding. No evidence of TLS. Okay to continue with diuresis and decrease hydration. Encouraged mobilization and increasing oral intake. Oncology: Subj Interval history: Receiving a breathing treatment. Feeling better. Breathing better. Diuresing well per nursing. No fever or chills. - Constitutional Vitals: Vital Signs Temp Pulse Resp BP Pulse Ox 10/10/16 18:02 91/62 10/10/16 16:03 16 96 10/10/16 15:00 97.0 F L 83 16 99/66 96 10/10/16 12:31 97.6 F 90 16 97/66 95 10/10/16 10:56 16 96 10/10/16 10:42 97.2 F L 96 16 88/56 96 10/10/16 07:33 97.1 F L 98 16 153/99 96 10/10/16 03:35 97.7 F 90 16 122/79 97 10/09/16 23:07 98.0 F 94 20 154/72 97 10/09/16 22:22 15 98 Intake and Output 10/10/16 10/10/16 10/11/16 08:59 16:59 00:59 Intake Total 2163.0 / 2163.0 0 / 0 120 / 120 Balance 2163.0 / 2163.0 0 / 0 120 / 120 Intake: IV Fluids 1923.0 / 1923.0 Clinimix E 5%-15% 1673 / 1673 SOLUTION 2,000 ML @ 83.3 mls/hr IVC .Q24H [facility] with M.v.i. Adult 10 ml Rx#: [id number] Intralipid 20% 250 ML @ 250.0 / 250.0 21 mls/hr IVPB DAILY@1700 [facility] Rx#:[id number] Oral 240 / 240 0 / 0 120 / 120 Other: Meal Lunch Dinner Percent of Meal Consumed 10% 5% Stool Size Moderate Stool Consistency soft Stool Color Brown # Voids 1 1 Weight 81.919 kg Blood Glucose* 114 123 Patient Weight 10/11/16 00:59 Weight 81.919 kg - Head Head exam: Present: atraumatic, normal inspection, normocephalic - Eye Eye exam: Present: conjuntiva pink, sclera anicteric - ENT ENT exam: Present: mucous membranes moist, normal exam - Respiratory Respiratory exam: Present: decreased breath sounds, rhonchi - Cardiovascular Cardiovascular exam: Present: RRR - GI/Abdominal GI/Abdominal exam: Present: normal bowel sounds, soft - Extremities Exam Extremities exam: Present: normal inspection, pedal edema - Neurological Exam Neurological exam: Present: alert, CN II-XII intact, oriented X3 Oncology: Obj Data - Labs CBC & Chem 7: 10/10/16 04:13 10/10/16 04:13 Labs: Laboratory Results - last 24 hr 10/09/16 10/09/16 10/09/16 20:13 20:57 23:37 WBC RBC Hgb Hct MCV MCH MCHC RDW Plt Count MPV Immature Gran % Seg Neutrophils % Lymphocytes % Monocytes % Eosinophils % Basophils % Neutrophils # Lymphocytes # Monocytes # Eosinophils # Basophils # Sodium 139 Potassium 3.9 Chloride 110 H Carbon Dioxide 20 BUN 25 Creatinine 0.74 Est GFR ( Amer) > 60 Est GFR (Non-Af Amer) > 60 BUN/Creatinine Ratio 34 H Glucose 109 H POC Glucose 141 H 150 H Calculated Osmolality 293 Uric Acid 4.5 Calcium 8.8 Phosphorus 3.3 Magnesium 2.4 Total Bilirubin 0.3 AST 28 ALT 21 Alkaline Phosphatase 55 Lactate Dehydrogenase 545 H Serum Total Protein 5.8 L Albumin 3.2 L Globulin 2.6 Albumin/Globulin Ratio 1.2 10/10/16 10/10/16 10/10/16 03:32 04:13 04:13 WBC 8.7 RBC 3.25 L Hgb 10.3 L D Hct 30.9 L MCV 95.1 MCH 31.7 MCHC 33.3 RDW 13.8 Plt Count 176 MPV 9.6 Immature Gran % 0.6 Seg Neutrophils % 75.0 Lymphocytes % 15.4 Monocytes % 8.9 Eosinophils % 0.0 Basophils % 0.1 Neutrophils # 6.5 Lymphocytes # 1.3 Monocytes # 0.8 Eosinophils # 0.0 Basophils # 0.0 Sodium Potassium Chloride Carbon Dioxide BUN Creatinine Est GFR ( Amer) Est GFR (Non-Af Amer) BUN/Creatinine Ratio Glucose POC Glucose 111 H Calculated Osmolality Uric Acid Calcium Phosphorus 3.0 Magnesium 2.3 Total Bilirubin AST ALT Alkaline Phosphatase Lactate Dehydrogenase Serum Total Protein Albumin Globulin Albumin/Globulin Ratio 10/10/16 10/10/16 10/10/16 04:13 07:31 12:31 WBC RBC Hgb Hct MCV MCH MCHC RDW Plt Count MPV Immature Gran % Seg Neutrophils % Lymphocytes % Monocytes % Eosinophils % Basophils % Neutrophils # Lymphocytes # Monocytes # Eosinophils # Basophils # Sodium 138 Potassium 3.6 Chloride 111 H Carbon Dioxide 20 BUN 25 Creatinine 0.74 Est GFR ( Amer) > 60 Est GFR (Non-Af Amer) > 60 BUN/Creatinine Ratio 34 H Glucose 99 POC Glucose 114 H 97 H Calculated Osmolality 290 Uric Acid 4.4 Calcium 8.5 L Phosphorus Magnesium Total Bilirubin 0.3 AST 30 ALT 22 Alkaline Phosphatase 52 Lactate Dehydrogenase 503 H Serum Total Protein 5.5 L Albumin 3.0 L Globulin 2.5 Albumin/Globulin Ratio 1.2 10/10/16 16:31 WBC RBC Hgb Hct MCV MCH MCHC RDW Plt Count MPV Immature Gran % Seg Neutrophils % Lymphocytes % Monocytes % Eosinophils % Basophils % Neutrophils # Lymphocytes # Monocytes # Eosinophils # Basophils # Sodium Potassium Chloride Carbon Dioxide BUN Creatinine Est GFR ( Amer) Est GFR (Non-Af Amer) BUN/Creatinine Ratio Glucose POC Glucose 123 H Calculated Osmolality Uric Acid Calcium Phosphorus Magnesium Total Bilirubin AST ALT Alkaline Phosphatase Lactate Dehydrogenase Serum Total Protein Albumin Globulin Albumin/Globulin Ratio - ABG Interpretation ABG results: PT/INR, D-dimer PT 13.4 Seconds (9.4-12.1) H 10/04/16 12:49 Consult Discharge Plan - Plan Instructions: Chronic Obstructive Pulmonary Disease (DC) Referrals: Katya Knox CNP [Advanced Practice Nurse] - 10/13/16 1:00 pm
[2016-10-11 03:22] LABS: Eosinophils % 0.6 %; Hematocrit 29.1 % (37.5-50.1); Hemoglobin 9.9 g/dL (12.9-16.9); Immature Granulocytes % 0.3 % (0-4); Lymphocytes # 1.4 K/mcL (0.6-4.6); Lymphocytes % 22.1 %; Mean Corpuscular Hemoglobin 31.9 pg (28.0-33.3); Mean Corpuscular Volume 93.9 fL (83.0-100.0); Mean Platelet Volume 9.6 fL (9.4-12.4); Monocytes # 0.3 K/mcL (0.0-1.3); Monocytes % 4.8 %; Neutrophils # 4.6 K/mcL (1.6-8.9); Platelet Count 160 K/mcL (140-400); Segmented Neutrophils % 72.2 %
[2016-10-11 03:35] LABS: BUN/Creatinine Ratio 40 (6-26); Blood Urea Nitrogen 26 mg/dL (8-26); Calcium 8.4 mg/dL (8.6-10.8); Carbon Dioxide 24 mEq/L (19-29); Chloride 107 mEq/L (98-109); Glucose 101 mg/dL (70-99); Magnesium 2.1 mg/dL (1.6-2.6); Osmolality,Calculated 289 (280-300); Phosphorous 3.6 mg/dL (2.3-4.7); Potassium 3.6 mEq/L (3.5-4.5); Sodium 137 mEq/L (136-145); eGFR For African Americans > 60 (> 60); eGFR For Non-African Americans > 60 (> 60)
[2016-10-11 03:36] LABS: Uric Acid 4.4 mg/dL (3.5-7.2)
[2016-10-11] MEDS: Levalbuterol Neb 1.25 MG/3 ML IH SCH ×4 (03:51→22:36)
[2016-10-11] MEDS: *HR* Heparin 5,000 UNIT/ML VIAL SQ SCH ×2 (06:08→17:15)
[2016-10-11] MEDS: Nicotine 21 MG PATCH.TD24 TD SCH (08:35)
[2016-10-11] MEDS: Folic Acid 1 MG TABLET PO SCH (08:36)
[2016-10-11] MEDS: Aspirin Enteric Coated 81 MG Tablet PO SCH (08:36)
[2016-10-11] MEDS: Isosorbide MONOnitrate (24 HR) 60 MG TAB.ER.24H PO SCH (13:40)
--- NOTE | 2016-10-11 15:12 | Internal Med Progress Note ---
Date of Encounter: 10/11/16 Time of Encounter: 13:30 - Assessment and plan (1) Small cell lung cancer in adult Current Visit: Yes Status: Acute Assessment and plan: Continue management per oncology recommendations. Patient has completed cycle 1 of chemotherapy with cisplatin and etoposide. He tolerated chemotherapy well. Blood counts are stable so far. Continue supportive care. (2) CAD (coronary artery disease) Current Visit: Yes Status: Chronic Assessment and plan: Continue aspirin, Plavix, statin and beta binh. No chest pain at this time. Qualifiers: Coronary Disease-Associated Artery/Lesion type: unspecified vessel or lesion type [place] vs. transplanted heart: unspecified whether [place] or transplanted heart Associated angina: with unspecified angina Qualified Code (s): I25.119 - Atherosclerotic heart disease of [place] coronary artery with unspecified angina pectoris (3) COPD (chronic obstructive pulmonary disease) Current Visit: Yes Status: Chronic Assessment and plan: Continue bronchodilators as needed Qualifiers: COPD type: unspecified COPD Qualified Code(s): J44.9 - Chronic obstructive pulmonary disease, unspecified (4) Essential hypertension Current Visit: Yes Status: Chronic Assessment and plan: Blood pressure is well controlled. Continue current medications (5) Dysphagia Current Visit: Yes Status: Acute Assessment and plan: Improving. Patient able to tolerate soft diet. Qualifiers: Dysphagia type: unspecified Qualified Code(s): R13.10 - Dysphagia, unspecified (6) Protein-calorie malnutrition, severe Current Visit: Yes Status: Acute Assessment and plan: Due to poor appetite and dysphagia. As patient is able to tolerate soft diet but continues to lack appetite, we will place him on Remeron to stimulate appetite. He is currently receiving TPN. However I do not plan on discharging him on TPN due to high risk for infections especially as he would be receiving chemotherapy and has a functional GI tract. Encourage oral diet. Awaiting placement to skilled rehabilitation. - Subjective Interval history: Patient is sitting up in chair. Receiving TPN. Denies any new complaints at this time. Able to tolerate ensure and soft diet without any complications. Patient does have a lack of appetite. Swelling in his lower extremities is improving. Feels better overall. - Constitutional Vitals: Temp Pulse Resp BP Pulse Ox 97.7 F 97 18 104/75 100 10/11/16 11:30 10/11/16 11:30 10/11/16 11:30 10/11/16 11:30 10/11/16 11:30 General appearance: Present: cooperative, A&O X 3, pleasant, no acute distress, answers questions appropriately - Neck Neck exam general surgery: Present: supple, trachea midline. Absent: lymphadenopathy - Respiratory Respiratory exam: Present: CTAB. Absent: accessory muscle use, rales, rhonchi, wheezes - Cardiovascular Cardiovascular exam: Present: RRR, +S1, +S2. Absent: diastolic murmur, gallop, rubs, systolic murmur - GI/Abdominal GI/Abdominal exam: Present: normal bowel sounds, soft, no peritoneal signs. Absent: distended, tenderness - Extremities Exam Extremities exam: Present: pedal edema (Improving.), warm, radial pulses palpable and symmetrical. Absent: calf tenderness, cyanotic - Neurological Exam Neurological exam: Present: CN II-XII intact, oriented X3, no focal deficits, strengths equal and symetr throughout. Absent: facial droop, speech deficit Internal Medicine: Result - Labs CBC & Chem 7: 10/11/16 03:05 10/11/16 03:05 Labs: Short CBC 10/11/16 Range/Units 03:05 WBC 6.4 (4.3-11.1) K/mcL Hgb 9.9 L (12.9-16.9) g/dL Hct 29.1 L (37.5-50.1) % Plt Count 160 (140-400) K/mcL Neutrophils # 4.6 (1.6-8.9) K/mcL BMP 10/11/16 03:05 Sodium 137 Potassium 3.6 Chloride 107 Carbon Dioxide 24 BUN 26 Creatinine 0.65 L Glucose 101 H Calcium 8.4 L - ABG Interpretation ABG results: PT/INR, D-dimer PT 13.4 Seconds (9.4-12.1) H 10/04/16 12:49 - VTE Documentation of Mechanical Device: Intermittent pneumatic compression device Consult Discharge Plan - Plan Instructions: Chronic Obstructive Pulmonary Disease (DC) Referrals: Katya Knox [employer] [Advanced Practice Nurse] - 10/13/16 1:00 pm
[2016-10-11] MEDS ORDERED: Clinimix E 5%-15% SOLUTION 2,000 ML with MVI, adult with vitamin K 10 ML IVC SCH ×2 (17:00→17:53)
[2016-10-11] MEDS: Mirtazapine 15 MG TABLET PO SCH (20:45)
[2016-10-12] MEDS: Levalbuterol Neb 1.25 MG/3 ML IH SCH ×4 (04:08→22:48)
[2016-10-12 04:29] LABS: BUN/Creatinine Ratio 29 (6-26); Blood Urea Nitrogen 18 mg/dL (8-26); Calcium 8.7 mg/dL (8.6-10.8); Carbon Dioxide 26 mEq/L (19-29); Chloride 106 mEq/L (98-109); Glucose 94 mg/dL (70-99); Magnesium 1.9 mg/dL (1.6-2.6); Osmolality,Calculated 290 (280-300); Phosphorous 3.9 mg/dL (2.3-4.7); Potassium 3.6 mEq/L (3.5-4.5); Sodium 139 mEq/L (136-145); eGFR For African Americans > 60 (> 60); eGFR For Non-African Americans > 60 (> 60)
[2016-10-12] MEDS: *HR* Heparin 5,000 UNIT/ML VIAL SQ SCH ×2 (06:24→17:38)
--- NOTE | 2016-10-12 07:55 | Oncology Inp Progress Note ---
Date of Encounter: 10/11/16 Time of Encounter: 17:00 (1) Small cell lung cancer in adult Current Visit: Yes Status: Acute Assessment and plan: Completed cycle 1 of cisplatin 60 mg/m2 and etoposide 60 mg/m2. Clinically, he is responding. No evidence of TLS. Okay to continue with diuresis and decrease hydration. I would recommend cessation of his TPN and encourage by mouth intake. He will soon become at risk for infection and TPN may exacerbate this risk. Regarding disposition, I think a short stay in an SNF is reasonable. However goals of care were discussed with the patient and his brother. He cannot be there for longer than 1-2 weeks as this will hinder my ability proceed with a second dose of chemotherapy. This tumor will progress without further therapy. Oncology: Subj Interval history: Mr. Shah is feeling better today. He sitting up in his bed with his brother at his bedside. He is breathing more easily. His right shoulder and neck pain is much improved. Appetite is still a bit down. Oral intake is minimal. He continues on TPN. Swelling is markedly improved. Ambulated minimally within the room. Currently placement is being entertained in a SNF. - Constitutional Vitals: Vital Signs Temp Pulse Resp BP Pulse Ox 10/12/16 04:09 18 97 10/12/16 03:32 98.2 F 92 18 129/83 99 10/11/16 23:22 97.5 F L 96 19 91/65 94 10/11/16 22:36 19 95 10/11/16 19:56 98.1 F 97 18 96/66 99 10/11/16 16:38 18 100 10/11/16 15:00 97.6 F 93 18 93/65 100 10/11/16 11:30 97.7 F 97 18 104/75 100 10/11/16 10:26 16 100 Intake and Output 10/11/16 10/12/16 10/12/16 16:59 00:59 08:59 Intake Total 995 / 995 177 / 177 849 / 849 Output Total 350 / 350 325 / 325 300 / 300 Balance 645 / 645 -148 / -148 549 / 549 Intake: IV Fluids / 77 / 77 849 / 849 Clinimix E 5%-15% / 77 / SOLUTION 2,000 ML @ 83.3 mls/hr IVC .Q24H [facility] with M.v.i. Adult 10 ml Rx#: [id number] Intralipid 20% 250 ML @ 250 / 250 21 mls/hr IVPB DAILY@1700 [facility] Rx#:[id number] Oral 320 / 320 100 / 100 0 / 0 Output: Urine 350 / 350 325 / 325 300 / 300 Other: Meal Lunch Dinner few bites of Soup, few bites of ice cream Percent of Meal Consumed 5% 5% Weight 81.3 kg Blood Glucose* 139 128 120 Patient Weight 10/13/16 00:59 Weight 81.3 kg - Head Head exam: Present: normal inspection, normocephalic - Eye Eye exam: Present: conjuntiva pink, sclera anicteric - ENT ENT exam: Present: mucous membranes moist, normal exam - Neck Neck exam: Present: lymphadenopathy, normal inspection - Respiratory Respiratory exam: Present: decreased breath sounds, CTAB - Cardiovascular Cardiovascular exam: Present: RRR - GI/Abdominal GI/Abdominal exam: Present: normal bowel sounds, soft - Extremities Exam Extremities exam: Present: pedal edema - Neurological Exam Neurological exam: Present: alert, CN II-XII intact, no focal deficits Oncology: Obj Data - Labs CBC & Chem 7: 10/11/16 03:05 10/12/16 03:55 Labs: Laboratory Results - last 24 hr 10/11/16 10/11/16 10/11/16 08:24 11:47 16:37 Sodium Potassium Chloride Carbon Dioxide BUN Creatinine Est GFR ( Amer) Est GFR (Non-Af Amer) BUN/Creatinine Ratio Glucose POC Glucose 135 H 120 H 139 H Calculated Osmolality Calcium Phosphorus Magnesium 10/11/16 10/12/16 10/12/16 23:26 03:35 03:55 Sodium 139 Potassium 3.6 Chloride 106 Carbon Dioxide 26 BUN 18 Creatinine 0.63 L Est GFR ( Amer) > 60 Est GFR (Non-Af Amer) > 60 BUN/Creatinine Ratio 29 H Glucose 94 POC Glucose 128 H 120 H Calculated Osmolality 290 Calcium 8.7 Phosphorus 3.9 Magnesium 1.9 - ABG Interpretation ABG results: PT/INR, D-dimer PT 13.4 Seconds (9.4-12.1) H 10/04/16 12:49 Consult Discharge Plan - Plan Instructions: Chronic Obstructive Pulmonary Disease (DC)
[2016-10-12] MEDS: Nicotine 21 MG PATCH.TD24 TD SCH (08:01)
[2016-10-12] MEDS: Aspirin Enteric Coated 81 MG Tablet PO SCH (08:01)
[2016-10-12] MEDS: Isosorbide MONOnitrate (24 HR) 60 MG TAB.ER.24H PO SCH ×2 (08:01→16:09)
[2016-10-12] MEDS: Folic Acid 1 MG TABLET PO SCH (08:01)
--- NOTE | 2016-10-12 14:00 | Internal Med Progress Note ---
Date of Encounter: 10/12/16 Time of Encounter: 09:25 - Assessment and plan (1) Small cell lung cancer in adult Current Visit: Yes Status: Acute Assessment and plan: Completed first cycle of chemotherapy and doing well. Follow up with oncology for further management after discharge. (2) CAD (coronary artery disease) Current Visit: Yes Status: Chronic Assessment and plan: Continue aspirin and statin and Plavix and beta binh Qualifiers: Coronary Disease-Associated Artery/Lesion type: unspecified vessel or lesion type [place] vs. transplanted heart: unspecified whether [place] or transplanted heart Associated angina: with unspecified angina Qualified Code (s): I25.119 - Atherosclerotic heart disease of [place] coronary artery with unspecified angina pectoris (3) COPD (chronic obstructive pulmonary disease) Current Visit: Yes Status: Chronic Assessment and plan: No acute exacerbation. He was bronchodilators as needed Qualifiers: COPD type: unspecified COPD Qualified Code(s): J44.9 - Chronic obstructive pulmonary disease, unspecified (4) Essential hypertension Current Visit: Yes Status: Chronic Assessment and plan: Blood pressure is well controlled (5) Dysphagia Current Visit: Yes Status: Acute Assessment and plan: Improving. Patient is able to swallow better but does lack of appetite. Qualifiers: Dysphagia type: unspecified Qualified Code(s): R13.10 - Dysphagia, unspecified (6) Protein-calorie malnutrition, severe Current Visit: Yes Status: Acute Assessment and plan: Patient has been started on Remeron to stimulate appetite. Will stop TPN due to high risk for infections. Encourage oral intake. - Subjective Interval history: Patient is lying in bed. Appears comfortable. Denies any new complaints at this time. Still does not have much appetite. Able to swallow food without any difficulty. Denies any abdominal pain nausea or vomiting. No fever or chills. - Constitutional Vitals: Temp Pulse Resp BP Pulse Ox 97.5 F L 86 16 128/88 98 10/12/16 12:03 10/12/16 12:03 10/12/16 12:03 10/12/16 12:03 10/12/16 12:03 General appearance: Present: cooperative, A&O X 3, pleasant, no acute distress, answers questions appropriately - Respiratory Respiratory exam: Present: CTAB. Absent: accessory muscle use, rales, rhonchi, wheezes - Cardiovascular Cardiovascular exam: Present: RRR, +S1, +S2. Absent: diastolic murmur, gallop, rubs, systolic murmur - Extremities Exam Extremities exam: Present: pedal edema, warm, radial pulses palpable and symmetrical. Absent: calf tenderness, cyanotic - Neurological Exam Neurological exam: Present: CN II-XII intact, oriented X3, no focal deficits. Absent: facial droop, speech deficit Internal Medicine: Result - Labs CBC & Chem 7: 10/11/16 03:05 10/12/16 03:55 Labs: BMP 10/12/16 03:55 Sodium 139 Potassium 3.6 Chloride 106 Carbon Dioxide 26 BUN 18 Creatinine 0.63 L Glucose 94 Calcium 8.7 - ABG Interpretation ABG results: PT/INR, D-dimer PT 13.4 Seconds (9.4-12.1) H 10/04/16 12:49 - VTE Documentation of Mechanical Device: Intermittent pneumatic compression device Consult Discharge Plan - Plan Instructions: Chronic Obstructive Pulmonary Disease (DC) Referrals: NONE,PCP [Primary Care Provider] -
[2016-10-12] MEDS: Mirtazapine 15 MG TABLET PO SCH (21:49)
[2016-10-13] MEDS: Levalbuterol Neb 1.25 MG/3 ML IH SCH ×4 (04:53→22:20)
[2016-10-13] MEDS: *HR* Heparin 5,000 UNIT/ML VIAL SQ SCH ×2 (06:40→18:02)
[2016-10-13] MEDS: Nicotine 21 MG PATCH.TD24 TD SCH (09:38)
[2016-10-13] MEDS: Isosorbide MONOnitrate (24 HR) 60 MG TAB.ER.24H PO SCH (09:39)
[2016-10-13] MEDS: Aspirin Enteric Coated 81 MG Tablet PO SCH (09:39)
[2016-10-13] MEDS: Folic Acid 1 MG TABLET PO SCH (09:39)
[2016-10-13] MEDS: *HR* FentaNYL PATCH 12 MCG PATCH TD SCH (13:22)
--- NOTE | 2016-10-13 15:15 | Internal Med Progress Note ---
Date of Encounter: 10/13/16 Time of Encounter: 10:35 - Assessment and plan (1) Small cell lung cancer in adult Current Visit: Yes Status: Acute Assessment and plan: We will arrange for outpatient follow-up with oncology at discharge. Clinically patient is responding well to treatment and chemotherapy. (2) CAD (coronary artery disease) Current Visit: Yes Status: Chronic Assessment and plan: Continue home medications. No chest pain at this time Qualifiers: Coronary Disease-Associated Artery/Lesion type: unspecified vessel or lesion type [place] vs. transplanted heart: unspecified whether [place] or transplanted heart Associated angina: with unspecified angina Qualified Code (s): I25.119 - Atherosclerotic heart disease of [place] coronary artery with unspecified angina pectoris (3) COPD (chronic obstructive pulmonary disease) Current Visit: Yes Status: Chronic Assessment and plan: Continue bronchodilators as needed Qualifiers: COPD type: unspecified COPD Qualified Code(s): J44.9 - Chronic obstructive pulmonary disease, unspecified (4) Essential hypertension Current Visit: Yes Status: Chronic Assessment and plan: Blood pressure is well controlled (5) Dysphagia Current Visit: Yes Status: Acute Assessment and plan: Improved. Patient tolerating soft diet well Qualifiers: Dysphagia type: unspecified Qualified Code(s): R13.10 - Dysphagia, unspecified (6) Protein-calorie malnutrition, severe Current Visit: Yes Status: Acute Assessment and plan: Improved appetite. Continue Remeron. We will recheck albumin levels in morning. - Subjective Interval history: Patient is sitting up in chair and eating breakfast. Denies any complaints at this time. Tolerating diet well. Has been able to eat more last night with increase in appetite. - Constitutional Vitals: Temp Pulse Resp BP Pulse Ox 97.5 F L 68 16 110/75 97 10/13/16 11:33 10/13/16 11:33 10/13/16 11:33 10/13/16 11:33 10/13/16 11:33 General appearance: Present: cooperative, A&O X 3, pleasant, no acute distress, answers questions appropriately - Neck Neck exam general surgery: Present: supple, trachea midline. Absent: lymphadenopathy - Respiratory Respiratory exam: Present: CTAB. Absent: accessory muscle use, rales, rhonchi, wheezes - Cardiovascular Cardiovascular exam: Present: RRR, +S1, +S2. Absent: diastolic murmur, gallop, rubs, systolic murmur - GI/Abdominal GI/Abdominal exam: Present: normal bowel sounds, soft, no peritoneal signs. Absent: distended, tenderness - Extremities Exam Extremities exam: Present: warm, radial pulses palpable and symmetrical. Absent : calf tenderness, cyanotic, pedal edema Internal Medicine: Result - Labs CBC & Chem 7: 10/11/16 03:05 10/12/16 03:55 - ABG Interpretation ABG results: PT/INR, D-dimer PT 13.4 Seconds (9.4-12.1) H 10/04/16 12:49 - VTE Documentation of Mechanical Device: Intermittent pneumatic compression device Consult Discharge Plan - Plan Instructions: Chronic Obstructive Pulmonary Disease (DC) Referrals: Reid Mensah Jr, RUBBER HEEL AND SOLE PRESS TENDER [Advanced Practice Nurse] - 10/25/16 9:30 am (This visit will be split with Dr. Triana. Thank you) NONE,PCP [Primary Care Provider] -
--- NOTE | 2016-10-13 18:21 | Oncology Inp Progress Note ---
Date of Encounter: 10/13/16 Time of Encounter: 16:30 (1) Small cell lung cancer in adult Current Visit: Yes Status: Acute Assessment and plan: Completed cycle 1 of cisplatin 60 mg/m2 and etoposide 60 mg/m2. Clinically, he is responding. No evidence of TLS. Continue supportive care. I will arrange for follow-up with Dr. Triana 1-2 weeks after discharge. We will sign off. If you have any concerns or questions, do not hesitate to call my cell phone at [phone] Oncology: Subj Interval history: Mr. Shah is doing much better. He is eating dinner currently. He has been ambulatory in his hospital room. Breathing is improved modestly. No further pain in the right neck area. Still has some dysphagia. Coughing up mucus. No fever chills or symptoms of infection. Overall he appears to be doing well. - Constitutional Vitals: Vital Signs Temp Pulse Resp BP Pulse Ox 10/13/16 16:08 97.7 F 98 16 104/72 99 10/13/16 15:50 18 96 10/13/16 11:33 97.5 F L 68 16 110/75 97 10/13/16 10:32 18 97 10/13/16 08:14 97.9 F 90 16 108/76 92 10/13/16 04:00 97.6 F 78 14 112/78 100 10/13/16 00:03 98.2 F 88 15 96/64 96 10/12/16 20:05 93/67 10/12/16 18:40 97.5 F L 95 15 87/62 96 Intake and Output 10/13/16 10/13/16 10/14/16 08:59 16:59 00:59 Intake Total 0 / 0 0 / 0 360 / 360 Output Total 400 / 400 Balance -400 / -400 0 / 0 360 / 360 Intake: Oral 0 / 0 0 / 0 360 / 360 Output: Urine 400 / 400 Other: Meal Lunch Dinner Percent of Meal Consumed 0% 75% # Voids 1 # Bowel Movements 1 Weight 80.9 kg Blood Glucose* 96 93 Patient Weight 10/14/16 00:59 Weight 80.9 kg - Head Head exam: Present: atraumatic, normal inspection, normocephalic - Eye Eye exam: Present: normal appearance, conjuntiva pink, sclera anicteric - ENT ENT exam: Present: mucous membranes moist, normal oropharynx - Neck Neck exam: Present: lymphadenopathy Additional comments: Improved from Monday - Respiratory Respiratory exam: Present: CTAB - Cardiovascular Cardiovascular exam: Present: RRR - GI/Abdominal GI/Abdominal exam: Present: normal bowel sounds, soft - Extremities Exam Extremities exam: Present: pedal edema - Neurological Exam Neurological exam: Present: alert, CN II-XII intact, oriented X3 Oncology: Obj Data - Labs CBC & Chem 7: 10/11/16 03:05 10/12/16 03:55 Labs: Laboratory Results - last 24 hr 10/12/16 10/13/16 10/13/16 20:05 00:02 08:10 POC Glucose 121 H 107 H 96 H 10/13/16 10/13/16 11:30 16:00 POC Glucose 102 H 93 H - ABG Interpretation ABG results: PT/INR, D-dimer PT 13.4 Seconds (9.4-12.1) H 10/04/16 12:49 Consult Discharge Plan - Plan Instructions: Chronic Obstructive Pulmonary Disease (DC) Referrals: Reid Mensah Jr, DEPUTY SHERIFF K9 HANDLER [Advanced Practice Nurse] - 10/25/16 9:30 am (This visit will be split with Dr. Triana. Thank you) NONE,PCP [Primary Care Provider] -
[2016-10-13] MEDS: Mirtazapine 15 MG TABLET PO SCH (20:45)
[2016-10-14] MEDS: Levalbuterol Neb 1.25 MG/3 ML IH SCH ×3 (04:23→09:49)
[2016-10-14] MEDS: *HR* Heparin 5,000 UNIT/ML VIAL SQ SCH ×2 (06:09→17:23)
[2016-10-14] MEDS: Folic Acid 1 MG TABLET PO SCH (09:51)
[2016-10-14] MEDS: Nicotine 21 MG PATCH.TD24 TD SCH (09:51)
[2016-10-14] MEDS: Aspirin Enteric Coated 81 MG Tablet PO SCH (09:51)
[2016-10-14] MEDS: Isosorbide MONOnitrate (24 HR) 60 MG TAB.ER.24H PO SCH (09:51)
[2016-10-14] MEDS ORDERED: Levalbuterol Neb 1.25 MG/3 ML IH PRN (11:03)
[2016-10-14] MEDS ORDERED: 0.9 % Sodium Chloride 500 ML IVC ONE (14:31)
[2016-10-14] MEDS ORDERED: 0.9 % Sodium Chloride 500 ML ONE (14:35)
--- NOTE | 2016-10-14 16:38 | Internal Med Progress Note ---
Date of Encounter: 10/14/16 Time of Encounter: 08:25 - Assessment and plan (1) Small cell lung cancer in adult Current Visit: Yes Status: Acute Assessment and plan: Doing well. Does have some cough but feels it is getting better. Saturating at 97% on 2 L. Continue chemotherapy as outpatient with cancer Center (2) CAD (coronary artery disease) Current Visit: Yes Status: Chronic Assessment and plan: On aspirin and statin and beta binh. Blood pressure has been on the lower side. Will decrease dosage of atenolol to 25 mg daily and Imdur to 60 mg daily. Qualifiers: Coronary Disease-Associated Artery/Lesion type: unspecified vessel or lesion type [place] vs. transplanted heart: unspecified whether [place] or transplanted heart Associated angina: with unspecified angina Qualified Code (s): I25.119 - Atherosclerotic heart disease of [place] coronary artery with unspecified angina pectoris (3) COPD (chronic obstructive pulmonary disease) Current Visit: Yes Status: Chronic Assessment and plan: No acute exacerbation. Change Xopenex to needed Qualifiers: COPD type: unspecified COPD Qualified Code(s): J44.9 - Chronic obstructive pulmonary disease, unspecified (4) Essential hypertension Current Visit: Yes Status: Chronic Assessment and plan: Blood pressure on the lower side. Decreased dosage of atenolol and Imdur. Continue to monitor blood pressure closely. We will bolus normal saline as needed. Patient is asymptomatic. (5) Protein-calorie malnutrition, severe Current Visit: Yes Status: Acute Assessment and plan: Eating better. Albumin remains low. On Remeron to stimulate appetite. Nutrition following. Encouraged oral nutrition. Continue ensure. (6) Dysphagia Current Visit: Yes Status: Resolved Qualifiers: Dysphagia type: unspecified Qualified Code(s): R13.10 - Dysphagia, unspecified - Subjective Interval history: Patient is awake and alert. Eating breakfast. No new complaints at this time. Tolerating diet well. - Constitutional Vitals: Temp Pulse Resp BP Pulse Ox 97.5 F L 108 18 84/63 97 10/14/16 14:02 10/14/16 14:02 10/14/16 14:02 10/14/16 14:02 10/14/16 14:02 General appearance: Present: cooperative, A&O X 3, pleasant, no acute distress, answers questions appropriately - Neck Neck exam general surgery: Present: supple, trachea midline. Absent: lymphadenopathy - Respiratory Respiratory exam: Present: CTAB. Absent: accessory muscle use, rales, rhonchi, wheezes - Cardiovascular Cardiovascular exam: Present: RRR, +S1, +S2. Absent: diastolic murmur, gallop, rubs, systolic murmur - GI/Abdominal GI/Abdominal exam: Present: normal bowel sounds, soft, no peritoneal signs. Absent: distended, tenderness - Extremities Exam Extremities exam: Present: warm, radial pulses palpable and symmetrical. Absent : calf tenderness, cyanotic, pedal edema - Skin Skin exam: Present: dry, intact Internal Medicine: Result - Labs CBC & Chem 7: 10/11/16 03:05 10/12/16 03:55 Labs: Liver Function 10/14/16 Range/Units 04:22 Albumin 2.5 L (3.5-5.0) g/dL - ABG Interpretation ABG results: PT/INR, D-dimer PT 13.4 Seconds (9.4-12.1) H 10/04/16 12:49 - VTE Documentation of Mechanical Device: Intermittent pneumatic compression device Consult Discharge Plan - Plan Instructions: Chronic Obstructive Pulmonary Disease (DC) Referrals: Reid Mensah Jr, SKIN CARE CONSULTANT [Advanced Practice Nurse] - 10/25/16 9:30 am (This visit will be split with Dr. Triana. Thank you) NONE,PCP [Primary Care Provider] -
[2016-10-14] MEDS: Mirtazapine 15 MG TABLET PO SCH (20:13)
[2016-10-15] MEDS: *HR* Heparin 5,000 UNIT/ML VIAL SQ SCH ×2 (06:08→17:49)
[2016-10-15] MEDS: Isosorbide MONOnitrate (24 HR) 60 MG TAB.ER.24H PO SCH (07:54)
[2016-10-15] MEDS: Nicotine 21 MG PATCH.TD24 TD SCH (07:55)
[2016-10-15] MEDS: Aspirin Enteric Coated 81 MG Tablet PO SCH (07:55)
[2016-10-15] MEDS: Folic Acid 1 MG TABLET PO SCH (07:55)
[2016-10-15 09:47] LABS: Basophils % 0.7 %; Eosinophils # 0.1 K/mcL (0.0-0.6); Eosinophils % 2.2 %; Hematocrit 27.1 % (37.5-50.1); Hemoglobin 9.5 g/dL (12.9-16.9); Immature Granulocytes % 0.5 % (0-4); Immature Platelets 2.8 % (1.1-6.1); Lymphocytes # 1.7 K/mcL (0.6-4.6); Lymphocytes % 28.6 %; Mean Corpuscular HGB Conc 35.1 g/dL (31.6-35.5); Mean Corpuscular Hemoglobin 32.5 pg (28.0-33.3); Mean Corpuscular Volume 92.8 fL (83.0-100.0); Mean Platelet Volume 9.5 fL (9.4-12.4); Monocytes # 0.4 K/mcL (0.0-1.3); Monocytes % 5.9 %; Neutrophils # 3.7 K/mcL (1.6-8.9); Platelet Count 205 K/mcL (140-400); Red Blood Count 2.92 M/mcL (4.19-5.50); Red Cell Distribution Width 13.2 % (11.5-14.5); Segmented Neutrophils % 62.1 %
--- NOTE | 2016-10-15 12:42 | Internal Med Progress Note ---
Date of Encounter: 10/15/16 Time of Encounter: 09:25 - Assessment and plan (1) Protein-calorie malnutrition, severe Current Visit: Yes Status: Acute Assessment and plan: Improving appetite. Awaiting placement to skilled rehabilitation. (2) Small cell lung cancer in adult Current Visit: Yes Status: Acute Assessment and plan: Follow-up outpatient with oncology. Patient did have low-grade fever today but WBC count is normal. No signs of infection at this time. Will monitor vital signs. If fever persists, will workup for infection with chest x-ray, urinalysis (3) CAD (coronary artery disease) Current Visit: Yes Status: Chronic Assessment and plan: On aspirin and beta binh and statin Qualifiers: Coronary Disease-Associated Artery/Lesion type: unspecified vessel or lesion type [place] vs. transplanted heart: unspecified whether [place] or transplanted heart Associated angina: with unspecified angina Qualified Code (s): I25.119 - Atherosclerotic heart disease of [place] coronary artery with unspecified angina pectoris (4) COPD (chronic obstructive pulmonary disease) Current Visit: Yes Status: Chronic Assessment and plan: No acute exacerbation Qualifiers: COPD type: unspecified COPD Qualified Code(s): J44.9 - Chronic obstructive pulmonary disease, unspecified (5) Essential hypertension Current Visit: Yes Status: Chronic Assessment and plan: Blood pressure is improved. No longer hypotensive today. (6) Dysphagia Current Visit: Yes Status: Resolved Qualifiers: Dysphagia type: unspecified Qualified Code(s): R13.10 - Dysphagia, unspecified - Subjective Interval history: Awake and alert. Sitting up in bed. Denies any new complaints. Appetite improving overall. No dizziness or lightheadedness. No nausea or vomiting. He did have low-grade fever with temperature of 100.3 this morning. - Constitutional Vitals: Temp Pulse Resp BP Pulse Ox 98.0 F 104 17 123/78 94 10/15/16 10:32 10/15/16 10:32 10/15/16 10:32 10/15/16 10:32 10/15/16 10:32 General appearance: Present: cooperative, A&O X 3, pleasant, no acute distress, answers questions appropriately - Neck Neck exam general surgery: Present: supple, trachea midline. Absent: lymphadenopathy - Respiratory Respiratory exam: Present: CTAB. Absent: accessory muscle use, rales, rhonchi, wheezes - Cardiovascular Cardiovascular exam: Present: RRR, +S1, +S2. Absent: diastolic murmur, gallop, rubs, systolic murmur - Extremities Exam Extremities exam: Present: warm, radial pulses palpable and symmetrical. Absent : calf tenderness, cyanotic, pedal edema Internal Medicine: Result - Labs CBC & Chem 7: 10/15/16 09:16 10/12/16 03:55 Labs: Short CBC 10/15/16 Range/Units 09:16 WBC 5.9 (4.3-11.1) K/mcL Hgb 9.5 L (12.9-16.9) g/dL Hct 27.1 L (37.5-50.1) % Plt Count 205 (140-400) K/mcL Neutrophils # 3.7 (1.6-8.9) K/mcL - ABG Interpretation ABG results: PT/INR, D-dimer PT 13.4 Seconds (9.4-12.1) H 10/04/16 12:49 - VTE Documentation of Mechanical Device: Intermittent pneumatic compression device Consult Discharge Plan - Plan Instructions: Chronic Obstructive Pulmonary Disease (DC) Referrals: Reid Mensah Jr, STUDENT FINANCIAL SERVICES COUNSELOR [Advanced Practice Nurse] - 10/25/16 9:30 am (This visit will be split with Dr. Triana. Thank you) NONE,PCP [Primary Care Provider] -
[2016-10-15] MEDS ORDERED: GuaiFENesin Liq 200 MG/10 ML UDC PO PRN (13:41)
[2016-10-15] MEDS: Mirtazapine 15 MG TABLET PO SCH (20:11)
[2016-10-16] MEDS: *HR* Heparin 5,000 UNIT/ML VIAL SQ SCH ×2 (06:02→17:14)
[2016-10-16] MEDS: Folic Acid 1 MG TABLET PO SCH (07:51)
[2016-10-16] MEDS: Isosorbide MONOnitrate (24 HR) 60 MG TAB.ER.24H PO SCH (07:51)
[2016-10-16] MEDS: Aspirin Enteric Coated 81 MG Tablet PO SCH (07:51)
[2016-10-16] MEDS: Nicotine 21 MG PATCH.TD24 TD SCH (07:52)
--- NOTE | 2016-10-16 12:30 | Internal Med Progress Note ---
Date of Encounter: 10/16/16 Time of Encounter: 09:15 - Assessment and plan (1) Protein-calorie malnutrition, severe Current Visit: Yes Status: Acute Assessment and plan: Improving oral intake. Continue dietary supplementation. On Remeron to stimulate appetite. (2) Small cell lung cancer in adult Current Visit: Yes Status: Acute Assessment and plan: Responded well to chemotherapy. Follow up with oncology after discharge (3) CAD (coronary artery disease) Current Visit: Yes Status: Chronic Assessment and plan: Continue home medications. Qualifiers: Coronary Disease-Associated Artery/Lesion type: unspecified vessel or lesion type [place] vs. transplanted heart: unspecified whether [place] or transplanted heart Associated angina: with unspecified angina Qualified Code (s): I25.119 - Atherosclerotic heart disease of [place] coronary artery with unspecified angina pectoris (4) COPD (chronic obstructive pulmonary disease) Current Visit: Yes Status: Chronic Assessment and plan: Not in acute exacerbation. Continue bronchodilators as needed Qualifiers: COPD type: unspecified COPD Qualified Code(s): J44.9 - Chronic obstructive pulmonary disease, unspecified (5) Essential hypertension Current Visit: Yes Status: Chronic Assessment and plan: Blood pressure is better controlled now. Has not had any further episodes of hypotension. (6) Dysphagia Current Visit: Yes Status: Resolved Qualifiers: Dysphagia type: unspecified Qualified Code(s): R13.10 - Dysphagia, unspecified - Subjective Interval history: Patient is just waking up. Denies any complaints at this time. Does not feel hungry but has been able to eat better. No fever reported overnight. - Constitutional Vitals: Temp Pulse Resp BP Pulse Ox 98.4 F 90 14 103/69 93 10/16/16 10:41 10/16/16 10:41 10/16/16 10:41 10/16/16 10:41 10/16/16 10:41 General appearance: Present: cooperative, A&O X 3, pleasant, no acute distress, answers questions appropriately - Respiratory Respiratory exam: Present: CTAB. Absent: accessory muscle use, rales, rhonchi, wheezes - GI/Abdominal GI/Abdominal exam: Present: normal bowel sounds, soft, no peritoneal signs. Absent: distended, tenderness - Extremities Exam Extremities exam: Present: warm, radial pulses palpable and symmetrical. Absent : calf tenderness, cyanotic, pedal edema - Neurological Exam Neurological exam: Present: alert, oriented X3, no focal deficits. Absent: facial droop, speech deficit - Skin Skin exam: Present: dry, intact Internal Medicine: Result - Labs CBC & Chem 7: 10/15/16 09:16 10/12/16 03:55 - ABG Interpretation ABG results: PT/INR, D-dimer PT 13.4 Seconds (9.4-12.1) H 10/04/16 12:49 - VTE Documentation of Mechanical Device: Intermittent pneumatic compression device Consult Discharge Plan - Plan Instructions: Chronic Obstructive Pulmonary Disease (DC) Referrals: Reid Mensah Jr, FURNITURE SPRAYER [Advanced Practice Nurse] - 10/25/16 9:30 am (This visit will be split with Dr. Triana. Thank you) NONE,PCP [Primary Care Provider] -
[2016-10-16] MEDS: *HR* FentaNYL PATCH 12 MCG PATCH TD SCH (13:07)
[2016-10-16] MEDS: Mirtazapine 15 MG TABLET PO SCH (20:28)
[2016-10-17] MEDS: *HR* Heparin 5,000 UNIT/ML VIAL SQ SCH ×2 (06:26→17:56)
[2016-10-17] MEDS: Aspirin Enteric Coated 81 MG Tablet PO SCH (09:37)
[2016-10-17] MEDS: Isosorbide MONOnitrate (24 HR) 60 MG TAB.ER.24H PO SCH (09:38)
[2016-10-17] MEDS: Nicotine 21 MG PATCH.TD24 TD SCH (09:38)
[2016-10-17] MEDS: Folic Acid 1 MG TABLET PO SCH (09:38)
--- NOTE | 2016-10-17 13:55 | Internal Med Progress Note ---
Date of Encounter: 10/17/16 Time of Encounter: 10:35 - Assessment and plan (1) Protein-calorie malnutrition, severe Current Visit: Yes Status: Acute Assessment and plan: Improving. Tolerating diet better. Awaiting placement to skilled rehabilitation (2) Small cell lung cancer in adult Current Visit: Yes Status: Acute Assessment and plan: Received 1 cycle of chemotherapy. We will continue to follow up with cancer Center for further management (3) CAD (coronary artery disease) Current Visit: Yes Status: Chronic Assessment and plan: No acute issues Qualifiers: Coronary Disease-Associated Artery/Lesion type: unspecified vessel or lesion type [place] vs. transplanted heart: unspecified whether [place] or transplanted heart Associated angina: with unspecified angina Qualified Code (s): I25.119 - Atherosclerotic heart disease of [place] coronary artery with unspecified angina pectoris (4) COPD (chronic obstructive pulmonary disease) Current Visit: Yes Status: Chronic Assessment and plan: On when necessary bronchodilators Qualifiers: COPD type: unspecified COPD Qualified Code(s): J44.9 - Chronic obstructive pulmonary disease, unspecified (5) Essential hypertension Current Visit: Yes Status: Chronic Assessment and plan: Well-controlled (6) Dysphagia Current Visit: Yes Status: Resolved Qualifiers: Dysphagia type: unspecified Qualified Code(s): R13.10 - Dysphagia, unspecified - Subjective Interval history: Patient is awake and alert. He ate breakfast today. No acute issues. No new complaints at this time. - Constitutional Vitals: Temp Pulse Resp BP Pulse Ox 98.2 F 92 17 112/77 100 10/17/16 11:02 10/17/16 11:02 10/17/16 11:02 10/17/16 11:02 10/17/16 11:02 General appearance: Present: cooperative, A&O X 3, pleasant, no acute distress, answers questions appropriately - Neck Neck exam general surgery: Present: supple, trachea midline. Absent: lymphadenopathy - Respiratory Respiratory exam: Present: CTAB. Absent: accessory muscle use, rales, rhonchi, wheezes - Cardiovascular Cardiovascular exam: Present: RRR, +S1, +S2. Absent: diastolic murmur, gallop, rubs, systolic murmur - GI/Abdominal GI/Abdominal exam: Present: normal bowel sounds, soft, no peritoneal signs. Absent: distended, tenderness - Extremities Exam Extremities exam: Present: warm, radial pulses palpable and symmetrical. Absent : calf tenderness, cyanotic, pedal edema - Neurological Exam Neurological exam: Present: alert, oriented X3, no focal deficits. Absent: facial droop, speech deficit - Skin Skin exam: Present: dry, intact Internal Medicine: Result - Labs CBC & Chem 7: 10/15/16 09:16 10/12/16 03:55 - ABG Interpretation ABG results: PT/INR, D-dimer PT 13.4 Seconds (9.4-12.1) H 10/04/16 12:49 - VTE Documentation of Mechanical Device: Intermittent pneumatic compression device Consult Discharge Plan - Plan Instructions: Chronic Obstructive Pulmonary Disease (DC) Referrals: Reid Mensah Jr, LACTATION SPECIALIST [Advanced Practice Nurse] - 10/25/16 9:30 am (This visit will be split with Dr. Triana. Thank you) NONE,PCP [Primary Care Provider] -
[2016-10-17] MEDS: Mirtazapine 15 MG TABLET PO SCH (20:38)
[2016-10-18] MEDS: *HR* Heparin 5,000 UNIT/ML VIAL SQ SCH ×2 (06:17→18:11)
[2016-10-18] MEDS ORDERED: Isosorbide MONOnitrate (24 HR) 30 MG TAB.ER.24H PO SCH (09:00)
[2016-10-18] MEDS: Nicotine 21 MG PATCH.TD24 TD SCH (09:23)
[2016-10-18] MEDS: Aspirin Enteric Coated 81 MG Tablet PO SCH (09:23)
[2016-10-18] MEDS: Folic Acid 1 MG TABLET PO SCH (09:23)
[2016-10-18 10:12] VITALS: BP 138/89
--- NOTE | 2016-10-18 14:43 | Discharge Summary ---
<Allison Minaya - Last Filed: 10/18/16 17:27> Date of Encounter: 10/18/16 Time of Encounter: 14:41 - Discharge Diagnosis (1) Small cell lung cancer in adult Priority: Primary Status: Acute Comments: Patient's lung biopsy showed small cell carcinoma of the lung. Head CT and abdominal pelvic CT showed no metastasis. Patient agreed to chemotherapy. Patient completed cycle 1 of cisplatin 60 mg/m2 and etoposide 60 mg/m2 on . Clinically, he responded well with decrease swelling and dysphagia. Patient progressed from not eating to eating soft foods. No evidence of tumor lysis syndrome. Follow-up with Dr. Triana 1-2 weeks after discharge. (2) Protein-calorie malnutrition, severe Priority: Primary Status: Acute Comments: Patient was on TPN for 6 days but is now tolerating soft foods. Patient is supplementing diet with ensure 3 times a day and Magic cup at bedtime. Patient' s albumin has been rising and was 2.9 today. Patient for the last 3 days has been eating 100% of his meals. (3) Mediastinal lymphadenopathy Priority: Primary Status: Acute Comments: secondary to small cell lung cancer. 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 (5) Lactic acid acidosis Priority: Primary Status: Resolved Comments: On presentation 10/06, patient had an increased lactic acid of 2.6 which resolved to 1.7 that same day. (6) Dysphagia Priority: Primary Status: Resolved Comments: Dysphagia secondary to edema and lymphadenopathy. Patient's swallow study showed no motility problems and no signs of aspiration. Patient was placed on TPN for 6 days. Dysphagia improved significantly after chemotherapy. Patient was eating 100% of his soft meals at the time of discharge. Patient was supplementing with ensure and Magic cups for increased caloric intake. Qualifiers: Dysphagia type: unspecified Qualified Code(s): R13.10 - Dysphagia, unspecified (7) COPD (chronic obstructive pulmonary disease) Priority: Secondary Status: Chronic Comments: No acute exasperation of COPD during this hospital stay. Patient did not use when necessary albuterol during the hospital stay. Follow-up with primary care outpatient. Qualifiers: COPD type: unspecified COPD Qualified Code(s): J44.9 - Chronic obstructive pulmonary disease, unspecified (8) Essential hypertension Priority: Secondary Status: Chronic Comments: Patient was normotensive to hypotensive throughout hospital course. Patient's atenolol was decreased to 25mg from home medication of 75mg. (9) CAD (coronary artery disease) Priority: Secondary Status: Chronic Comments: Stable with no complications during hospital stay. Patient's home medications of a beta binh, statin, and aspirin [facility]. Qualifiers: Coronary Disease-Associated Artery/Lesion type: unspecified vessel or lesion type [place] vs. transplanted heart: unspecified whether [place] or transplanted heart Associated angina: with unspecified angina Qualified Code (s): I25.119 - Atherosclerotic heart disease of [place] coronary artery with unspecified angina pectoris - Discharge Medications Prescriptions: GuaiFENesin/Dextromethorphan [Robitussin/Dm] 10 ml PO Q6HR PRN #100 ml PRN Reason: Cough Allopurinol [Zyloprim 300 MG] 300 mg PO DAILY #14 tab Atenolol [Tenormin] 25 mg PO DAILY #14 tab FentaNYL PATCH [Duragesic] 12 mcg TD Q72H #5 Isosorbide MONOnitrate (24 HR) [Imdur] 30 mg PO DAILY #14 Mirtazapine [Remeron] 15 mg PO HS #14 tab Nicotine Patch [Nicoderm] 21 mg TD DAILY #30 Home Medications: Aspirin [Lo-Dose Aspirin EC] 81 mg PO DAILY 07/16/16 [History] Atorvastatin [Lipitor] 40 mg PO HS 07/16/16 [History] Clopidogrel Bisulfate [Plavix] 75 mg PO DAILY 07/16/16 [History] Pantoprazole Sodium [Protonix] 40 mg PO DAILY 07/16/16 [History] Albuterol Sulfate [Ventolin Hfa] 2 puff IH Q4H PRN 10/04/16 [History] Folic Acid 1 mg PO DAILY 10/04/16 [History] Montelukast [Singulair] 10 mg PO DAILY PRN 10/04/16 [History] Nitroglycerin [Nitrostat] 0.4 mg SL Q5M PRN 10/04/16 [History] Ropinirole HCl [Requip] 2 mg PO DAILY 10/04/16 [History] amLODIPine [Norvasc] 5 mg PO DAILY 10/04/16 [History] Allopurinol [Zyloprim 300 MG] 300 mg PO DAILY #14 tab 10/18/16 [Rx] Atenolol [Tenormin] 25 mg PO DAILY #14 tab 10/18/16 [Rx] FentaNYL PATCH [Duragesic] 12 mcg TD Q72H #5 10/18/16 [Rx] GuaiFENesin/Dextromethorphan [Robitussin/Dm] 10 ml PO Q6HR PRN #100 ml 10/18/16 [Rx] Isosorbide MONOnitrate (24 HR) [Imdur] 30 mg PO DAILY #14 10/18/16 [Rx] Mirtazapine [Remeron] 15 mg PO HS #14 tab 10/18/16 [Rx] Nicotine Patch [Nicoderm] 21 mg TD DAILY #30 10/18/16 [Rx] Allergies/Adverse Reactions: 3 Allergy/AdvReac Type Severity Reaction Status Date / Time amlodipine AdvReac See Verified 07/16/16 16:21 Comments Date of admission: 10/08/16 13:47 Primary care physician: PCP NONE Consults: 10/12/16 09:24 Consult to Physical Therapy [CONS] Routine Comment: Evaluate, develop and implement POC Reason for Consult: re-evaluation for home health need instead of rehab OT [Consult to Occupational Therapy] [CONS] Routine Comment: Evaluate, develop and implement POC Reason for Consult: re-evaluation for home health need instead of rehab - Patient Status Disposition: Transfer SNF Condition: Good Functional capacity at discharge: uses cane/walker Overall status at discharge: patient is progressing back to baseline - Discharge Instructions Instructions: Chronic Obstructive Pulmonary Disease (DC) Follow Up With: Reid Mensah Jr, [employer] [Advanced Practice Nurse] - 10/25/16 9:30 am (This visit will be split with Dr. Triana. Thank you) NONE,PCP [Primary Care Provider] - Additional Instructions: Patient should follow up with oncology in 1-2 weeks after discharge. Continue soft diet until comfortable to increase to solid foods without pain with swallowing. - Diet and Activity Activity: ambulate only with your walker (advance diet as tolerated. ) Diet: advance to your usual diet Hospital course: Mr. Shah is a 56 year old male with a past medical history of CAD, COPD, hypertension, chronic smoker presented to the ED M from home with complaints of neck swelling and trouble swallowing for the past 2 weeks and was found to have small cell lung cancer. Patient had 2 weeks unable to swallow his pills or food. CT of chest and CT of neck showed mediastinal mass with lymphadenopathy of cervical, supraclavicular and mediastina. Biopsy of lung showed high grade neuroendocrine carcinoma consistent with small cell carcinoma of the lung. Head CT and abdominal/pelvic CT showed no metastasis. He completed cycle 1 of chemotherapy of cisplatin 60 mg/m2 and etoposide 60 mg/m2 on 10/11/16. Patient was monitored for tumor lysis syndrome and put on allopurinol and tolerated first chemo session well. Due to Patient's dysphagia throughout the course swallow study was conducted and showed no aspiration and normal motility. Patient was put on TPN for 6 days and progressed throughout the hospital stay to tolerating soft foods and PO pills before discharge. Patient can advance diet as tolerated. Patient was became mildly hypotensive with a systolic in the 90s, so patient's Atenolol was decreased from 75mg to 25mg in the hospital and at discharge. Changes in home medications included the decrease in Atenolol to 25mg. Fentanyl patch given for pain. Patient was directed to f/u with Dr. Triana in 1-2 weeks after discharge. Patient was discharged to a SNF. . CT neck: Numerous enlarged cervical, supraclavicular, and mediastinal lymph nodes with central low attenuation consistent with necrosis. Findings are suspicious for lymphoma. 2. Asymmetric dilatation of the left laryngeal ventricle and pyriform sinus compatible with vocal cord paralysis. CT chest: Extensive confluent masslike adenopathy is present involving the mediastinum, left hilum, and supraclavicular regions bilaterally. The mass encases numerous mediastinal structures, with mild to moderate narrowing of the left mainstem bronchus and the left main pulmonary artery. The differential favors lymphoma versus metastatic disease, such as from squamous cell carcinoma. - Time Spent with Patient Total time spent providing and/or coordinating discharge services: - Constitutional Vitals: Temp Pulse Resp BP Pulse Ox 97.8 F 106 17 138/89 92 10/18/16 10:09 10/18/16 10:09 10/18/16 10:09 10/18/16 10:10/18/16 10:09 General appearance: Present: cooperative, A&O X 3, pleasant, no acute distress, answers questions appropriately Exam: Constitutional: Alert, in no acute distress Head: Normocephalic, atraumatic, normal contour and symmetric, no masses, lesions or scars Neck: lymphadenopathy of neck bilaterally Heart: Normal, regular rate and rhythm, no murmurs Lungs: Clear to auscultation, no wheezes, rales, or rhonchi Abdomen: Soft, nondistended, nontender, and no masses palpable, bowel sounds present and normal, no guarding or rigidity. Extremities: Picc line in R arm, No clubbing, cyanosis, or edema, radial pulse + 2/4, capillary refill <2sec. Skin: Skin warm and dry, no lesions, no rashes, no jaundice Neurologic: Cranial nerves II through XII grossly intact, no focal deficits, strength 5/5. Psych: Cooperative with exam, good eye contact, cognitive function intact, judgment good insight good, speech clear, thought process logical, and goal directed - VTE Documentation of Mechanical Device: Intermittent pneumatic compression device <Hu Gamino - Last Filed: 10/18/16 17:59> Date of Encounter: 10/18/16 Date of admission: 10/08/16 13:47 Primary care physician: PCP NONE Consults: 10/12/16 09:24 Consult to Physical Therapy [CONS] Routine Comment: Evaluate, develop and implement POC Reason for Consult: re-evaluation for home health need instead of rehab OT [Consult to Occupational Therapy] [CONS] Routine Comment: Evaluate, develop and implement POC Reason for Consult: re-evaluation for home health need instead of rehab Hospital course: Mr. Shah is a 56 year old male - Time Spent with Patient Total time spent providing and/or coordinating discharge services: - Constitutional Vitals: Temp Pulse Resp BP Pulse Ox 97.8 F 106 17 138/89 92 10/18/16 10:09 10/18/16 10:09 10/18/16 10:09 10/18/16 10:09 10/18/16 10:09 - Attending Attestation I examined this patient and my medical decision-making was reviewed with the Resident Physician. I agree with the documented findings, disposition and treatment plan as described except to the extent set forth below. Stable for discharge today. Temperature 97.8, heart rate 106, blood pressure 138/89, O2 sat 92%. Heart S1-S2 positive no murmurs or rubs. Lungs clear to auscultation. Abdomen soft nontender no masses or guarding.
--- NOTE | 2016-10-18 17:53 | Physician Discharge Referral ---
ExtendedCare Referral Info Provider in Charge after Transfer: PCP Institutional Level of Care: Skilled - Transfer Medications Prescriptions: GuaiFENesin/Dextromethorphan [Robitussin/Dm] 10 ml PO Q6HR PRN #100 ml PRN Reason: Cough Allopurinol [Zyloprim 300 MG] 300 mg PO DAILY #14 tab Atenolol [Tenormin] 25 mg PO DAILY #14 tab FentaNYL PATCH [Duragesic] 12 mcg TD Q72H #5 Isosorbide MONOnitrate (24 HR) [Imdur] 30 mg PO DAILY #14 Mirtazapine [Remeron] 15 mg PO HS #14 tab Nicotine Patch [Nicoderm] 21 mg TD DAILY #30 Home Medications: Aspirin [Lo-Dose Aspirin EC] 81 mg PO DAILY 07/16/16 [History] Atorvastatin [Lipitor] 40 mg PO HS 07/16/16 [History] Clopidogrel Bisulfate [Plavix] 75 mg PO DAILY 07/16/16 [History] Pantoprazole Sodium [Protonix] 40 mg PO DAILY 07/16/16 [History] Albuterol Sulfate [Ventolin Hfa] 2 puff IH Q4H PRN 10/04/16 [History] Folic Acid 1 mg PO DAILY 10/04/16 [History] Montelukast [Singulair] 10 mg PO DAILY PRN 10/04/16 [History] Nitroglycerin [Nitrostat] 0.4 mg SL Q5M PRN 10/04/16 [History] Ropinirole HCl [Requip] 2 mg PO DAILY 10/04/16 [History] amLODIPine [Norvasc] 5 mg PO DAILY 10/04/16 [History] Allopurinol [Zyloprim 300 MG] 300 mg PO DAILY #14 tab 10/18/16 [Rx] Atenolol [Tenormin] 25 mg PO DAILY #14 tab 10/18/16 [Rx] FentaNYL PATCH [Duragesic] 12 mcg TD Q72H #5 10/18/16 [Rx] GuaiFENesin/Dextromethorphan [Robitussin/Dm] 10 ml PO Q6HR PRN #100 ml 10/18/16 [Rx] Isosorbide MONOnitrate (24 HR) [Imdur] 30 mg PO DAILY #14 10/18/16 [Rx] Mirtazapine [Remeron] 15 mg PO HS #14 tab 10/18/16 [Rx] Nicotine Patch [Nicoderm] 21 mg TD DAILY #30 10/18/16 [Rx] Allergies/Adverse Reactions: 3 Allergy/AdvReac Type Severity Reaction Status Date / Time amlodipine AdvReac See Verified 07/16/16 16:21 Comments - Respiratory Orders Smoking Cessation: Smoking cessation has been advised. For more information, call the [place] Tobacco Quit Line at 1-215-ZLVO-NOW. - Lab Orders Lab Orders: CBC - Ancillary Orders May use pressure relief devices daily prn - Advance Directives Code Status: Full Code - Mobility Orders Ambulate - Rehabiliation Orders Rehab Orders: ROM Exercises, Evaluation for Physical Therapy, Evaluation for Occupational Therapy - Treatments Skin tear care topically daily PRN per policy List/Other: - Central line dressing changes weekly - Flush PICC line with 10 mL's of normal saline every shift - Diet Orders Cardiac CERTIFICATION: I certify that the transfer of the above named patient to an Extended Care Facility is necessary for the continuing treatment of the diagnosis listed. The above information is true and accurate reflection of patient's current condition. Confidential - Redisclosure prohibited without a patient's written consent.
== END 2016-10-18 18:16 | DRG 829 ==
LOC: 3ANU 12:18 → EMEROO 12:18 → 3ANU 16:10 → SUATTDRO 10-08 13:47
PROVIDERS: ADMIT Registered Nurse; ATTEND Internal Medicine
PROC: IRLYMPH (2016-10-06 11:15)

== ENCOUNTER 2018-04-08 22:58 | Inpatient (IN) ==
[2018-04-09] MEDS ORDERED: 0.9 % Sodium Chloride 1,000 ML IVC SCH ×2 (02:45→13:00)
--- NOTE | 2018-04-09 02:50 | Internal Med History&Physical ---
Date of Encounter: 04/09/18 Time of Encounter: 02:46 Internal Medicine - H&P: HPI Chief complaint: SOB Admitted From: Emergency Dept Plans for Post Hospital Care: Home History of present illness: Mata Shah is a 58 year old man with metastatic left lung cancer complicated by malignant effusion and cardiac tamponade that required urgent pericardial window and left chest tube placement during his last admission 4 weeks ago. He also has atrial fibrillation, COPD and coronary artery disease while he continues to smoke. He presents now on transfer from [facility] where he went to with complaints of increasing shortness of breath and productive cough. He also reported feeling feverish and having chills with generalized malaise. He was seen to be in respiratory distress and received nebulizer treatment. He was also somewhat hypotensive and he responded to fluid resuscitation. His initial lactate was 2.5 and down to 1.2 on repeat. He was started on empiric abx after x-ray revealed worsening left parahilar and upper lobe opacities compatible with pneumonia as reviewed by me. On arrival here he reports feeling better but continues to have productive cough. He denies chest pain at this time. Past Med Surg Social Fam HX - Past Medical History Medical history: cancer, COPD, coronary artery disease, hyperlipidemia, hype rtension, other Additional medical history: NOW BLOOD PRESSURE IS LOW AND IS ON MEDICATION TO BRING IT UP. Psychiatric history: no psych history - Past Surgical History Surgical History: cholecystectomy, orthopedic, other, other Additional surgical history: back surgery - Social History Smoking Status: Current every day smoker Packs per day: less than a pack day Smokeless Tobacco Status: No Alcohol use: none Drug use: none - Family History Father Living Status: Hx Family Cardiac Disorders: No Hx Family Respiratory Disorders: Yes Hx Family Cancer: Yes (; hx cancer but patient not sure what kind ) Hx Family GI Disorders: No Hx Family Endocrine Disorder: No Hx Family Neuromuscular Disorders: No Hx Family Neurologic Disorders: No Hx Family HEENT Disorders: No Hx Family Autoimmune Disorders: No Internal Medicine - H&P: Meds Aspirin [Lo-Dose Aspirin EC] 81 mg PO DAILY 07/16/16 [History] Atorvastatin [Lipitor] 40 mg PO HS 07/16/16 [History] Pantoprazole Sodium [Protonix] 40 mg PO DAILY 07/16/16 [History] Montelukast [Singulair] 10 mg PO DAILY PRN 10/04/16 [History] Nitroglycerin [Nitrostat] 0.4 mg SL Q5M PRN 10/04/16 [History] Pregabalin [Lyrica] 100 mg PO BID 10/24/17 [History] Apixaban [Eliquis] 5 mg PO BID 11/20/17 [History] Cyanocobalamin (Vitamin B-12) [Vitamin B12] 1 tab PO DAILY #30 tab 12/27/17 [Rx] Albuterol Sulfate [Albuterol Inhaler] 2 puff IH Q4HR PRN #1 hfa.aer.[id number] 01/26/18 [Rx] Celecoxib [Celebrex] 200 mg PO DAILY 01/29/18 [History] Oxycodone HCl [Oxycodone HCl ER] 15 mg PO QID 01/29/18 [History] Amitriptyline [Elavil] 25 mg PO HS 03/05/18 [History] GuaiFENesin ER [Mucinex] 600 mg PO BID MDD CONGESTION 03/05/18 [History] LORazepam [Ativan] 0.5 mg PO HS 03/05/18 [History] Prochlorperazine Maleate [Compazine] 10 mg PO QAM 03/05/18 [History] Tizanidine HCl 4 mg PO TID 03/05/18 [History] Midodrine [ProAmatine] 5 mg PO 0800,1200,1700 #90 tablet 03/17/18 [Rx] Allergy/AdvReac Type Severity Reaction Status Date / Time amlodipine AdvReac See Verified 02/28/18 15:24 Comments All Systems PM: A 10-system review of systems was performed and is negative for pertinent findings except as documented above in the HPI. - Constitutional Vitals: Temp Pulse Resp BP Pulse Ox 98.1 F 104 18 92/60 97 04/09/18 00:37 04/09/18 00:37 04/09/18 00:37 04/09/18 00:37 04/09/18 00:37 Exam: Vitals: Reviewed General: Emaciated man sitting comfortably in bed in NAD Skin: Pale, dry. HEENT: Dry mucous membranes. (+) conjunctivae pallor. Neck: No JVD. No carotid bruits. No palpable thyroid. Chest: Reduced breath sounds in the right lung base. Heart: Normal S1 & S2; rhythmic. Abdomen: Non-distended, soft and non-tender to palpation. No peritoneal reaction. Extremities: (+) clubbing. No cyanosis or edema. No calf tenderness. Normal distal pulses. Neurological: Awake, alert and oriented to person, place and time. No focal deficits. Psych: Affect appropriate. - Assessment and plan (1) Pneumonia Current Visit: Yes Status: Acute Assessment and plan: Seen to have a notable new infiltrate on x-ray. There may be a component of persistent pleural effusion as well noting the progression from his discharge x- ray. Will keep him on empiric antibiotics for now given his recent hospitalizations and procedures performed putting him at risk for [place]. Will obtain a nasal swab for MRSA surveillance, blood and sputum cultures. Qualifiers: Pneumonia type: due to unspecified organism Laterality: right Lung location: lower lobe of lung Qualified Code(s): J18.1 - Lobar pneumonia, unspecified organism (2) Lung cancer Current Visit: Yes Status: Acute Assessment and plan: Metastatic small cell lung cancer. He progressed through 2 lines of chemotherapy. Completed 4 cycles of Ipilumumab and Nivolumab on 02/28/2018. CT abdomen and pelvis 02/14/2018 showed progression mainly in the left supraclavicular, mediastinal lymph nodes and left hilar mass. 5 minutes were spent counseling and educating the patient on his smoking habit. manager support services and resources were made available. Qualifiers: Laterality: unspecified laterality Lung location: unspecified part of lung Qualified Code(s): C34.90 - Malignant neoplasm of unspecified part of unspecified bronchus or lung (3) Atrial fibrillation Current Visit: Yes Status: Chronic Assessment and plan: Currently rate controlled. Seen to be on anticoagulation. Qualifiers: Atrial fibrillation type: chronic Qualified Code(s): I48.2 - Chronic atrial fibrillation (4) CAD (coronary artery disease) Current Visit: Yes Status: Chronic Assessment and plan: Clinically stable with no signs of acute disease. Qualifiers: Coronary Disease-Associated Artery/Lesion type: [place] artery [place] vs. transplanted heart: [place] heart Associated angina: without angina Qualified Code(s): I25.10 - Atherosclerotic heart disease of [place] coronary artery without angina pectoris (5) COPD (chronic obstructive pulmonary disease) Current Visit: Yes Status: Chronic Assessment and plan: Will place the patient on nebulizer therapy for symptomatic relief. No indication for steroids at this time. Qualifiers: COPD type: emphysema Emphysema type: panlobular Qualified Code(s): J43.1 - Panlobular emphysema (6) Essential hypertension Current Visit: Yes Status: Chronic Assessment and plan: Will resume home medications once verified. - Time Spent With Patient Total time spent is greater than 50% in coordination of care (as documented) at patient's floor/unit and/or counseling patient: Greater than 35 minutes
[2018-04-09] MEDS: Ipratropium/Albuterol Neb 3 ML IH SCH ×4 (04:18→16:26)
[2018-04-09 04:36] LABS: Hematocrit 27.7 % (37.5-50.1); Hemoglobin 9.1 g/dL (12.9-16.9); Immature Granulocytes % 0.4 % (0-4); Lymphocytes # 0.4 K/mcL (0.6-4.6); Lymphocytes % 7.3 %; Mean Corpuscular HGB Conc 32.9 g/dL (31.6-35.5); Mean Corpuscular Hemoglobin 31.8 pg (28.0-33.3); Mean Corpuscular Volume 96.9 fL (83.0-100.0); Mean Platelet Volume 10.3 fL (9.4-12.4); Monocytes # 0.1 K/mcL (0.0-1.3); Monocytes % 2.4 %; Neutrophils # 4.8 K/mcL (1.6-8.9); Platelet Count 147 K/mcL (140-400); Red Blood Count 2.86 M/mcL (4.19-5.50); Red Cell Distribution Width 16.2 % (11.5-14.5); Segmented Neutrophils % 89.9 %
[2018-04-09 04:48] LABS: BUN/Creatinine Ratio 22 (6-26); Blood Urea Nitrogen 16 mg/dL (8-23); Carbon Dioxide 23 mEq/L (23-29); Chloride 105 mEq/L (98-107); Glucose 166 mg/dL (70-105); Osmolality,Calculated 283 (280-300); Sodium 134 mEq/L (136-145); eGFR For Non-African Americans > 60 (> 60)
[2018-04-09] MEDS ORDERED: Nitroglycerin 0.4 MG TAB.SUBL SL PRN (07:33)
--- NOTE | 2018-04-09 07:39 | Event Note ---
Date of Encounter: 04/09/18 Time of Encounter: 07:30 Seen and assessed. Agree with plan per night team Admitted for HCAP Plan Likely bacterial HCAP. Continue vanc and zosyn. Follow cultures. Obtain CT chest Metastatic lung cancer. Outpatient follow up Recent pericardial effusion s/p pericardial window. Follow up CT chest
[2018-04-09] MEDS ORDERED: Cyanocobalamin (B-12) 1,000 MCG TABLET PO SCH (09:00)
[2018-04-09] MEDS ORDERED: NON-FORMULARY MEDICATION 1 EACH EACH (Oxycodone Hcl [Oxycodone Hcl Er] 15 MG) PO SCH (09:00)
[2018-04-09] MEDS ORDERED: TIZANIDINE HCL 4 MG PO SCH (09:00)
[2018-04-09] MEDS: Piperacillin/Tazobactam 3.375 GM in 0.9 % Sodium Chloride Mini Bag 100 ML IVPB SCH ×3 (09:12→22:38)
[2018-04-09] MEDS ORDERED: tiZANidine 4 MG TABLET PO PRN (09:18)
--- NOTE | 2018-04-09 09:25 | Palliative - Consult Note ---
Date of Encounter: 04/09/18 Time of Encounter: 08:40 - Assessment and Plan (1) Pain Current Visit: Yes Status: Chronic Assessment and plan: Patient reports continued pain in chest and back; chronic type pain. Reported 09/29. Oxycodone ER 15 mg QID and Lyrica scheduled. Continue Tizanidine PRN. Will add Oxycodone PRN for breakthrough pain. (2) Goals of care, counseling/discussion Current Visit: Yes Status: Acute Assessment and plan: Met with patient alongside Dr. Sánchez. No family present. Reviewed current cancer treatment plan, palliative in nature. Patient reports has scheduled visit with Dr. Triana set for tomorrow. Requested Oncology see patient while in hospital, prior to making termite control representative goals of care. Educated on hospice program, DME, Aides, Nurses, and symptom control. Interested in thinking about program. Reviewed CODE STATUS. Desires to remain FULL CODE at this time. Explained different CODE STATUS options in [place]; verbalized understanding. Notified Dr. Wolfe of patient's desire to see Oncology. Dr. Wolfe is placing consult. Patient requested his brother be notified whether Oncology would see patient while admitted. Also, requested to arrange a time tomorrow to review goals of care with brother. Called Jason Shah (brother) [phone]. Arranged meeting with patient's brother today at 2 pm. [phone]: Met with patient, brother Jason, and sister Edith present at bedside. Reviewed patient's current clinical status with recurrent hospital stays and extensive SCLC with mets. Patient's brother presented idea of discharge to [facility] for rehab prior to discharge home. Expressed interest in idea of hospice care at home post rehab. Would like to hear from Oncology before making final discharge plans. CODE STATUS changed to DNRCCA, patient is ok with short term intubation. State form completed. Patient reports brother Jason is MPOA. Upon exiting of room, Tova Winter CNP arrived to bedside to discuss patient's clinical status and plans from Oncology perspective. Palliative care will continue to follow, for assistance in discharge planning and symptom control. (3) Pneumonia Current Visit: Yes Status: Acute Assessment and plan: Treatment per Primary team. IV Zosyn and Vancomycin. Qualifiers: Pneumonia type: due to unspecified organism Laterality: right Lung location: lower lobe of lung Qualified Code(s): J18.1 - Lobar pneumonia, unspecified organism (4) Pleural effusion Current Visit: No Status: Acute (5) Small cell lung cancer in adult Current Visit: No Status: Chronic Assessment and plan: Oncology consulted; per patient request. Palliative-CN HPI - Data of Consult Patient: nesha to [facility] Consult date: 04/09/18 Requesting Physician: Laura Arroyo MD Primary Care Provider: Lucie Aragon CNP - Consult Narrative Palliative Care/Comfort Measures: Palliative care Reason for consult: Metastatic Lung Cancer; Goals of care/CODE STATUS History of present illness: Mr. Shah is a 58 year old male arrived to [facility] on 04/08/18 with increased dyspnea times 24 hours. Patient had recently been admitted to [facility] for pericardial and pleural effusions, requiring surgical intervention and chest tubes. Patient diagnosed with HCAP and being treated with IV antibiotics (Zosyn and Vancomycin). PMH: Small Cell Lung cancer, COPD, coronary artery disease, hyperlipidemia, and hypertension. Patient has been a patient of Dr. Triana since February 2017, diagnosed with extensive SCLC in 09/2016; patient reports initially told "got it all but then it returned." Per review of Dr. Triana's note, patient and brother unsure of plan for continued treatment, recommend palliative immunotherapy as patient is not tolerating chemotherapy. Chest x-ray at this visit showing worsening opacities and small left pleural effusion. Palliative care consulted for Metastatic lung cancer; goals of care and CODE STATUS. Patient lying in bed resting with eyes closed upon arrival for assessment. Patient is alert and oriented times 3. Patient easily aroused with verbal and tactile stimulation. No family present at bedside. Patient denies nausea, vomiting. Patient reports anxiety; explains under control without medications. Patient reports back pain, rated an 8/10, described as painful and constant times 30 years (injured working on car), reports Scheduled oxycodone helps, but the pain never goes away. Denies constipation. CC: Laura Arroyo MD - Time Spent with Patient Time: Total time spent is greater than 50% in coordination of care (as documented) at patient's floor/unit and/or counseling patient: Time with patient: 75 minutes (10 minute chart review, 30 minute discussion with patient regarding goals of care/CODE STATUS, 5 minute followup with primary for request of Oncology consult. 40 minute meeting with patient, patient's brother (CHAD) and sister Edith) Past Med Surg Social Fam HX - Past Medical History Medical history: cancer, COPD, coronary artery disease, hyperlipidemia, hypertension, other Additional medical history: NOW BLOOD PRESSURE IS LOW AND IS ON MEDICATION TO BRING IT UP. Psychiatric history: no psych history - Past Surgical History Surgical History: cholecystectomy, orthopedic, other, other Additional surgical history: back surgery - Social History Smoking Status: Current every day smoker Packs per day: less than a pack day Smokeless Tobacco Status: No Alcohol use: none Drug use: none - Family History Father Living Status: Hx Family Cardiac Disorders: No Hx Family Respiratory Disorders: Yes Hx Family Cancer: Yes (; hx cancer but patient not sure what kind ) Hx Family GI Disorders: No Hx Family Endocrine Disorder: No Hx Family Neuromuscular Disorders: No Hx Family Neurologic Disorders: No Hx Family HEENT Disorders: No Hx Family Autoimmune Disorders: No Medications and Allergies Aspirin [Lo-Dose Aspirin EC] 81 mg PO DAILY 07/16/16 [History] Atorvastatin [Lipitor] 40 mg PO HS 07/16/16 [History] Pantoprazole Sodium [Protonix] 40 mg PO DAILY 07/16/16 [History] Montelukast [Singulair] 10 mg PO DAILY PRN 10/04/16 [History] Nitroglycerin [Nitrostat] 0.4 mg SL Q5M PRN 10/04/16 [History] Pregabalin [Lyrica] 100 mg PO BID 10/24/17 [History] Apixaban [Eliquis] 5 mg PO BID 11/20/17 [History] Cyanocobalamin (Vitamin B-12) [Vitamin B12] 1 tab PO DAILY #30 tab 12/27/17 [Rx] Albuterol Sulfate [Albuterol Inhaler] 2 puff IH Q4HR PRN #1 hfa.aer.ad 01/26/18 [Rx] Celecoxib [Celebrex] 200 mg PO DAILY 01/29/18 [History] Amitriptyline [Elavil] 25 mg PO HS 03/05/18 [History] GuaiFENesin ER [Mucinex] 600 mg PO BID PRN 03/05/18 [History] LORazepam [Ativan] 0.5 mg PO HS 03/05/18 [History] Prochlorperazine Maleate [Compazine] 10 mg PO QAM PRN 03/05/18 [History] Tizanidine HCl 4 mg PO HS 03/05/18 [History] Midodrine [ProAmatine] 5 mg PO 0800,1200,1700 #90 tablet 03/17/18 [Rx] Oxycodone HCl 15 mg PO QID 04/09/18 [History] Allergy/AdvReac Type Severity Reaction Status Date / Time amlodipine AdvReac See Verified 02/28/18 15:24 Comments - Constitutional Constitutional ROS PAL: chills, fatigue, fever(s), lethargy, malaise, no decreased appetite, no anorexia, no frequent falls, no weight loss - Cardiovascular Cardiovascular ROS: chest pain, dyspnea on exertion, no pedal edema - Respiratory Respiratory: cough, no hemoptysis - Gastrointestinal Gastrointestinal: no constipation, no diarrhea, no nausea, no vomiting - Musculoskeletal Musculoskeletal ROS IM: back pain, myalgias, neck pain - Integumentary ROS Integumentary: dry skin - Neurological Neurological ROS: weakness - Psychiatric Psychiatric general PM: anxiety Palliative Care-Exam - Constitutional Vitals: Temp Pulse Resp BP Pulse Ox 97.8 F 92 16 118/80 97 04/09/18 06:50 04/09/18 06:50 04/09/18 06:50 04/09/18 06:50 04/09/18 06:50 General appearance: Present: cooperative, no acute distress. Absent: obese - Head Head Exam: Present: atraumatic, normal inspection - Eye Eye exam: Present: EOMI, normal appearance, PERRL, conjuntiva pink - ENT ENT exam: Present: mucous membranes moist, normal external ear exam. Absent: mucous membranes dry - Neck Neck exam: Present: full ROM, normal inspection - Respiratory Respiratory exam: Present: rhonchi, wheezes. Absent: accessory muscle use, respiratory distress - Cardiovascular Cardiovascular exam: Present: +S1, +S2 - Expanded Cardiovascular Exam Peripheral pulses: 2+: Radial (L), Radial (R), Posterior Tibialis (L), Posterior Tibialis (R), Dorsalis Pedis (L) PM, Dorsalis Pedis (R) PM - GI/Abdominal Exam GI/Abdominal exam: Present: normal bowel sounds, soft. Absent: tenderness - Rectal Rectal Exam: Present: deferred - Extremities Exam Extremities exam: Present: full ROM, normal inspection. Absent: calf t enderness, pedal edema, tenderness - Neurological Exam Neurological exam: Present: alert, oriented X3, strengths equal and symetr throughout. Absent: altered - Expanded Neurological Exam Patient oriented to: Present: person, place, time Coma Scale Eye Opening: To Voice Coma Scale Motor Response: Obeys Commands Coma Scale Verbal Response: Oriented Coma Scale Total: 14 - Psychiatric Psychiatric exam: Present: normal affect, normal mood - Skin Skin exam: Present: dry, intact Internal Medicine - CN: Reslt - Labs CBC & Chem 7: 04/09/18 04:07 04/09/18 04:07 Labs: Short CBC 04/09/18 Range/Units 04:07 WBC 5.3 (4.3-11.1) K/mcL Hgb 9.1 L D (12.9-16.9) g/dL Hct 27.7 L (37.5-50.1) % Plt Count 147 (140-400) K/mcL Neutrophils # 4.8 (1.6-8.9) K/mcL BMP 04/09/18 04:07 Sodium 134 L Potassium 4.0 Chloride 105 Carbon Dioxide 23 BUN 16 Creatinine 0.74 Glucose 166 H Calcium 8.0 L Consult Discharge Plan - Plan Referrals: Lucie Aragon, DIGITAL CAMPAIGN MANAGER [Primary Care Provider] - Palliative Quality Palliative Quality: Screen for Code Status: Yes, Screen for Goals of Care: Yes, Screen for Pain: Yes, If Pain Regimen Started, Initiate Bowel Regimen: NA, Screen for Nausea/Vomitting: Yes Code Status: 04/09/18 02:44 FULL [Resuscitation Status: Active] [RES] Routine Comment: Resuscitation Status: Full Code Palliative Scale - Palliative Performance Scale How ambulatory is this patient?: Reduced What is patient's level of activity and evidence of disease?: Unable hobby/housework, Significant disease How much self-care assistance does patient require?: Occasional assistance necessary How much oral intake does the patient have?: Normal or reduced What is this patient's level of consciousness?: Full or confusion
[2018-04-09] MEDS: Pregabalin 50 MG CAPSULE PO SCH ×2 (11:04→21:00)
[2018-04-09] MEDS: Apixaban 5 MG TABLET PO SCH ×2 (11:04→21:09)
[2018-04-09] MEDS: Aspirin Enteric Coated 81 MG Tablet PO SCH (11:04)
[2018-04-09] MEDS: *HR* OxyCODONE Immed Rel 15 MG TABLET PO SCH ×2 (12:26→18:56)
[2018-04-09] MEDS ORDERED: Isovue-370 500 ML BOTTLE IVP ONE (13:51)
--- NOTE | 2018-04-09 15:49 | Oncology Inp Consult Note ---
<Emanuel Triana - Last Filed: 04/09/18 17:38> Date of Encounter: 04/09/18 - Data of Consult Requesting Physician: Laura Arroyo MD Primary Care Provider: Lucie Aragon CNP Medications and Allergies Aspirin [Lo-Dose Aspirin EC] 81 mg PO DAILY 07/16/16 [History] Atorvastatin [Lipitor] 40 mg PO HS 07/16/16 [History] Pantoprazole Sodium [Protonix] 40 mg PO DAILY 07/16/16 [History] Montelukast [Singulair] 10 mg PO DAILY PRN 10/04/16 [History] Nitroglycerin [Nitrostat] 0.4 mg SL Q5M PRN 10/04/16 [History] Pregabalin [Lyrica] 100 mg PO BID 10/24/17 [History] Apixaban [Eliquis] 5 mg PO BID 11/20/17 [History] Cyanocobalamin (Vitamin B-12) [Vitamin B12] 1 tab PO DAILY #30 tab 12/27/17 [Rx] Albuterol Sulfate [Albuterol Inhaler] 2 puff IH Q4HR PRN #1 hfa.aer.ad 01/26/18 [Rx] Celecoxib [Celebrex] 200 mg PO DAILY 01/29/18 [History] Amitriptyline [Elavil] 25 mg PO HS 03/05/18 [History] GuaiFENesin ER [Mucinex] 600 mg PO BID PRN 03/05/18 [History] LORazepam [Ativan] 0.5 mg PO HS 03/05/18 [History] Prochlorperazine Maleate [Compazine] 10 mg PO QAM PRN 03/05/18 [History] Tizanidine HCl 4 mg PO HS 03/05/18 [History] Midodrine [ProAmatine] 5 mg PO 0800,1200,1700 #90 tablet 03/17/18 [Rx] Oxycodone HCl 15 mg PO QID 04/09/18 [History] Allergy/AdvReac Type Severity Reaction Status Date / Time amlodipine AdvReac See Verified 02/28/18 15:24 Comments Consult Discharge Plan - Plan Referrals: Lucie Aragon CNP [Primary Care Provider] - - Attending Attestation I examined this patient and my medical decision-making was reviewed with the Advanced Practice Nurse Tova winter. I agree with the documented findings, disposition and treatment plan as described except to the extent set forth below. 1. Extensive cell small cell lung cancer progressed after immunotherapy with combination of ipilimumab and Nivolumab. Last dose was 02/26/2018 2. Admitted with shortness of breath. CT chest 04/09/2018 showed extensive left-sided lymphadenopathy. Also right lung infiltrate possible pneumonitis. Since he had immunotherapy last month would treat him with steroids for possible autoimmune pneumonitis Solu-Medrol 40 mg IV twice a day with a slow taper Overall prognosis is poor <Tova Winter L - Last Filed: 04/09/18 18:18> Date of Encounter: 04/09/18 Time of Encounter: 14:15 Assessment and Plan (1) Goals of care, counseling/discussion Status: Acute Assessment and plan: Palliative care had family discussion regarding goals of care Hospice philosophy was discussed Plan: I entered room on end of discussion with palliative care Patient and family were wishing to know current treatment options which were discussed with patient/family today Overall prognosis is poor as described in HPI, he has progressed on third line of treatment, most recently progressed on Ipilimumab/Nivolumab---further treatment options may include single agent Nivolumab [id number] vs. irinotecan, he does not seem interested in irinotecan tx The hospice philosophy was discussed, overall, he is interested in pursuing rehabilitation at this time which is reasonable. We discussed that if he does not make strides in rehab, that hospice would be an appropriate next step (2) Pneumonia Status: Acute Assessment and plan: CT of the chest today reveals Moderate left pleural effusion which is stable or slightly decreased compared to prior. Redemonstration of extensive marked mediastinal/hilar lymphadenopathy which on the left is confluent with large left upper lobe mass with surrounding atelectasis and ground-glass/septal thickening. New/worsening right upper lobe posterior segment ground-glass attenuation/underlying septal thickening may reflect disease progression or pneumonitis. Upper abdominal lymphadenopathy with retroperitoneal and periportal lymph nodes noted along with left axillary lymphadenopathy. New right axilla fat infiltration may reflect recent intervention. Osseous metastasis stable. Plan: Given recent immunotherapy and risk for treatment induced pneumonitis we will start solumedrol 40 mg Q12H with long taper, may taper to 40 mg prednisone daily at discharge with long taper (40 daily x1 week, 30 daily x1 week, ect.) Treatment of pneumonia per hospitalist team- on vanc/zosyn Qualifiers: Pneumonia type: due to unspecified organism Laterality: right Lung location: lower lobe of lung Qualified Code(s): J18.1 - Lobar pneumonia, unspecified organism (3) Small cell lung cancer Status: Chronic Assessment and plan: Extensive cell small cell lung cancer progressed after immunotherapy with combination of ipilimumab and Nivolumab. Last dose was 02/26/2018 Plan: As discussed above, patient interested in pursuing further treatment options if he is a candidate, this will continue to be ongoing discussion Likely plan for rehabilitation at [facility], we will monitor his performance status as outpatient - Data of Consult Patient: known to practice within the last 3 years Consult date: 04/09/18 Requesting Physician: Laura Arroyo MD Primary Care Provider: Lucie Aragon CNP - Consult Narrative Reason for consult: Small cell lung cancer History of present illness: Mr. Shah is a 58 year old male with AJCC Stage IV small cell lung cancer. 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 Extensive stage bilateral cervical and mediastinal adenopathy, Sclerotic bone metastasis. S/P 6 cycles cisplatin/etoposide 10/13/2016 to 02/08/2017. He had disease progression noted on CT chest 10/02/2017 with the interval development of a rind of soft tissue along the leftward aspect of mediastinum, with interval increased size of mediastinal lymph nodes, concerning for recurrent disease and development of upper abdominal lymphadenopathy. Otherwise, the abdomen pelvis is stable in appearance. Re-demonstration of widespread osteoblastic bony metastatic disease. NCCN guidelines states that in this case of relapse after 6 months, restart original regimen. He began cisplatin with etoposide C1 10/30/2017, C2 11/20/[address] chest/abdomen/pelvis on 11/27/2017 showing slight progression in the 3 places left paramediastinal mass left supraclavicular lymph node and subcarinal area. Patient was tolerating chemotherapy poorly and decision was made to transition to Ipilumumab/Nivolumab [id number], with C1 12/18/2017, and completed C4 02/26/2018. CT abdomen and pelvis 02/14/2018 showed progression mainly in the left supraclavicular, mediastinal lymph nodes and left hilar mass. It was felt that this represented true progression versus pseudoprogression sometimes seen with immunotherapy. Options discussed with patient included Nivolumab Q2 weeks for another couple months and reevaluate versus switching to single agent irinotecan, final decision was to be made at next follow up. He presents now on transfer from [facility] where he went to with complaints of increasing shortness of breath and productive cough. He also reported feeling feverish and having chills with generalized malaise. He was seen to be in respiratory distress and received nebulizer treatment. He was also somewhat hypotensive and he responded to fluid resuscitation. His initial lactate was 2.5 and down to 1.2 on repeat. He was started on empiric ATB (vanc/zosyn) after x- ray revealed worsening left parahilar and upper lobe opacities compatible with pneumonia. Past Med Surg Social Fam HX - Past Medical History Medical history: cancer, COPD, coronary artery disease, hyperlipidemia, hypertension, other Additional medical history: NOW BLOOD PRESSURE IS LOW AND IS ON MEDICATION TO BRING IT UP. Psychiatric history: no psych history - Past Surgical History Surgical History: cholecystectomy, orthopedic, other, other Additional surgical history: back surgery - Social History Smoking Status: Current every day smoker Packs per day: less than a pack day Smokeless Tobacco Status: No Alcohol use: none Drug use: none - Family History Father Living Status: Hx Family Cardiac Disorders: No Hx Family Respiratory Disorders: Yes Hx Family Cancer: Yes (; hx cancer but patient not sure what kind ) Hx Family GI Disorders: No Hx Family Endocrine Disorder: No Hx Family Neuromuscular Disorders: No Hx Family Neurologic Disorders: No Hx Family HEENT Disorders: No Hx Family Autoimmune Disorders: No Constitutional: Present: anorexia, chills, fatigue, fever(s) (now resolved since admission), weakness, weight loss Cardiovascular: Absent: chest pain, palpitations Respiratory: Present: cough, dyspnea Gastrointestinal: Absent: abdominal pain, nausea, vomiting Genitourinary: Absent: dysuria, hematuria Musculoskeletal: Present: muscle weakness Integumentary: Absent: rash, wounds Neurological: Present: disequilibrium. Absent: focal weakness, frequent falls, headache(s), syncope Psychiatric: Present: as per HPI Hematologic/Lymphatic: Present: as per HPI Oncology - Exam - Constitutional General appearance: cooperative, no acute distress, thin, no febrile - Head Head exam: Present: atraumatic - Eye Eye exam: Present: PERRL - ENT ENT exam: Present: mucous membranes moist, normal oropharynx - Neck Neck exam: Absent: lymphadenopathy - Respiratory Respiratory exam: Present: decreased breath sounds, CTAB. Absent: respiratory distress - Cardiovascular Cardiovascular exam: Present: RRR, +S1, +S2 - GI/Abdominal GI/Abdominal exam: Present: normal bowel sounds, soft. Absent: tenderness - Extremities Exam Extremities exam: Present: normal inspection. Absent: calf tenderness - Neurological Exam Neurological exam: Present: alert, CN II-XII intact, oriented X3, no focal deficits, strengths equal and symetr throughout - Psychiatric Psychiatric exam: Present: flat affect - Skin Skin exam: Present: dry, intact, pallor, warm Inpatient Charges Provider: Dr. Figueroa Triana
[2018-04-09] MEDS ORDERED: 0.9 % Sodium Chloride 500 ML IVC ONE (18:49)
[2018-04-09] MEDS: MethylPREDNISolone 40 MG/ML VIAL IVP SCH (18:50)
[2018-04-09] MEDS: 0.9 % Sodium Chloride 1,000 ML IVC SCH (18:56)
[2018-04-09] MEDS: *HR* LORazepam 0.5 MG TABLET PO SCH (21:09)
[2018-04-10] MEDS: 0.9 % Sodium Chloride 1,000 ML IVC SCH (00:43)
[2018-04-10] MEDS: *HR* OxyCODONE Immed Rel 15 MG TABLET PO SCH ×2 (04:10→04:14)
[2018-04-10] MEDS: MethylPREDNISolone 40 MG/ML VIAL IVP SCH ×2 (04:11→17:30)
[2018-04-10 05:31] LABS: Basophils % 0.1 %; Hematocrit 25.6 % (37.5-50.1); Hemoglobin 8.7 g/dL (12.9-16.9); Immature Granulocytes % 0.8 % (0-4); Lymphocytes # 0.6 K/mcL (0.6-4.6); Mean Corpuscular Hemoglobin 32.1 pg (28.0-33.3); Mean Corpuscular Volume 94.5 fL (83.0-100.0); Mean Platelet Volume 10.3 fL (9.4-12.4); Neutrophils # 7.9 K/mcL (1.6-8.9); Platelet Count 181 K/mcL (140-400); Red Blood Count 2.71 M/mcL (4.19-5.50); Red Cell Distribution Width 16.9 % (11.5-14.5); Segmented Neutrophils % 86.1 %
[2018-04-10 05:33] LABS: Monocytes # 0.6 K/mcL (0.0-1.3)
[2018-04-10 05:52] LABS: BUN/Creatinine Ratio 18 (6-26); Blood Urea Nitrogen 13 mg/dL (8-23); Carbon Dioxide 22 mEq/L (23-29); Chloride 107 mEq/L (98-107); Glucose 154 mg/dL (70-105); Magnesium 1.7 mg/dL (1.6-2.6); Osmolality,Calculated 283 (280-300); Phosphorous 2.2 mg/dL (2.7-4.5); Potassium 3.9 mEq/L (3.5-5.1); Sodium 135 mEq/L (136-145); eGFR For Non-African Americans > 60 (> 60)
--- NOTE | 2018-04-10 07:50 | Internal Med Progress Note ---
Hospitalist Progress Note - Encounter Date of Encounter: 04/10/18 Time of Encounter: 07:45 - Subjective Interval History: 58 year old man with metastatic left lung cancer complicated by malignant effusion and cardiac tamponade that required urgent pericardial window and left chest tube placement during his last admission 4 weeks ago. He also has atrial fibrillation, COPD and coronary artery disease while he continues to smoke. He presents now on transfer from [facility] where he went to with complaints of increasing shortness of breath and productive cough. He also reported feeling feverish and having chills with generalized malaise. He was seen to be in respiratory distress and received nebulizer treatment. - Exam Vitals: Temp Pulse Resp BP Pulse Ox 98.9 F 103 18 125/86 92 04/10/18 07:37 04/10/18 07:37 04/10/18 07:37 04/10/18 07:37 04/10/18 07:37 Exam: Vitals: Reviewed General: Emaciated man sitting comfortably in bed in [facility] Skin: Pale, dry. HEENT: Dry mucous membranes. (+) conjunctivae pallor. Neck: No JVD. No carotid bruits. No palpable thyroid. Chest: Reduced breath sounds in the right lung base. Heart: Normal S1 & S2; rhythmic. Abdomen: Non-distended, soft and non-tender to palpation. No peritoneal reaction. Extremities: (+) clubbing. No cyanosis or edema. No calf tenderness. Normal distal pulses. Neurological: Awake, alert and oriented to person, place and time. No focal deficits. Psych: Affect appropriate. - Assessment and Plan (1) Hospital acquired PNA Current Visit: Yes Status: Acute Assessment and Plan: Patient comes in with shortness of breath, new infiltrate on xray and left pleural effusion on CT scan. recently discharged from the hospital Continue antibiotics with vanc and zosyn. Follow up cultures IR consult for thoracentesis (2) Malignant pleural effusion Current Visit: Yes Status: Acute Assessment and Plan: Patient has pleural effusion on xray which may be related to metastatic lung cancer vs pneumonia Continue broad spectrum antibiotics. IR consulted for thoracentesis and will request pleural fluid studies (3) CAD (coronary artery disease) Current Visit: Yes Status: Chronic Assessment and Plan: Clinically stable with no signs of acute disease. Resume home meds (4) COPD (chronic obstructive pulmonary disease) Current Visit: Yes Status: Chronic Assessment and Plan: No acute exacerbation. Continue nebs PRN (5) Essential hypertension Current Visit: Yes Status: Chronic Assessment and Plan: Continue home meds. (6) Lung cancer Current Visit: Yes Status: Acute Assessment and Plan: Metastatic small cell lung cancer. He progressed through 2 lines of chemothe rapy. Completed 4 cycles of Ipilumumab and Nivolumab on 02/28/2018. CT abdomen and pelvis 02/14/2018 showed progression mainly in the left supraclavicular, mediastinal lymph nodes and left hilar mass. Palliative care and oncology consulted for long-term goals. Patient desires to continue receiving cancer treatment if possible (7) Atrial fibrillation Current Visit: Yes Status: Chronic Assessment and Plan: Currently rate controlled. Seen to be on anticoagulation. DVT Prophylaxis: On eliquis - Time Spent with Patient Total time spent is greater than 50% in coordination of care (as documented) at patient's floor/unit and/or counseling patient: Internal Medicine: Result - Labs CBC & Chem 7: 04/10/18 05:10 04/10/18 05:10 Labs: Short CBC 04/10/18 Range/Units 05:10 WBC 9.2 D (4.3-11.1) K/mcL Hgb 8.7 L (12.9-16.9) g/dL Hct 25.6 L (37.5-50.1) % Plt Count 181 (140-400) K/mcL Neutrophils # 7.9 (1.6-8.9) K/mcL BMP 04/10/18 05:10 Sodium 135 L Potassium 3.9 Chloride 107 Carbon Dioxide 22 L BUN 13 Creatinine 0.74 Glucose 154 H Calcium 8.0 L - Impressions Impressions Chest CT 04/09/18 13:51 IMPRESSION: 1. Moderate left pleural effusion which is stable or slightly decreased compared to prior. 2. Redemonstration of extensive marked mediastinal/hilar lymphadenopathy which on the left is confluent with large left upper lobe mass with surrounding atelectasis and ground-glass/septal thickening. New/worsening right upper lobe posterior segment ground-glass attenuation/underlying septal thickening may reflect disease progression or pneumonitis 3. Upper abdominal lymphadenopathy with retroperitoneal and periportal lymph nodes noted along with left axillary lymphadenopathy. 4. New right axilla fat infiltration may reflect recent intervention. 5. Osseous metastasis stable. D/ / Reginald Fernando MD / Reginald Fernando MD Interpreting Provider: Reginald Fernando MD Consult Discharge Plan - Plan Referrals: Lucie Argaon GRAPHICS EDITOR [Primary Care Provider] - (3) CAD (coronary artery disease) Qualifiers: Coronary Disease-Associated Artery/Lesion type: [place] artery [place] vs. transplanted heart: [place] heart Associated angina: without angina Qualified Code(s): I25.10 - Atherosclerotic heart disease of [place] coronary artery without angina pectoris (4) COPD (chronic obstructive pulmonary disease) Qualifiers: COPD type: emphysema Emphysema type: panlobular Qualified Code(s): J43.1 - Panlobular emphysema (6) Lung cancer Qualifiers: Laterality: unspecified laterality Lung location: unspecified part of lung Qualified Code(s): C34.90 - Malignant neoplasm of unspecified part of unspecified bronchus or lung (7) Atrial fibrillation Qualifiers: Atrial fibrillation type: chronic Qualified Code(s): I48.2 - Chronic atrial fibrillation
[2018-04-10] MEDS: Piperacillin/Tazobactam 3.375 GM in 0.9 % Sodium Chloride Mini Bag 100 ML IVPB SCH ×2 (09:49→17:23)
[2018-04-10] MEDS: Aspirin Enteric Coated 81 MG Tablet PO SCH (09:49)
[2018-04-10] MEDS: Cyanocobalamin (B-12) 1,000 MCG TABLET PO SCH (09:49)
[2018-04-10] MEDS: Pregabalin 50 MG CAPSULE PO SCH ×2 (09:49→20:27)
[2018-04-10] MEDS: Apixaban 5 MG TABLET PO SCH ×2 (09:49→20:27)
[2018-04-10] MEDS: *HR* OxyCODONE Immed Rel 5 MG TABLET PO PRN (09:55)
--- NOTE | 2018-04-10 10:12 | Palliative Progress Note ---
Date of Encounter: 04/10/18 Time of Encounter: 09:00 - Assessment and plan (1) Pain Current Visit: Yes Status: Chronic Assessment and plan: Patient reports continued neck, back pain. Rated 8/10. Scheduled pain medications being held due to hypotension. Evaluated patient at bedside and discussed situation. Agreed to changed medications to every 8 hours and decrease dose to 10 mg. Parameters set for holding pain medications. (2) Goals of care, counseling/discussion Current Visit: Yes Status: Acute Assessment and plan: Patient reports he plans to follow up with Oncology outpatient, per recommendations. Desires to continue treatment as long as it continues to allow him more time. Brother reported at yester meeting ideal plan to discharge to [facility] for rehab then see if Oncology could offer anything, if not, at that time would contact hospice. Patient agreeable to rehab at discharge, only if deemed necessary. Unsure of loc ation at this time. Desires to see what PT/OT report after evaluation. (3) Pneumonia Current Visit: Yes Status: Acute Assessment and plan: Treatment per Primary team with IV Antibiotics. Qualifiers: Pneumonia type: due to unspecified organism Laterality: right Lung location: lower lobe of lung Qualified Code(s): J18.1 - Lobar pneumonia, unspecified organism (4) Pleural effusion Current Visit: No Status: Acute (5) Small cell lung cancer in adult Current Visit: No Status: Chronic Assessment and plan: Oncology recommendations appreciated. (6) Weakness Current Visit: Yes Status: Acute Assessment and plan: Patient admits weakness from prior to hospitalization. Ordered PT/OT evaluation. - Time Spent With Patient Total time spent is greater than 50% in coordination of care (as documented) at patient's floor/unit and/or counseling patient: - Subjective Interval history: Patient sitting up in bed, awake, alert, and oriented times 3. No family present at bedside. Patient continues to report chronic back, neck pain; rated an 8/10. Patient has received 2 doses of his scheduled Oxycodone overnight, the rest were held due to hypotension. Patient denies anxiety, dyspnea, nausea, and vomiting. Patient reports desire to go home; however, acknowledges too weak to care for himself at this time. - Constitutional Vitals: Abnormal lab results RBC 2.71 M/mcL (4.19-5.50) L 04/10/18 05:10 Hgb 8.7 g/dL (12.9-16.9) L 04/10/18 05:10 Hct 25.6 % (37.5-50.1) L 04/10/18 05:10 RDW 16.9 % (11.5-14.5) H 04/10/18 05:10 Sodium 135 mEq/L (136-145) L 04/10/18 05:10 Carbon Dioxide 22 mEq/L (23-29) L 04/10/18 05:10 Glucose 154 mg/dL (70-105) H 04/10/18 05:10 Calcium 8.0 mg/dL (8.6-10.3) L 04/10/18 05:10 Phosphorus 2.2 mg/dL (2.7-4.5) L 04/10/18 05:10 General appearance: Present: cooperative, no acute distress, thin - Head Head exam: Present: atraumatic, normal inspection - Eye Eye exam: Present: EOMI, normal appearance, PERRL, conjuntiva pink. Absent: periorbital swelling, periorbital tenderness Pupils: Present: normal accommodation, PERRL - ENT ENT exam: Present: mucous membranes dry, normal external ear exam - Neck Neck exam: Present: full ROM, normal inspection - Respiratory Respiratory exam: Present: CTAB, wheezes. Absent: accessory muscle use, respiratory distress - Cardiovascular Cardiovascular exam: Present: +S1, +S2 - GI/Abdominal GI/Abdominal exam: Present: normal bowel sounds, soft. Absent: tenderness - Rectal Rectal exam: Present: deferred - Extremities Exam Extremities exam: Present: full ROM, normal inspection. Absent: calf tenderness, pedal edema - Back Exam Back exam: Present: normal inspection - Neurological Exam Neurological exam: Present: alert, oriented X3, strengths equal and symetr throughout. Absent: altered - Psychiatric Psychiatric exam: Present: normal affect, normal mood - Skin Skin exam: Present: dry, intact, pallor, warm Palliative Quality Palliative Quality: Screen for Code Status: Yes, Screen for Goals of Care: Yes, Screen for Pain: Yes, If Pain Regimen Started, Initiate Bowel Regimen: NA, Screen for Nausea/Vomitting: Yes Code Status: 04/09/18 02:44 FULL [Resuscitation Status: Active] [RES] Routine Comment: Resuscitation Status: Full Code 04/10/18 07:52 DNR [Resuscitation Status: Active] [RES] Routine Comment: State form completed. Resuscitation Status: DNR-Comfort Care-Arrest - Labs CBC & Chem 7: 04/10/18 05:10 04/10/18 05:10 Labs: Laboratory Results - last 24 hr 04/10/18 04/10/18 05:10 05:10 WBC 9.2 D RBC 2.71 L Hgb 8.7 L Hct 25.6 L MCV 94.5 MCH 32.1 MCHC 34.0 RDW 16.9 H Plt Count 181 MPV 10.3 Immature Gran % 0.8 Seg Neutrophils % 86.1 Lymphocytes % 6.0 Monocytes % 7.0 Eosinophils % 0.0 Basophils % 0.1 Neutrophils # 7.9 Lymphocytes # 0.6 Monocytes # 0.6 Eosinophils # 0.0 Basophils # 0.0 Sodium 135 L Potassium 3.9 Chloride 107 Carbon Dioxide 22 L BUN 13 Creatinine 0.74 Est GFR ( Amer) > 60 Est GFR (Non-Af Amer) > 60 BUN/Creatinine Ratio 18 Glucose 154 H Calculated Osmolality 283 Calcium 8.0 L Phosphorus 2.2 L Magnesium 1.7 - Impressions Impressions Chest CT 04/09/18 13:51 IMPRESSION: 1. Moderate left pleural effusion which is stable or slightly decreased compared to prior. 2. Redemonstration of extensive marked mediastinal/hilar lymphadenopathy which on the left is confluent with large left upper lobe mass with surrounding atelectasis and ground-glass/septal thickening. New/worsening right upper lobe posterior segment ground-glass attenuation/underlying septal thickening may reflect disease progression or pneumonitis 3. Upper abdominal lymphadenopathy with retroperitoneal and periportal lymph nodes noted along with left axillary lymphadenopathy. 4. New right axilla fat infiltration may reflect recent intervention. 5. Osseous metastasis stable. D/ / Reginald Fernando MD / Reginald Fernando MD Interpreting Provider: Reginald Fernando MD Palliative Scale - Palliative Performance Scale How ambulatory is this patient?: Reduced What is patient's level of activity and evidence of disease?: Unable hobby/housework, Significant disease How much self-care assistance does patient require?: Occasional assistance neces mykel How much oral intake does the patient have?: Normal or reduced What is this patient's level of consciousness?: Full or confusion Palliative Performance Score: 80 % Consult Discharge Plan - Plan Referrals: Lucie Aragon, MARISELA [Primary Care Provider] -
[2018-04-10] MEDS: Ipratropium/Albuterol Neb 3 ML IH SCH ×2 (16:40→19:44)
[2018-04-10] MEDS: *HR* OxyCODONE Immed Rel 5 MG TABLET PO SCH ×2 (17:24→23:51)
[2018-04-10] MEDS: Budesonide/Formoterol 160/4.5 1 PUFF INH IH SCH (19:45)
[2018-04-10] MEDS: *HR* LORazepam 0.5 MG TABLET PO SCH (20:27)
[2018-04-11] MEDS: 0.9 % Sodium Chloride 1,000 ML IVC SCH ×3 (00:23→17:53)
[2018-04-11] MEDS: Piperacillin/Tazobactam 3.375 GM in 0.9 % Sodium Chloride Mini Bag 100 ML IVPB SCH ×3 (00:43→17:05)
[2018-04-11] MEDS: Ipratropium/Albuterol Neb 3 ML IH SCH ×6 (00:52→20:23)
[2018-04-11 04:13] LABS: Basophils % 0.1 %; Hematocrit 27.1 % (37.5-50.1); Hemoglobin 8.9 g/dL (12.9-16.9); Immature Granulocytes % 1.8 % (0-4); Lymphocytes # 0.5 K/mcL (0.6-4.6); Lymphocytes % 5.4 %; Mean Corpuscular HGB Conc 32.8 g/dL (31.6-35.5); Mean Corpuscular Hemoglobin 31.9 pg (28.0-33.3); Mean Corpuscular Volume 97.1 fL (83.0-100.0); Mean Platelet Volume 10.2 fL (9.4-12.4); Monocytes # 0.9 K/mcL (0.0-1.3); Monocytes % 10.9 %; Neutrophils # 6.8 K/mcL (1.6-8.9); Platelet Count 207 K/mcL (140-400); Red Blood Count 2.79 M/mcL (4.19-5.50); Red Cell Distribution Width 17.1 % (11.5-14.5); Segmented Neutrophils % 81.8 %
[2018-04-11 04:25] LABS: BUN/Creatinine Ratio 18 (6-26); Blood Urea Nitrogen 13 mg/dL (8-23); Calcium 8.1 mg/dL (8.6-10.3); Carbon Dioxide 22 mEq/L (23-29); Chloride 109 mEq/L (98-107); Glucose 169 mg/dL (70-105); Magnesium 1.7 mg/dL (1.6-2.6); Osmolality,Calculated 288 (280-300); Phosphorous 1.8 mg/dL (2.7-4.5); Sodium 137 mEq/L (136-145); eGFR For Non-African Americans > 60 (> 60)
[2018-04-11] MEDS: MethylPREDNISolone 40 MG/ML VIAL IVP SCH ×2 (05:23→17:05)
[2018-04-11] MEDS: Budesonide/Formoterol 160/4.5 1 PUFF INH IH SCH ×2 (07:36→20:23)
[2018-04-11] MEDS: *HR* OxyCODONE Immed Rel 5 MG TABLET PO SCH ×2 (08:30→17:05)
[2018-04-11] MEDS: Aspirin Enteric Coated 81 MG Tablet PO SCH (08:30)
[2018-04-11] MEDS: Cyanocobalamin (B-12) 1,000 MCG TABLET PO SCH (08:30)
[2018-04-11] MEDS: Apixaban 5 MG TABLET PO SCH ×2 (08:30→20:42)
[2018-04-11] MEDS: Pregabalin 50 MG CAPSULE PO SCH ×2 (08:32→20:42)
--- NOTE | 2018-04-11 10:36 | Palliative Progress Note ---
Date of Encounter: 04/11/18 Time of Encounter: 09:00 - Assessment and plan (1) Pain Current Visit: Yes Status: Chronic Assessment and plan: Patient reports continued neck, back pain. Reports pain management has improved over the last 24 hours. Continue with Current schedule. (2) Goals of care, counseling/discussion Current Visit: Yes Status: Acute Assessment and plan: Met with patient to discuss goals of care moving forward, for ensuring proper understanding of discharge plan. Patient tearful and expressed he knows he will not be surviving long and does not want to spend his remaining time in a fci. Also acknowledges he is not strong enough to care for himself at home. Patient would like to have repeat meeting to finalize goals of care upon Jason (patient's brother) arrival. [phone]: met with patient, brother, and sister regarding goals of care. Family remains unsure whether to have continued cancer treatment at this time. Family reports family meeting with Dr. Triana at 4 pm. Interested in going to [facility] for rehab short tern 7-10 days. If no improvement, will transition home with hospice care. If improvement, will allow patient to determine if would like to have cancer treatment again versus hospice care. Patient in agreement. Notified Surya CHASE of discharge plan. (3) Pneumonia Current Visit: Yes Status: Acute Assessment and plan: Treatment per Primary team with IV Antibiotics. Qualifiers: Pneumonia type: due to unspecified organism Laterality: right Lung location: lower lobe of lung Qualified Code(s): J18.1 - Lobar pneumonia, unspecified organism (4) Pleural effusion Current Visit: No Status: Acute Assessment and plan: IR consulted for thoracentesis. (5) Small cell lung cancer in adult Current Visit: No Status: Chronic Assessment and plan: Oncology recommendations appreciated. (6) Weakness Current Visit: Yes Status: Acute Assessment and plan: Patient admits weakness from prior to hospitalization. PT/OT evaluation pending, as patient had refused PT/OT yesterday. - Time Spent With Patient Total time spent is greater than 50% in coordination of care (as documented) at patient's floor/unit and/or counseling patient: - Subjective Interval history: Patient sitting up in bed, awake, alert, and oriented times 3; having breakfast upon arrival for assessment. No family present at bedside. Patient continues to report chronic back, neck pain; reports improvement in pain level over the last 24 hours. Patient has received 3 doses of his scheduled Oxycodone and 1 PRN Oxycodone over the last 24 hours. Patient denies anxiety, dyspnea, nausea, and vomiting. Patient reports desire to go home; however, acknowledges too weak to care for himself at this time. Patient very tearful this morning. Patient reported with his overall prognosis, being poor, he does not want to spend all of his remaining life in a fci. Would be interested in having care at home; however, doesn't know anyone who can stay with him 24 hours a day, and knows he cannot care for himself. Requested to follow up with his brother upon his brother's arrival to [facility] today. - Constitutional Vitals: Abnormal lab results RBC 2.79 M/mcL (4.19-5.50) L 04/11/18 03:40 Hgb 8.9 g/dL (12.9-16.9) L 04/11/18 03:40 Hct 27.1 % (37.5-50.1) L 04/11/18 03:40 RDW 17.1 % (11.5-14.5) H 04/11/18 03:40 Lymphocytes # 0.5 K/mcL (0.6-4.6) L 04/11/18 03:40 Chloride 109 mEq/L (98-107) H 04/11/18 03:40 Carbon Dioxide 22 mEq/L (23-29) L 04/11/18 03:40 Glucose 169 mg/dL (70-105) H 04/11/18 03:40 Calcium 8.1 mg/dL (8.6-10.3) L 04/11/18 03:40 Phosphorus 1.8 mg/dL (2.7-4.5) L 04/11/18 03:40 Vancomycin Trough 19 mcg/mL (5-10) H 04/10/18 22:10 General appearance: Present: cooperative, mild distress, thin - Head Head exam: Present: atraumatic, normal inspection - Eye Eye exam: Present: EOMI, normal appearance. Absent: periorbital swelling, periorbital tenderness Pupils: Present: normal accommodation, PERRL - ENT ENT exam: Present: mucous membranes dry, normal external ear exam - Neck Neck exam: Present: full ROM, normal inspection - Respiratory Respiratory exam: Present: rhonchi, wheezes. Absent: accessory muscle use, respiratory distress - Cardiovascular Cardiovascular exam: Present: RRR, +S1, +S2 - GI/Abdominal GI/Abdominal exam: Present: normal bowel sounds, soft. Absent: guarding, tenderness - Rectal Rectal exam: Present: deferred - Extremities Exam Extremities exam: Present: full ROM, normal inspection. Absent: calf tenderness, pedal edema, tenderness - Back Exam Back exam: Present: full ROM, normal inspection. Absent: tenderness - Neurological Exam Neurological exam: Present: alert, oriented X3, strengths equal and symetr throughout. Absent: altered - Expanded Neurological Exam Neurological exam: Present: memory loss-recent event (Patient has difficulty focusing and forgets some of conversations.) Coma Scale Eye Opening: Spontaneous Coma Scale Motor Response: Obeys Commands Coma Scale Verbal Response: Oriented Coma Scale Total: 15 - Psychiatric Psychiatric exam: Present: normal affect, normal mood - Skin Skin exam: Present: dry, intact, pallor, warm Palliative Quality Palliative Quality: Screen for Code Status: Yes, Screen for Goals of Care: Yes, Screen for Pain: Yes, If Pain Regimen Started, Initiate Bowel Regimen: NA, S creen for Nausea/Vomitting: Yes Code Status: 04/09/18 02:44 FULL [Resuscitation Status: Active] [RES] Routine Comment: Resuscitation Status: Full Code 04/10/18 07:52 DNR [Resuscitation Status: Active] [RES] Routine Comment: State form completed. Resuscitation Status: DNR-Comfort Care-Arrest - Labs CBC & Chem 7: 04/11/18 03:40 04/11/18 03:40 Labs: Laboratory Results - last 24 hr 04/10/18 04/11/18 04/11/18 22:10 03:40 03:40 WBC 8.3 RBC 2.79 L Hgb 8.9 L Hct 27.1 L MCV 97.1 MCH 31.9 MCHC 32.8 RDW 17.1 H Plt Count 207 MPV 10.2 Immature Gran % 1.8 Seg Neutrophils % 81.8 Lymphocytes % 5.4 Monocytes % 10.9 Eosinophils % 0.0 Basophils % 0.1 Neutrophils # 6.8 Lymphocytes # 0.5 L Monocytes # 0.9 Eosinophils # 0.0 Basophils # 0.0 Sodium 137 Potassium 4.0 Chloride 109 H Carbon Dioxide 22 L BUN 13 Creatinine 0.73 Est GFR ( Amer) > 60 Est GFR (Non-Af Amer) > 60 BUN/Creatinine Ratio 18 Glucose 169 H Calculated Osmolality 288 Calcium 8.1 L Phosphorus 1.8 L Magnesium 1.7 Vancomycin Trough 19 H - Impressions Impressions Chest Ultrasound 04/10/18 07:42 FINDINGS/IMPRESSION: Limited ultrasound of the left chest was performed to assess for adequacy of pleural fluid for thoracentesis. Ultrasound did not demonstrate a significant amount of pleural fluid to safely perform the procedure. Thoracentesis was deferred. D/ / Jair Atkinson / Jair Atkinson Interpreting Provider: Jair Atkinson Palliative Scale - Palliative Performance Scale How ambulatory is this patient?: Reduced What is patient's level of activity and evidence of disease?: Unable hobby/housework, Significant disease How much self-care assistance does patient require?: Occasional assistance necessary How much oral intake does the patient have?: Normal or reduced What is this patient's level of consciousness?: Full or confusion Palliative Performance Score: 80 % Consult Discharge Plan - Plan Referrals: Lucie Aragon, TEA PLANTATION WORKER [Primary Care Provider] -
[2018-04-11] MEDS ORDERED: Aminoglycoside Consult 1 EACH MC ONE (11:19)
--- NOTE | 2018-04-11 11:48 | Internal Med Progress Note ---
Hospitalist Progress Note - Encounter Date of Encounter: 04/11/18 Time of Encounter: 11:30 - Subjective Interval History: Patient seen and examined this morning at bedside. No acute overnight events. Denies any chest pain or shortness of breath. No fevers chills nausea vomiting bowel or bladder complaints - Exam Vitals: Temp Pulse Resp BP Pulse Ox 97.8 F 111 16 149/83 100 04/11/18 11:00 04/11/18 11:00 04/11/18 11:00 04/11/18 11:00 04/11/18 11:00 Exam: General: In no acute distress. Conversant. Pale Respiratory exam: Coarse breath sound bilaterally. no accessory muscle use. Cardiovascular exam: tachycardia, +S1, +S2. no murmur, gallop, rubs. GI/Abdominal exam: Non-tender, Non-distended, normal bowel sounds, soft, no peritoneal signs. Extremities exam: full ROM, no pedal edema, warm, pulses palpable in b/l lower extremities. no calf tenderness Neurological exam: CN II-XII intact, AO X3, no focal deficits. no pronater drift, facial droop, speech deficit Skin exam: No skin rash, ulcer, purpura or ecchymosis. - Assessment and Plan (1) CAD (coronary artery disease) Current Visit: Yes Status: Chronic (2) COPD (chronic obstructive pulmonary disease) Current Visit: Yes Status: Chronic (3) Essential hypertension Current Visit: Yes Status: Chronic (4) Lung cancer Current Visit: Yes Status: Acute (5) Atrial fibrillation Current Visit: Yes Status: Chronic (6) Malignant pleural effusion Current Visit: Yes Status: Acute (7) Hospital acquired PNA Current Visit: Yes Status: Acute - Summary of Assessment and Plan Summary of Assessment and Plan: Hospital acquired PNA, pleural effusion - On vanc and zosyn. Follow up cultures. Will DC vancomycin - Concern for Possible pneumonitis. Continue on steroids. Will require long taper. - Not significant effusion for thoracentesis COPD -No acute exacerbation. Continue nebs PRN Lung cancer - Metastatic small cell lung cancer. He progressed through 2 lines of fidel motherapy. Completed 4 cycles of Ipilumumab and Nivolumab on 02/28/2018. - CT abdomen and pelvis 02/14/2018 showed progression mainly in the left supraclavicular, mediastinal lymph nodes and left hilar mass. - Palliative care and oncology following - Patient desires to continue receiving cancer treatment if possible. However want to have another discussion with Brother this afternoon for hospice. Atrial fibrillation - Currently rate controlled. - Started on eliquis DVT Prophylaxis: - On eliquis PT recommended rehab but to have he doesn't want to spend remaining time in NH. To have discussion again today with Palliative care. - Time Spent with Patient Total time spent is greater than 50% in coordination of care (as documented) at patient's floor/unit and/or counseling patient: Internal Medicine: Result - Labs CBC & Chem 7: 04/11/18 03:40 04/11/18 03:40 Labs: Short CBC 04/11/18 Range/Units 03:40 WBC 8.3 (4.3-11.1) K/mcL Hgb 8.9 L (12.9-16.9) g/dL Hct 27.1 L (37.5-50.1) % Plt Count 207 (140-400) K/mcL Neutrophils # 6.8 (1.6-8.9) K/mcL BMP 04/11/18 03:40 Sodium 137 Potassium 4.0 Chloride 109 H Carbon Dioxide 22 L BUN 13 Creatinine 0.73 Glucose 169 H Calcium 8.1 L - Impressions Impressions Chest Ultrasound 04/10/18 07:42 FINDINGS/IMPRESSION: Limited ultrasound of the left chest was performed to assess for adequacy of pleural fluid for thoracentesis. Ultrasound did not demonstrate a significant amount of pleural fluid to safely perform the procedure. Thoracentesis was deferred. D/ / Jair Atkinson / Jair Atkinson Interpreting Provider: Jair Atkinson Consult Discharge Plan - Plan Referrals: Lucie Aragon, BOWLING ALLEY MECHANIC [Primary Care Provider] - (1) CAD (coronary artery disease) Qualifiers: Coronary Disease-Associated Artery/Lesion type: [place] artery [place] vs. transplanted heart: [place] heart Associated angina: without angina Qualified Code(s): I25.10 - Atherosclerotic heart disease of [place] coronary artery without angina pectoris (2) COPD (chronic obstructive pulmonary disease) Qualifiers: COPD type: emphysema Emphysema type: panlobular Qualified Code(s): J43.1 - Panlobular emphysema (4) Lung cancer Qualifiers: Laterality: unspecified laterality Lung location: unspecified part of lung Qualified Code(s): C34.90 - Malignant neoplasm of unspecified part of unspecified bronchus or lung (5) Atrial fibrillation Qualifiers: Atrial fibrillation type: chronic Qualified Code(s): I48.2 - Chronic atrial fibrillation
--- NOTE | 2018-04-11 16:24 | Oncology Inp Progress Note ---
<Emanuel Triana S - Last Filed: 04/11/18 17:00> Date of Encounter: 04/11/18 Time of Encounter: 17:02 Oncology: Obj Data - Labs CBC & Chem 7: 04/11/18 03:40 04/11/18 03:40 Consult Discharge Plan - Plan Referrals: Lucie Aragon, MID WIFE [Primary Care Provider] - Inpatient Charges Provider: Dr. Figueroa Triana Follow up - Inpatient: [id number] - Attending Attestation I examined this patient and my medical decision-making was reviewed with the Advanced Practice Nurse. I agree with the documented findings, disposition and treatment plan as described except to the extent set forth below. 1. Progressive metastatic small cell lung cancer. Significant disease progression on immunotherapy. We discuss further treatment options. Options include single agent irinotecan versus clinical trial. I am not sure if there are any open clinical trials available at [facility]. Patient and brother things he is not strong enough for treatment which I agree. He still needs 6 L of oxygen by mask and has significant wheezing. The plan is to get his breathing was stabilized in getting to rehabilitation for 3-6 weeks. We also discussed hospice as an option and they are going to think about it. We will make Final decision according to call his clinical condition improves in the next few days. Overall prognosis poor and patient and family understands <Tova Winter L - Last Filed: 04/12/18 08:46> Date of Encounter: 04/11/18 (1) Goals of care, counseling/discussion Current Visit: Yes Status: Acute Assessment and plan: Palliative care held family discussion regarding goals of care today Hospice philosophy was discussed Plan: Overall prognosis is poor and patient understands he has an incurable diagnosis, he has progressed on third line of treatment, most recently progressed on Ipilimumab/Nivolumab---further treatment options may include clinical trial at [facility] vs. irinotecan The hospice philosophy was again discussed which would be an appropriate route for patient, overall, he is interested in pursuing rehabilitation at this time which is also reasonable. We discussed that if he does not make strides in rehab, that hospice would be an appropriate next step (2) Pneumonia Current Visit: Yes Status: Acute Assessment and plan: CT of the chest today reveals Moderate left pleural effusion which is stable or slightly decreased compared to prior. Redemonstration of extensive marked mediastinal/hilar lymphadenopathy which on the left is confluent with large left upper lobe mass with surrounding atelectasis and ground-glass/septal thickening. New/worsening right upper lobe posterior segment ground-glass attenuation/underlying septal thickening may reflect disease progression or pneumonitis. Upper abdominal lymphadenopathy with retroperitoneal and periportal lymph nodes noted along with left axillary lymphadenopathy. New right axilla fat infiltration may reflect recent intervention. Osseous metastasis stable. Plan: Given recent immunotherapy and risk for treatment induced pneumonitis we will start solumedrol 40 mg Q12H with long taper, may taper to 40 mg prednisone daily around discharge with long taper (40 daily x1 week, 30 daily x1 week, ect.) Treatment of pneumonia per hospitalist team- on vanc/zosyn Qualifiers: Pneumonia type: due to unspecified organism Laterality: right Lung location: lower lobe of lung Qualified Code(s): J18.1 - Lobar pneumonia, unspecified organism (3) Small cell lung cancer Current Visit: No Status: Chronic Assessment and plan: Extensive cell small cell lung cancer progressed after immunotherapy with combination of ipilimumab and Nivolumab. Last dose was 02/26/2018 Plan: As discussed above, patient interested in pursuing further treatment options if he is a candidate, this will continue to be ongoing discussion Likely plan for rehabilitation at SNF, we will monitor his performance status as outpatient Oncology will otherwise plan to sign off at this time as patient continues to recover from acute illness and plans for upcoming d/c to SNF, we will arrange for outpatient follow up in about 10-14 days. (4) DVT prophylaxis Current Visit: Yes Status: Acute Assessment and plan: Continue Eliquis Oncology: Subj Interval history: Sitting up in bed, brother and sister at bedside. Strength and appetite improving. Continues to be SOB with cough. On oxymask at 6L. Denies pain. - Constitutional General appearance: cooperative, no acute distress, no febrile Exam: chronically ill appearing - Head Head exam: Present: atraumatic - ENT ENT exam: Present: mucous membranes moist, normal oropharynx - Respiratory Respiratory exam: Present: rhonchi, wheezes. Absent: respiratory distress - Cardiovascular Cardiovascular exam: Present: RRR, +S1, +S2 - GI/Abdominal GI/Abdominal exam: Present: normal bowel sounds, soft. Absent: tenderness - Extremities Exam Extremities exam: Present: normal inspection. Absent: calf tenderness - Neurological Exam Neurological exam: Present: alert, oriented X3, no focal deficits, strengths equal and symetr throughout - Psychiatric Psychiatric exam: Present: normal affect, normal mood - Skin Skin exam: Present: dry, intact, pallor, warm Oncology: Obj Data - Labs CBC & Chem 7: 04/12/18 03:05 04/12/18 03:05 Inpatient Charges Provider: Dr. Figueroa Triana
[2018-04-11] MEDS: *HR* LORazepam 0.5 MG TABLET PO SCH (20:42)
[2018-04-12] MEDS: Ipratropium/Albuterol Neb 3 ML IH SCH ×6 (00:10→20:30)
[2018-04-12] MEDS: Piperacillin/Tazobactam 3.375 GM in 0.9 % Sodium Chloride Mini Bag 100 ML IVPB SCH ×3 (00:20→16:18)
[2018-04-12] MEDS: *HR* OxyCODONE Immed Rel 5 MG TABLET PO SCH ×3 (00:20→16:17)
[2018-04-12 03:46] LABS: Basophils % 0.2 %; Hematocrit 26.9 % (37.5-50.1); Hemoglobin 8.8 g/dL (12.9-16.9); Lymphocytes # 0.5 K/mcL (0.6-4.6); Lymphocytes % 8.5 %; Mean Corpuscular HGB Conc 32.7 g/dL (31.6-35.5); Mean Corpuscular Hemoglobin 31.7 pg (28.0-33.3); Mean Corpuscular Volume 96.8 fL (83.0-100.0); Monocytes # 0.7 K/mcL (0.0-1.3); Monocytes % 11.2 %; Nucleated Red Blood Cells 0.3 /100 WBC (0); Platelet Count 190 K/mcL (140-400); Red Blood Count 2.78 M/mcL (4.19-5.50); Red Cell Distribution Width 17.3 % (11.5-14.5); Segmented Neutrophils % 78.1 %
[2018-04-12 04:00] LABS: BUN/Creatinine Ratio 17 (6-26); Blood Urea Nitrogen 12 mg/dL (8-23); Calcium 8.3 mg/dL (8.6-10.3); Carbon Dioxide 24 mEq/L (23-29); Chloride 111 mEq/L (98-107); Glucose 140 mg/dL (70-105); Magnesium 1.7 mg/dL (1.6-2.6); Osmolality,Calculated 286 (280-300); Phosphorous 2.2 mg/dL (2.7-4.5); Potassium 3.9 mEq/L (3.5-5.1); Sodium 137 mEq/L (136-145); eGFR For Non-African Americans > 60 (> 60)
[2018-04-12] MEDS: MethylPREDNISolone 40 MG/ML VIAL IVP SCH (04:33)
[2018-04-12] MEDS: 0.9 % Sodium Chloride 1,000 ML IVC SCH (05:00)
[2018-04-12] MEDS: Budesonide/Formoterol 160/4.5 1 PUFF INH IH SCH ×2 (07:22→20:32)
[2018-04-12] MEDS: Pregabalin 50 MG CAPSULE PO SCH ×2 (08:05→20:26)
[2018-04-12] MEDS: Cyanocobalamin (B-12) 1,000 MCG TABLET PO SCH (08:05)
[2018-04-12] MEDS: Apixaban 5 MG TABLET PO SCH ×2 (08:05→20:26)
[2018-04-12] MEDS: Aspirin Enteric Coated 81 MG Tablet PO SCH (08:05)
--- NOTE | 2018-04-12 08:22 | Internal Med Progress Note ---
Hospitalist Progress Note - Encounter Date of Encounter: 04/12/18 Time of Encounter: 08:21 - Subjective Interval History: Patient seen and examined this morning at bedside. No acute overnight events. Denies any chest pain or shortness of breath. No fevers chills nausea vomiting bowel or bladder complaints - Exam Vitals: Temp Pulse Resp BP Pulse Ox 97.6 F 100 20 163/99 100 04/12/18 07:22 04/12/18 07:22 04/12/18 07:22 04/12/18 07:22 04/12/18 07:22 Exam: General: In no acute distress. Conversant. Pale Respiratory exam: Coarse breath sound bilaterally. no accessory muscle use. Cardiovascular exam: tachycardia, +S1, +S2. no murmur, gallop, rubs. GI/Abdominal exam: Non-tender, Non-distended, normal bowel sounds, soft, no peritoneal signs. Extremities exam: full ROM, 1+ pedal edema, warm, pulses palpable in b/l lower extremities. no calf tenderness Neurological exam: CN II-XII intact, AO X3, no focal deficits. no pronater drift, facial droop, speech deficit Skin exam: No skin rash, ulcer, purpura or ecchymosis. - Assessment and Plan (1) CAD (coronary artery disease) Current Visit: Yes Status: Chronic (2) COPD (chronic obstructive pulmonary disease) Current Visit: Yes Status: Chronic (3) Essential hypertension Current Visit: Yes Status: Chronic (4) Lung cancer Current Visit: Yes Status: Acute (5) Atrial fibrillation Current Visit: Yes Status: Chronic (6) Malignant pleural effusion Current Visit: Yes Status: Acute (7) Hospital acquired PNA Current Visit: Yes Status: Acute - Summary of Assessment and Plan Summary of Assessment and Plan: Mild diastolic dysfunction - Based on ECHO in February. Recived IVF initially. stopped today - With some pedal edema. Will give lasix to improve respiratory status. Hospital acquired PNA, pleural effusion - Consolidation on CT could be due to lymphangitic spread - vanc stopped. continue zosyn. Follow up cultures. - Concern for Possible pneumonitis. Continue on steroids. Will require long taper on discharge. - Not significant effusion for thoracentesis COPD - No acute exacerbation. Continue nebs PRN, symbicort. Lung cancer - Metastatic small cell lung cancer. He progressed through 2 lines of chemotherapy. Completed 4 cycles of Ipilumumab and Nivolumab on 02/28/2018. - CT abdomen and pelvis 02/14/2018 showed progression mainly in the left supraclavicular, mediastinal lymph nodes and left hilar mass. - Palliative care and oncology following - Patient desires to continue receiving cancer treatment if possible. - To attempt at rehabilitation first as not ready completely for hospice yet. Atrial fibrillation - Slightly tachycardic still. Not on BB/CCB at home. Will start on low dose metoprolol. - on eliquis DVT Prophylaxis: - On eliquis Plan for DC to Rehab - Time Spent with Patient Total time spent is greater than 50% in coordination of care (as documented) at patient's floor/unit and/or counseling patient: Internal Medicine: Result - Labs CBC & Chem 7: 04/12/18 03:05 04/12/18 03:05 Labs: Short CBC 04/12/18 Range/Units 03:05 WBC 6.4 (4.3-11.1) K/mcL Hgb 8.8 L (12.9-16.9) g/dL Hct 26.9 L (37.5-50.1) % Plt Count 190 (140-400) K/mcL Neutrophils # 5.0 (1.6-8.9) K/mcL BMP 04/12/18 03:05 Sodium 137 Potassium 3.9 Chloride 111 H Carbon Dioxide 24 BUN 12 Creatinine 0.69 L Glucose 140 H Calcium 8.3 L Consult Discharge Plan - Plan Referrals: Lucie Aragon, INTERLIBR[employer] LOAN SPECIALIST [Primary Care Provider] - (1) CAD (coronary artery disease) Qualifiers: Coronary Disease-Associated Artery/Lesion type: [place] artery [place] vs. transplanted heart: [place] heart Associated angina: without angina Qualified Code(s): I25.10 - Atherosclerotic heart disease of [place] coronary artery without angina pectoris (2) COPD (chronic obstructive pulmonary disease) Qualifiers: COPD type: emphysema Emphysema type: panlobular Qualified Code(s): J43.1 - Panlobular emphysema (4) Lung cancer Qualifiers: Laterality: unspecified laterality Lung location: unspecified part of lung Qualified Code(s): C34.90 - Malignant neoplasm of unspecified part of unspecified bronchus or lung (5) Atrial fibrillation Qualifiers: Atrial fibrillation type: chronic Qualified Code(s): I48.2 - Chronic atrial fibrillation
[2018-04-12] MEDS ORDERED: Furosemide 20 MG/2 ML VIAL IVP ONE ×2 (08:23→20:00)
--- NOTE | 2018-04-12 14:22 | Palliative Progress Note ---
Date of Encounter: 04/12/18 Time of Encounter: 13:00 - Assessment and plan (1) Small cell lung cancer in adult Current Visit: No Status: Chronic Assessment and plan: Patient desires to take time to improve on his health with attempt at rehab at [facility]. (2) Pain Current Visit: No Status: Chronic Assessment and plan: Patient requesting minimal pain medications for pain to chest and breathing. Oxycodone effective. (3) Goals of care, counseling/discussion Current Visit: Yes Status: Acute Assessment and plan: Patient will transition to ECF at [facility] and attempt rehab. Patient actively participating in PT with ambulation this AM on walker. Patient is aware of Hospice availability and agrees to transition when the time is right for him. Kin boyd does desire to eventually transition home but is willing to try ECF at [facility]. Patient is DNRCC - [facility]. - Time Spent With Patient Total time spent is greater than 50% in coordination of care (as documented) at patient's floor/unit and/or counseling patient: 25 - 35 minutes - Subjective Interval history: Patient resting. Awakens easy for visit. Patient participating in PT and ambulated with walker in the [place] this AM. No other complaints. - Constitutional Vitals: Abnormal lab results RBC 2.78 M/mcL (4.19-5.50) L 04/12/18 03:05 Hgb 8.8 g/dL (12.9-16.9) L 04/12/18 03:05 Hct 26.9 % (37.5-50.1) L 04/12/18 03:05 RDW 17.3 % (11.5-14.5) H 04/12/18 03:05 Lymphocytes # 0.5 K/mcL (0.6-4.6) L 04/12/18 03:05 Nucleated RBCs/100 WBC 0.3 /100 WBC (0) H 04/12/18 03:05 Chloride 111 mEq/L (98-107) H 04/12/18 03:05 Creatinine 0.69 mg/dL (0.70-1.30) L 04/12/18 03:05 Glucose 140 mg/dL (70-105) H 04/12/18 03:05 Calcium 8.3 mg/dL (8.6-10.3) L 04/12/18 03:05 Phosphorus 2.2 mg/dL (2.7-4.5) L 04/12/18 03:05 Vancomycin Trough 19 mcg/mL (5-10) H 04/10/18 22:10 - Head Head exam: Present: atraumatic, normal inspection - Eye Eye exam: Present: PERRL Pupils: Present: PERRL - Neck Neck exam: Present: full ROM - Respiratory Respiratory exam: Present: decreased breath sounds, rhonchi - Expanded Respiratory Exam Location: decreased breath sounds: Left, Right, Lower, rhonchi: Left, Right, Upper - Cardiovascular Cardiovascular exam: Present: RRR, +S1, +S2 - Expanded Cardiovascular Exam Peripheral pulses: 1+: Femoral (L) PM, Femoral (R) PM, Posterior Tibialis (L), Posterior Tibialis (R), 2+: Carotid (L) PM, Carotid (R) PM, Radial (L), Radial (R), Dorsalis Pedis (L) PM, Dorsalis Pedis (R) PM - GI/Abdominal GI/Abdominal exam: Present: soft - Extremities Exam Extremities exam: Present: full ROM - Neurological Exam Neurological exam: Present: alert, oriented X3 - Psychiatric Psychiatric exam: Present: normal affect - Skin Skin exam: Present: pallor, warm Palliative Quality Palliative Quality: Screen for Code Status: Yes, Screen for Goals of Care: Yes, Screen for Pain: Yes, If Pain Regimen Started, Initiate Bowel Regimen: NA, Screen for Nausea/Vomitting: Yes Code Status: 04/09/18 02:44 FULL [Resuscitation Status: Active] [RES] Routine Comment: Resuscitation Status: Full Code 04/10/18 07:52 DNR [Resuscitation Status: Active] [RES] Routine Comment: State form completed. Resuscitation Status: DNR-Comfort Care-Arrest - Labs CBC & Chem 7: 04/12/18 03:05 04/12/18 03:05 Labs: Laboratory Results - last 24 hr 04/12/18 04/12/18 03:05 03:05 WBC 6.4 RBC 2.78 L Hgb 8.8 L Hct 26.9 L MCV 96.8 MCH 31.7 MCHC 32.7 RDW 17.3 H Plt Count 190 MPV 10.0 Immature Gran % 2.0 Seg Neutrophils % 78.1 Lymphocytes % 8.5 Monocytes % 11.2 Eosinophils % 0.0 Basophils % 0.2 Neutrophils # 5.0 Lymphocytes # 0.5 L Monocytes # 0.7 Eosinophils # 0.0 Basophils # 0.0 Nucleated RBCs/100 WBC 0.3 H Sodium 137 Potassium 3.9 Chloride 111 H Carbon Dioxide 24 BUN 12 Creatinine 0.69 L Est GFR ( Amer) > 60 Est GFR (Non-Af Amer) > 60 BUN/Creatinine Ratio 17 Glucose 140 H Calculated Osmolality 286 Calcium 8.3 L Phosphorus 2.2 L Magnesium 1.7 Palliative Scale - Palliative Performance Scale How ambulatory is this patient?: Reduced What is patient's level of activity and evidence of disease?: Unable hobby/h ousework, Significant disease How much self-care assistance does patient require?: Occasional assistance necessary How much oral intake does the patient have?: Normal or reduced What is this patient's level of consciousness?: Full or confusion Palliative Performance Score: 80 % Consult Discharge Plan - Plan Referrals: Lucie Aragon, [employer] MAKER [Primary Care Provider] -
[2018-04-12] MEDS: *HR* LORazepam 0.5 MG TABLET PO SCH (20:25)
[2018-04-13] MEDS: Piperacillin/Tazobactam 3.375 GM in 0.9 % Sodium Chloride Mini Bag 100 ML IVPB SCH ×3 (00:01→16:37)
[2018-04-13] MEDS: Ipratropium/Albuterol Neb 3 ML IH SCH ×7 (00:03→23:47)
[2018-04-13 05:19] LABS: Basophils % 0.3 %; Eosinophils % 0.1 %; Hematocrit 28.4 % (37.5-50.1); Hemoglobin 9.5 g/dL (12.9-16.9); Immature Granulocytes % 2.5 % (0-4); Lymphocytes # 1.2 K/mcL (0.6-4.6); Lymphocytes % 15.5 %; Mean Corpuscular HGB Conc 33.5 g/dL (31.6-35.5); Mean Corpuscular Hemoglobin 31.8 pg (28.0-33.3); Mean Platelet Volume 9.3 fL (9.4-12.4); Monocytes # 1.1 K/mcL (0.0-1.3); Monocytes % 13.9 %; Neutrophils # 5.4 K/mcL (1.6-8.9); Nucleated Red Blood Cells 0.9 /100 WBC (0); Platelet Count 222 K/mcL (140-400); Red Blood Count 2.99 M/mcL (4.19-5.50); Red Cell Distribution Width 17.6 % (11.5-14.5); Segmented Neutrophils % 67.7 %
[2018-04-13 05:40] LABS: BUN/Creatinine Ratio 15 (6-26); Blood Urea Nitrogen 13 mg/dL (8-23); Calcium 8.8 mg/dL (8.6-10.3); Carbon Dioxide 32 mEq/L (23-29); Chloride 102 mEq/L (98-107); Glucose 98 mg/dL (70-105); Magnesium 1.6 mg/dL (1.6-2.6); Osmolality,Calculated 290 (280-300); Phosphorous 2.6 mg/dL (2.7-4.5); Potassium 3.3 mEq/L (3.5-5.1); Sodium 140 mEq/L (136-145); eGFR For Non-African Americans > 60 (> 60)
[2018-04-13] MEDS: Budesonide/Formoterol 160/4.5 1 PUFF INH IH SCH ×2 (07:33→19:19)
[2018-04-13] MEDS: MethylPREDNISolone 40 MG/ML VIAL IVP SCH (09:51)
[2018-04-13] MEDS: *HR* OxyCODONE Immed Rel 5 MG TABLET PO SCH ×3 (10:12→16:30)
[2018-04-13] MEDS: Aspirin Enteric Coated 81 MG Tablet PO SCH (10:14)
[2018-04-13] MEDS: Apixaban 5 MG TABLET PO SCH ×2 (10:15→21:06)
[2018-04-13] MEDS: Pregabalin 50 MG CAPSULE PO SCH ×2 (10:17→21:06)
[2018-04-13] MEDS: Cyanocobalamin (B-12) 1,000 MCG TABLET PO SCH (10:18)
--- NOTE | 2018-04-13 10:54 | Palliative Progress Note ---
Date of Encounter: 04/13/18 Time of Encounter: 09:30 - Assessment and plan (1) Pain Current Visit: No Status: Chronic Assessment and plan: Reports pain management has improved over the last 24 hours. Continue with Current schedule. (2) Goals of care, counseling/discussion Current Visit: Yes Status: Acute Assessment and plan: Met with patient. Patient ready to go to [facility] at Discharge. According to chart review, patient has been accepted by facility, only awaiting insurance approval. Palliative care to sign off as symptoms are controlled, discharge plan in place. Please re-consult as needed. Thank you for including Palliative care team in the care of your patient. (3) Pneumonia Current Visit: Yes Status: Acute Qualifiers: Pneumonia type: due to unspecified organism Laterality: right Lung location: lower lobe of lung Qualified Code(s): J18.1 - Lobar pneumonia, unspecified organism (4) Pleural effusion Current Visit: No Status: Acute Assessment and plan: IR consulted for thoracentesis; no thoracentesis to be preformed. (5) Small cell lung cancer in adult Current Visit: No Status: Chronic Assessment and plan: Oncology recommendations appreciated. Patient continues to be unsure of treatment plan post discharge related to Cancer treatment. Outpatient followup scheduled in 10-14 days. (6) Weakness Current Visit: Yes Status: Acute Assessment and plan: Patient admits weakness from prior to hospitalization. PT/OT evaluation recommends SNF for rehab. - Time Spent With Patient Total time spent is greater than 50% in coordination of care (as documented) at patient's floor/unit and/or counseling patient: - Subjective Interval history: Patient sitting up in bed, awake, alert, and oriented times 3 upon arrival for assessment. No family present at bedside. Patient reports pain controlled at this time in his back; has received 3 doses of scheduled Oxycodone with 0 doses of PRN Oxycodone in the last 24 hours. Patient reports new onset of right arm discomfort, right arm is more swollen than the other. Patient reports IV medication infused in arm, but feeling better. Patient agrees he had a good day yesterday. Reports he is ready to go to rehab at [facility]. - Constitutional Vitals: Abnormal lab results RBC 2.99 M/mcL (4.19-5.50) L 04/13/18 04:45 Hgb 9.5 g/dL (12.9-16.9) L 04/13/18 04:45 Hct 28.4 % (37.5-50.1) L 04/13/18 04:45 RDW 17.6 % (11.5-14.5) H 04/13/18 04:45 MPV 9.3 fL (9.4-12.4) L 04/13/18 04:45 Nucleated RBCs/100 WBC 0.9 /100 WBC (0) H 04/13/18 04:45 Potassium 3.3 mEq/L (3.5-5.1) L 04/13/18 04:45 Carbon Dioxide 32 mEq/L (23-29) H 04/13/18 04:45 Phosphorus 2.6 mg/dL (2.7-4.5) L 04/13/18 04:45 Vancomycin Trough 19 mcg/mL (5-10) H 04/10/18 22:10 General appearance: Present: cooperative, no acute distress - Head Head exam: Present: atraumatic, normal inspection - Eye Eye exam: Present: EOMI, PERRL. Absent: periorbital swelling, periorbital tenderness Pupils: Present: normal accommodation, PERRL - ENT ENT exam: Present: mucous membranes moist, normal external ear exam. Absent: mucous membranes dry - Neck Neck exam: Present: full ROM, normal inspection - Respiratory Respiratory exam: Present: rhonchi, wheezes. Absent: accessory muscle use, respiratory distress - Cardiovascular Cardiovascular exam: Present: +S1, +S2 - GI/Abdominal GI/Abdominal exam: Present: normal bowel sounds, soft. Absent: distended, tenderness - Rectal Rectal exam: Present: deferred - Extremities Exam Extremities exam: Present: tenderness (RUE). Absent: normal inspection (Right arm swollen more than left, noted purpura to area as well. ) - Expanded Upper Extremity Exam General: Absent: normal inspection Elbow exam: Present: erythema, swelling, tenderness Vascular: Present: radial pulse, ulnar pulse. Absent: pallor - Back Exam Back exam: Present: normal inspection - Neurological Exam Neurological exam: Present: alert, oriented X3, strengths equal and symetr throughout. Absent: altered - Psychiatric Psychiatric exam: Present: normal affect, normal mood - Skin Skin exam: Present: dry, intact, warm. Absent: normal color Palliative Quality Palliative Quality: Screen for Code Status: Yes, Screen for Goals of Care: Yes, Screen for Pain: Yes, If Pain Regimen Started, Initiate Bowel Regimen: NA, Screen for Nausea/Vomitting: Yes Code Status: 04/09/18 02:44 FULL [Resuscitation Status: Active] [RES] Routine Comment: Resuscitation Status: Full Code 04/10/18 07:52 DNR [Resuscitation Status: Active] [RES] Routine Comment: State form completed. Resuscitation Status: DNR-Comfort Care-Arrest - Labs CBC & Chem 7: 04/13/18 04:45 04/13/18 04:45 Labs: Laboratory Results - last 24 hr 04/13/18 04/13/18 04:45 04:45 WBC 8.0 RBC 2.99 L Hgb 9.5 L Hct 28.4 L MCV 95.0 MCH 31.8 MCHC 33.5 RDW 17.6 H Plt Count 222 MPV 9.3 L Immature Gran % 2.5 Seg Neutrophils % 67.7 Lymphocytes % 15.5 Monocytes % 13.9 Eosinophils % 0.1 Basophils % 0.3 Neutrophils # 5.4 Lymphocytes # 1.2 Monocytes # 1.1 Eosinophils # 0.0 Basophils # 0.0 Nucleated RBCs/100 WBC 0.9 H Sodium 140 Potassium 3.3 L Chloride 102 Carbon Dioxide 32 H BUN 13 Creatinine 0.84 Est GFR ( Amer) > 60 Est GFR (Non-Af Amer) > 60 BUN/Creatinine Ratio 15 Glucose 98 Calculated Osmolality 290 Calcium 8.8 Phosphorus 2.6 L Magnesium 1.6 Palliative Scale - Palliative Performance Scale How ambulatory is this patient?: Reduced What is patient's level of activity and evidence of disease?: Unable hobby/housework, Significant disease How much self-care assistance does patient require?: Occasional assistance necessary How much oral intake does the patient have?: Normal or reduced What is this patient's level of consciousness?: Full or confusion Palliative Performance Score: 80 % Consult Discharge Plan - Plan Referrals: Lucie Aragon, RADIOLOGY CT TECHNOLOGIST [Primary Care Provider] - (Patient is from [facility])
[2018-04-13] MEDS ORDERED: Furosemide 20 MG/2 ML VIAL IVP ONE (11:23)
--- NOTE | 2018-04-13 13:55 | Internal Med Progress Note ---
Hospitalist Progress Note - Encounter Date of Encounter: 04/13/18 Time of Encounter: 11:29 - Subjective Interval History: Patient seen and examined this morning at bedside. No acute overnight events. Breathing improving. Denies any chest pain, dizziness, lightheadedness. No fevers chills nausea vomiting bowel or bladder complaints - Exam Vitals: Temp Pulse Resp BP Pulse Ox 97.4 F L 97 18 83/56 97 04/13/18 11:50 04/13/18 11:50 04/13/18 11:50 04/13/18 12:59 04/13/18 11:50 Exam: General: In no acute distress. Conversant. Pale Respiratory exam: Coarse breath sound bilaterally. no accessory muscle use. Cardiovascular exam: RRR, +S1, +S2. no murmur, gallop, rubs. GI/Abdominal exam: Non-tender, Non-distended, normal bowel sounds, soft, no peritoneal signs. Extremities exam: full ROM, trace pedal edema, warm, pulses palpable in b/l lower extremities. no calf tenderness Neurological exam: CN II-XII intact, AO X3, no focal deficits. no pronater drift, facial droop, speech deficit Skin exam: No skin rash, ulcer, purpura or ecchymosis. - Assessment and Plan (1) CAD (coronary artery disease) Current Visit: Yes Status: Chronic (2) COPD (chronic obstructive pulmonary disease) Current Visit: Yes Status: Chronic (3) Essential hypertension Current Visit: Yes Status: Chronic (4) Lung cancer Current Visit: Yes Status: Acute (5) Atrial fibrillation Current Visit: Yes Status: Chronic (6) Malignant pleural effusion Current Visit: Yes Status: Acute (7) Hospital acquired PNA Current Visit: Yes Status: Acute - Summary of Assessment and Plan Summary of Assessment and Plan: Mild diastolic dysfunction - Diuresed yesterday with improved aeration of lung and pedal edema. - hold today given low BP today. Will hold BB as well. Had similar decrease in BP when started on BB in past per brother. Hospital acquired PNA, pleural effusion - Consolidation on CT could be due to lymphangitic spread - vanc stopped. continue zosyn. Blood cultures NGTD 04/09/18. - Concern for Possible pneumonitis. Continue on steroids. Will require long taper on discharge. - Not significant effusion for thoracentesis. COPD - No acute exacerbation. Continue nebs PRN, symbicort. Lung cancer - Metastatic small cell lung cancer. He progressed through 2 lines of chemotherapy. Completed 4 cycles of Ipilumumab and Nivolumab on 02/28/2018. - CT abdomen and pelvis 02/14/2018 showed progression mainly in the left supraclavicular, mediastinal lymph nodes and left hilar mass. - To attempt at rehabilitation first as not ready completely for hospice yet. Atrial fibrillation - BP low with beta binh started yesterday. will stop metoprolol at HR before <110 mostly. - on eliquis DVT Prophylaxis: - On eliquis Plan for DC to Rehab tomorrow if BP remains stable. - Time Spent with Patient Total time spent is greater than 50% in coordination of care (as documented) at patient's floor/unit and/or counseling patient: Internal Medicine: Result - Labs CBC & Chem 7: 04/13/18 04:45 04/13/18 04:45 Labs: Short CBC 04/13/18 Range/Units 04:45 WBC 8.0 (4.3-11.1) K/mcL Hgb 9.5 L (12.9-16.9) g/dL Hct 28.4 L (37.5-50.1) % Plt Count 222 (140-400) K/mcL Neutrophils # 5.4 (1.6-8.9) K/mcL BMP 04/13/18 04:45 Sodium 140 Potassium 3.3 L Chloride 102 Carbon Dioxide 32 H BUN 13 Creatinine 0.84 Glucose 98 Calcium 8.8 Consult Discharge Plan - Plan Referrals: Lucie Aragon, [employer] [Primary Care Provider] - (Patient is from [facility]) (1) CAD (coronary artery disease) Qualifiers: Coronary Disease-Associated Artery/Lesion type: [place] artery [place] vs. transplanted heart: [place] heart Associated angina: without angina Qualified Code(s): I25.10 - Atherosclerotic heart disease of [place] coronary artery without angina pectoris (2) COPD (chronic obstructive pulmonary disease) Qualifiers: COPD type: emphysema Emphysema type: panlobular Qualified Code(s): J43.1 - Panlobular emphysema (4) Lung cancer Qualifiers: Laterality: unspecified laterality Lung location: unspecified part of lung Qualified Code(s): C34.90 - Malignant neoplasm of unspecified part of unspeci fied bronchus or lung (5) Atrial fibrillation Qualifiers: Atrial fibrillation type: chronic Qualified Code(s): I48.2 - Chronic atrial fibrillation
[2018-04-13] MEDS ORDERED: Furosemide 40 MG/4 ML VIAL IVP ONE (20:00)
[2018-04-13] MEDS: *HR* LORazepam 0.5 MG TABLET PO SCH (21:06)
[2018-04-13] MEDS: *HR* OxyCODONE Immed Rel 5 MG TABLET PO PRN (21:06)
[2018-04-14] MEDS: *HR* OxyCODONE Immed Rel 5 MG TABLET PO SCH ×2 (00:57→07:56)
[2018-04-14] MEDS: Piperacillin/Tazobactam 3.375 GM in 0.9 % Sodium Chloride Mini Bag 100 ML IVPB SCH ×2 (00:58→07:53)
[2018-04-14] MEDS: Ipratropium/Albuterol Neb 3 ML IH SCH ×3 (03:47→11:28)
[2018-04-14 06:12] LABS: BUN/Creatinine Ratio 18 (6-26); Blood Urea Nitrogen 14 mg/dL (8-23); Calcium 8.5 mg/dL (8.6-10.3); Carbon Dioxide 31 mEq/L (23-29); Chloride 103 mEq/L (98-107); Glucose 113 mg/dL (70-105); Osmolality,Calculated 289 (280-300); Potassium 3.5 mEq/L (3.5-5.1); Sodium 139 mEq/L (136-145); eGFR For Non-African Americans > 60 (> 60)
[2018-04-14] MEDS: Budesonide/Formoterol 160/4.5 1 PUFF INH IH SCH (07:45)
[2018-04-14] MEDS: MethylPREDNISolone 40 MG/ML VIAL IVP SCH (07:53)
[2018-04-14] MEDS: Aspirin Enteric Coated 81 MG Tablet PO SCH (07:55)
[2018-04-14] MEDS: Cyanocobalamin (B-12) 1,000 MCG TABLET PO SCH (07:55)
[2018-04-14] MEDS: Apixaban 5 MG TABLET PO SCH (07:55)
[2018-04-14] MEDS: Pregabalin 50 MG CAPSULE PO SCH (07:56)
--- NOTE | 2018-04-14 10:29 | Discharge Summary ---
Date of Encounter: 04/14/18 Time of Encounter: 10:22 - Discharge Diagnosis (1) CAD (coronary artery disease) Priority: Secondary Status: Chronic Qualifiers: Coronary Disease-Associated Artery/Lesion type: [place] artery [place] vs. transplanted heart: [place] heart Associated angina: without angina Qualified Code(s): I25.10 - Atherosclerotic heart disease of [place] coronary artery without angina pectoris (2) COPD (chronic obstructive pulmonary disease) Priority: Secondary Status: Chronic Qualifiers: COPD type: emphysema Emphysema type: panlobular Qualified Code(s): J43.1 - Panlobular emphysema (3) Essential hypertension Priority: Secondary Status: Chronic (4) Lung cancer Priority: Primary Status: Acute Qualifiers: Laterality: unspecified laterality Lung location: unspecified part of lung Qualified Code(s): C34.90 - Malignant neoplasm of unspecified part of unspecified bronchus or lung (5) Atrial fibrillation Priority: Secondary Status: Chronic Qualifiers: Atrial fibrillation type: chronic Qualified Code(s): I48.2 - Chronic atrial fibrillation (6) Malignant pleural effusion Priority: Secondary Status: Acute (7) Hospital acquired PNA Priority: Primary Status: Acute Hospital course: Mr. Shah is a 58 year old male with past medical history of metastatic small cell lung cancer with recent cardiac tamponade and pericardial window and malignant effusion, atrophy was, COPD, CAD admitted for shortness of breath found to have possible HCAP. Patient was started on empiric antibiotics with vancomycin and Zosyn. Patient had minimal fluid for thoracentesis. Oncology and palliative care consult was obtained. Given patient was on immunotherapy pneumonitis was considered also possibility versus lymphatic spread of his cancer. Per palliative care discussion patient had discussion about hospice philosophy however patient once to undergo rehabilitation and thinking whether he will be able to get further treatment for his lung cancer. Patient was continued on Zosyn and vancomycin was stopped. He did not do so IV fluids and all of some edema for which he required a few doses of Lasix. Blood culture did not grow any organisms. Patient was continued on IV Solu-Medrol which was gradually tapered. Patient's atrial fibrillation was controlled and was started on metoprolol for slightly better rate controlled however could not tolerate due to hypotension. He was continued on Eliquis for anticoagulation. Physical therapy recommended SNF placement. Patient metoprolol was stopped and he is blood pressure remained stable. Patient will be discharged on Symbicort and prednisone long taper. Arrangement has been made to discharge patient to SNF. Discharge discussed with: patient, family, nurse - Time Spent with Patient Total time spent providing and/or coordinating discharge services: Greater than 30 minutes (35) - Discharge Medications Prescriptions: New Budesonide/Formoterol 160/4.5 [Symbicort 160/4.5] 2 puff IH BIDR 30 Days #1 inh predniSONE [PredniSONE] See Taper PO DAILY 28 Days #70 tablet Continue Atorvastatin [Lipitor] 40 mg PO HS Pantoprazole Sodium [Protonix] 40 mg PO DAILY Aspirin [Lo-Dose Aspirin EC] 81 mg PO DAILY Nitroglycerin [Nitrostat] 0.4 mg SL Q5M PRN PRN Reason: Chest Pain Montelukast [Singulair] 10 mg PO DAILY PRN PRN Reason: Wheezing/Allergy Symptoms Pregabalin [Lyrica] 100 mg PO BID Apixaban [Eliquis] 5 mg PO BID Cyanocobalamin (Vitamin B-12) [Vitamin B12] 1 tab PO DAILY #30 tab Celecoxib [Celebrex] 200 mg PO DAILY GuaiFENesin ER [Mucinex] 600 mg PO BID PRN PRN Reason: Congestion Tizanidine HCl 4 mg PO HS Amitriptyline [Elavil] 25 mg PO HS Prochlorperazine Maleate [Compazine] 10 mg PO QAM PRN PRN Reason: Nausea LORazepam [Ativan] 0.5 mg PO HS Midodrine [ProAmatine] 5 mg PO 0800,1200,1700 #90 tablet Oxycodone HCl 15 mg PO QID Albuterol Sulfate [Albuterol Inhaler] 2 puff IH Q4HR PRN #1 hfa.aer.ad PRN Reason: Shortness Of Breath Home Medications: Aspirin [Lo-Dose Aspirin EC] 81 mg PO DAILY 07/16/16 [History] Atorvastatin [Lipitor] 40 mg PO HS 07/16/16 [History] Pantoprazole Sodium [Protonix] 40 mg PO DAILY 07/16/16 [History] Montelukast [Singulair] 10 mg PO DAILY PRN 10/04/16 [History] Nitroglycerin [Nitrostat] 0.4 mg SL Q5M PRN 10/04/16 [History] Pregabalin [Lyrica] 100 mg PO BID 10/24/17 [History] Apixaban [Eliquis] 5 mg PO BID 11/20/17 [History] Cyanocobalamin (Vitamin B-12) [Vitamin B12] 1 tab PO DAILY #30 tab 12/27/17 [Rx] Albuterol Sulfate [Albuterol Inhaler] 2 puff IH Q4HR PRN #1 hfa.aer.ad 01/26/18 [Rx] Celecoxib [Celebrex] 200 mg PO DAILY 01/29/18 [History] Amitriptyline [Elavil] 25 mg PO HS 03/05/18 [History] GuaiFENesin ER [Mucinex] 600 mg PO BID PRN 03/05/18 [History] LORazepam [Ativan] 0.5 mg PO HS 03/05/18 [History] Prochlorperazine Maleate [Compazine] 10 mg PO QAM PRN 03/05/18 [History] Tizanidine HCl 4 mg PO HS 03/05/18 [History] Midodrine [ProAmatine] 5 mg PO 0800,1200,1700 #90 tablet 03/17/18 [Rx] Oxycodone HCl 15 mg PO QID 04/09/18 [History] Budesonide/Formoterol 160/4.5 [Symbicort 160/4.5] 2 puff IH BIDR 30 Days #1 inh 04/14/18 [Rx] predniSONE [PredniSONE] See Taper PO DAILY 28 Days #70 tablet 04/14/18 [Rx] Allergies/Adverse Reactions: Allergy/AdvReac Type Severity Reaction Status Date / Time amlodipine AdvReac See Verified 02/28/18 15:24 Comments Date of admission: 04/09/18 03:07 Primary care physician: Lucie Aragon CNP Consults: 04/09/18 07:41 Consult to Palliative Care [CONS] Routine Comment: Consulting Provider: Palliative Care [facility] Reason for Consult: Metastatic lung cancer with multiple hospitalizations. Goals of care/ code status Call Completed: No 04/09/18 08:56 Consult to Nurse Navigator [CONS] Routine Comment: pn 04/09/18 09:26 Consult to Oncology [CONS] Routine Consulting Provider: [facility] Reason for Consult: metastatic lung cancer Call Completed: No 04/10/18 07:52 Consult to Occupational Therapy [CONS] Routine Comment: Evaluate, develop and implement POC Reason for Consult: Discharge planning. Interested in ECF for rehab. Does patient have active BEDREST order?: No Is patient medically & hemodynamically stable?: Yes Consult to Physical Therapy [CONS] Routine Comment: Evaluate, develop and implement POC Reason for Consult: discharge planning. Interested in ECF for rehab. Does patient have active BEDREST order?: No Is patient medically & hemodynamically stable?: Yes Discharging clinician: Gregory Ramirez - Constitutional Vitals: Temp Pulse Resp BP Pulse Ox 97.4 F L 103 18 121/83 96 04/14/18 08:02 04/14/18 08:02 04/14/18 08:02 04/14/18 08:02 04/14/18 08:02 Exam: General: In no acute distress. Conversant. Pale Respiratory exam: Coarse breath sound bilaterally. no accessory muscle use. Cardiovascular exam: RRR, +S1, +S2. no murmur, gallop, rubs. GI/Abdominal exam: Non-tender, Non-distended, normal bowel sounds, soft, no peritoneal signs. Extremities exam: full ROM, trace pedal edema, warm, pulses palpable in b/l lower extremities. no calf tenderness Neurological exam: CN II-XII intact, AO X3, no focal deficits. no pronater drift, facial droop, speech deficit Skin exam: No skin rash, ulcer, purpura or ecchymosis. - Patient Status Disposition: Transfer SNF Condition: Fair - Discharge Instructions Follow Up With: Lucie Aragon, CHRONOGRAPH OPERATOR [Primary Care Provider] - (Patient is from ECF)
--- NOTE | 2018-04-14 10:43 | Physician Discharge Referral ---
ExtendedCare Referral Info Institutional Level of Care: Skilled - Diagnosis (1) CAD (coronary artery disease) Status: Chronic (2) COPD (chronic obstructive pulmonary disease) Status: Chronic (3) Essential hypertension Status: Chronic (4) Lung cancer Status: Acute (5) Atrial fibrillation Status: Chronic (6) Malignant pleural effusion Status: Acute (7) Hospital acquired PNA Status: Acute - Transfer Medications Prescriptions: Budesonide/Formoterol 160/4.5 [Symbicort 160/4.5] 2 puff IH BIDR 30 Days #1 inh LORazepam [Ativan] 0.5 mg PO HS 3 Days #3 tablet Oxycodone HCl 15 mg PO QID 4 Days #12 tablet predniSONE [PredniSONE] See Taper PO DAILY 28 Days #70 tablet Home Medications: Aspirin [Lo-Dose Aspirin EC] 81 mg PO DAILY 07/16/16 [History] Atorvastatin [Lipitor] 40 mg PO HS 07/16/16 [History] Pantoprazole Sodium [Protonix] 40 mg PO DAILY 07/16/16 [History] Montelukast [Singulair] 10 mg PO DAILY PRN 10/04/16 [History] Nitroglycerin [Nitrostat] 0.4 mg SL Q5M PRN 10/04/16 [History] Pregabalin [Lyrica] 100 mg PO BID 10/24/17 [History] Apixaban [Eliquis] 5 mg PO BID 11/20/17 [History] Cyanocobalamin (Vitamin B-12) [Vitamin B12] 1 tab PO DAILY #30 tab 12/27/17 [Rx] Albuterol Sulfate [Albuterol Inhaler] 2 puff IH Q4HR PRN #1 hfa.aer.ad 01/26/18 [Rx] Celecoxib [Celebrex] 200 mg PO DAILY 01/29/18 [History] Amitriptyline [Elavil] 25 mg PO HS 03/05/18 [History] GuaiFENesin ER [Mucinex] 600 mg PO BID PRN 03/05/18 [History] Prochlorperazine Maleate [Compazine] 10 mg PO QAM PRN 03/05/18 [History] Tizanidine HCl 4 mg PO HS 03/05/18 [History] Midodrine [ProAmatine] 5 mg PO 0800,1200,1700 #90 tablet 03/17/18 [Rx] Budesonide/Formoterol 160/4.5 [Symbicort 160/4.5] 2 puff IH BIDR 30 Days #1 inh 04/14/18 [Rx] LORazepam [Ativan] 0.5 mg PO HS 3 Days #3 tablet 04/14/18 [Rx] Oxycodone HCl 15 mg PO QID 4 Days #12 tablet 04/14/18 [Rx] predniSONE [PredniSONE] See Taper PO DAILY 28 Days #70 tablet 04/14/18 [Rx] Allergies/Adverse Reactions: Allergy/AdvReac Type Severity Reaction Status Date / Time amlodipine AdvReac See Verified 02/28/18 15:24 Comments - Respiratory Orders Smoking Cessation: Smoking cessation has been advised. For more information, call the [place] Tobacco Quit Line at 0-659-VURKNOW. CERTIFICATION: I certify that the transfer of the above named patient to an Extended Care Facility is necessary for the continuing treatment of the diagnosis listed. The above information is true and accurate reflection of patient's current condition. Confidential - Redisclosure prohibited without a patient's written consent.
[2018-04-14 10:56] VITALS: BP 113/74
== END 2018-04-14 13:06 | DRG 194 ==
LOC: 2ANU → SUATTDRO 04-09 03:07 → UNDODISIN 04-14 04:10
PROVIDERS: ADMIT Internal Medicine; ATTEND Internal Medicine